=== PATIENT | male | born 1955 | race Caucasian/White ===

== ENCOUNTER → 2016-10-10 | Outpatient (CLI) | payer OTHER ==
[~2016-10-10] MED LIST: ASPEC81 PO; METO25TA3 PO; NTRGSL/4 UT; ROSU40TA PO; WARF5TAB90 PO
[2016-10-10 17:07] LABS: BASO % 0.7 %; BASO ABS # 0.03 K/uL (0-0.2); COMPLETE YES; EOS % 2.7 %; HEMATOCRIT 42.4 % (42-52); LYMPH % 39.5 %; LYMPH ABS # 1.75 K/uL (1.2-3.4); MEAN CELL VOLUME 91.2 fL (80-100); MEAN CORPUSCULAR HEMOGLOBIN 31.2 pg (25-34); MEAN CORPUSCULAR HGB CONC 34.2 g/dl (32-36); MEAN PLATELET VOLUME 11.7 fL (7.4-10.4); MONO % 9.9 %; NEUT % 47.2 %; PLATELET COUNT 260 K/uL (130-400); RED BLOOD COUNT 4.65 M/uL (4.7-6.1); WHITE BLOOD COUNT 4.43 K/uL (4.8-10.8)
[2016-10-10 17:36] LABS: ALT/SGPT 29 U/L (12-78); BLOOD UREA NITROGEN 14 mg/dl (7-18); BUN/CREATININE RATIO 11.5 (10-20); CALCIUM 8.8 mg/dl (8.5-10.1); CARBON DIOXIDE 29 mmol/L (21-32); CHLORIDE 104 mmol/L (98-107); CHOLESTEROL 181 mg/dl (0-200); GLUCOSE 96 mg/dl (70-99); SODIUM 140 mmol/L (136-145)
[2016-10-10 17:40] LABS: ALB/GLOB RATIO 1.1 (0.9-2); ALKALINE PHOSPHATASE 81 U/L (45-117); AST/SGOT 19 U/L (15-37); CHOLESTEROL/HDL RATIO 3.3; HDL CHOLESTEROL 55 mg/dl; LDL CHOLESTEROL CALCULATED 110 mg/dl; TRIGLYCERIDES 80 mg/dl (0-150); VERY LOW DENSITY LIPOPROT CALC 16 mg/dl
== END | disposition home or self-care (01) ==
LOC: C.LABBC 14:21
PROVIDERS: ATTEND Family Medicine
DX: I10 Essential (primary) hypertension (principal); N40.0 Benign prostatic hyperplasia without lower urinary tract symptoms; E78.5 Hyperlipidemia, unspecified; Z11.59 Encounter for screening for other viral diseases; Z13.0 Encounter for screening for diseases of the blood and blood-forming organs and certain disorders involving the immune mechanism

== ENCOUNTER → 2016-12-26 | Outpatient (CLI) | payer OTHER ==
[~2016-12-26] MED LIST changes: +ASPI81TA28 PO; +CLOP1TAB15 PO; +OXYC7.5T65 PO; +SULF800T23 PO; +VALA500T60 PO
[2016-12-26 18:11] LABS: ALT/SGPT 37 U/L (12-78); AST/SGOT 20 U/L (15-37)
== END | disposition home or self-care (01) ==
LOC: C.LAB1850 12:01
PROVIDERS: ATTEND Internal Medicine Cardiovascular Disease
DX: E78.5 Hyperlipidemia, unspecified (principal); I25.10 Atherosclerotic heart disease of native coronary artery without angina pectoris

== ENCOUNTER → 2017-07-29 | Day surgery (SDC) | payer OTHER ==
[2017-07-12 11:31] VITALS: BMI 35.0
--- NOTE | 2017-07-12 12:06 | PAT Medication Instructions ---
Service Date Jul 12, 2017. Current Home Medication List Aspirin (Aspirin Ec), 81 MG PO QAM Clopidogrel (Plavix), 75 MG PO QAM Metoprolol Succinate (Toprol Xl), 25 MG PO QAM Nitroglycerin (Nitrostat), 0.4 MG UT PRN Rosuvastatin Calcium (Crestor), 40 MG PO QAM Medication Instructions For Your Scheduled Surgery -Continue as directed: Nitroglycerin (Nitrostat), 0.4 MG UT PRN - Ask your surgeon for instructions for: Aspirin (Aspirin Ec), 81 MG PO QAM Clopidogrel (Plavix), 75 MG PO QAM Per cardiology can stop Plavix for 5-7 days if necessary but preferred to stay on it, and continue ASA 81mg - Take the following medications the morning of surgery with a sip of water: Rosuvastatin Calcium (Crestor), 40 MG PO QAM Metoprolol Succinate (Toprol Xl), 25 MG PO QAM If you have any questions please call us at [phone] or [phone] or [phone]
[2017-07-12 13:36] LABS: BASO % 0.4 %; BASO ABS # 0.02 K/uL (0-0.2); COMPLETE YES; EOS % 4.7 %; HEMATOCRIT 44.1 % (42-52); LYMPH % 39.2 %; LYMPH ABS # 1.76 K/uL (1.2-3.4); MEAN CELL VOLUME 90.6 fL (80-100); MEAN CORPUSCULAR HEMOGLOBIN 31.2 pg (25-34); MEAN CORPUSCULAR HGB CONC 34.5 g/dl (32-36); MEAN PLATELET VOLUME 11.4 fL (7.4-10.4); NEUT % 41.7 %; PLATELET COUNT 223 K/uL (130-400); RED BLOOD COUNT 4.87 M/uL (4.7-6.1); WHITE BLOOD COUNT 4.49 K/uL (4.8-10.8)
[2017-07-12 13:45] LABS: URINE APPEARANCE CLEAR (CLEAR); URINE BILIRUBIN NEG (NEG); URINE COLOR YELLOW; URINE NITRITE NEG (NEG); URINE PH 6.5 (4.5-7.5); URINE SPECIFIC GRAVITY 1.024 (1.000-1.030); UROBILINOGEN NEG (NEG)
[2017-07-12 13:54] LABS: MANUAL MICROSCOPIC REQUIRED? NO; REVIEW REQ? NO
[2017-07-12 14:28] LABS: BUN/CREATININE RATIO 18.3 (10-20); CREATININE 1.22 mg/dl (0.60-1.40); POTASSIUM 4.2 mmol/L (3.5-5.1)
[~2017-07-29] VITALS: Ht 182.9 cm; Wt 118.8 kg
[~2017-07-29] MED LIST changes: -ASPEC81 PO; +BUPIVACAINE 0.5 % 5 MG/1 ML MPF 30ML VIAL ONE; +CEFAZOLIN 2000MG IV PUSH 10 ML IV SCH; +DEXAMETHASONE SOD INJ 4 MG/ML VIAL ONE; +FENTANYL CITRATE INJ 50 MCG/1 ML 2 ML VIAL ONE; +LACTATED RINGER'S 1000ML 1,000 ML IV SCH; +LIDOCAINE HCL 1% 20 ML VIAL ONE; +LIDOCAINE HCL 2% 2 ML VIAL (20MG/ML) ONE; +MIDAZOLAM HCL 1 MG/ML 2ML VIAL ONE; +ONDANSETRON INJ 2 MG/ML 2 ML VIAL ONE; +OXYCODONE/ACETAMINOPHEN 7.5-325 TAB PO PRN; +PROPOFOL IV EMULSION 10 MG/ML 20 ML VIAL IV ONE; -WARF5TAB90 PO
[2017-07-29 09:18] VITALS: BP 116/76; PULSE 73; TEMP 36.7; O2SAT 98; Ht 182.9 cm; Wt 118.8 kg
--- NOTE | 2017-07-29 10:31 | History & Physical Bridge Note ---
H&P Re-Evaluation Bridge Note: I have examined the patient, reviewed the History & Physical and in the interval since the performance of the History & Physical I have noted the following changes of clinical significance: Biopsy of glans lesion and circumcision. No changes noted
--- NOTE | 2017-07-29 10:42 | [facility] Operative Report ---
Operative Report Operative Date Jul 29, 2017. Pre-Operative Diagnosis Nonhealing penile lesion and severe phimosis with ulceration Post-Operative Diagnosis Same Procedure(s) Performed Circumcision with Glans biopsy Surgeon [employer] Surgeon(s) None Estimated Blood Loss 10cc Findings Non healing lesions of glans with blanched appearance and phimotic ring with ulceration. Fluids See Anes Report Specimens 1. Foreskin 2. Excisional biopsy glans Drains None Anesthesia General Complication(s) None Disposition Recovery Room / PACU Indications Suspicious nonhealing lesion of the glans with severe phimosis. Conversation and risks and benefits discussed. Description of Procedure Patient was consented and brought back to the operating room. Patient was placed under anesthesia in the supine position. Patient was prepped and draped in the regular sterile fashion. A time out was completed. With the time out completed, a penile block was completed at the base of the penis with additional circumferential injection of local anesthetic. A tourniquet was placed at the base of the penis with a Carlyle drain. The penile glans lesion was marked and a scalpel used to excise the lesion and sent for pathological analysis. The wound base was cauterized and all bleeding controlled. 4-0 horizontal interrupted mattress chromic suture was utilized to close the wound and the area cleaned. The tourniquet was then removed and no additional bleeding was noted. Total time was approx 5 mins. The distal and proximal circumcision incisions were marked and a scapel taken circumferentially to incise the skin. A hemostat was used to connect the skin incisions and electrobovie was used to open the skin. Each edge was grasped with a small hemostat and the foreskin was dissected. All important land guardado were monitored. The foreskin was removed and sent for pathologic analysis. At this point, the wound bed was assessed and all bleeding controlled. The 12 and 6 o'clock position edges were reapproximated with a 3-0 chromic horizontal mattress suture. The sutures were tagged and then circumferentially interrupted suture was placed to approximate the edges. No areas of bleeding or concern. The ulcerated phimotic ring was completely excised and no additional suspicious areas remained. The area was cleaned and bandaged. The patient was awoken from anesthesia and transferred to the pacu in stable condition having tolerated the procedure well without any complications. I was present and completed the entire case. The patient will be monitored in the PACU until transferred. I attest to the content of the Intraoperative Record and any orders documented therein. Any exceptions are noted below.
--- NOTE | 2017-07-29 10:52 | Discharge Instructions ---
Discharge Instructions Date of Service Jul 29, 2017. Admission Reason for Admission: Penile Lesion, Ulcer, Phimosis Discharge Discharge Diagnosis / Problem: Penile Lesion, phimosis Discharge Goals Goal(s): Decrease discomfort, Improve function Activity Recommendations Activity Limitations: resume your previous activity Lifting Limitations: no more than 25 pounds Exercise/Sports Limitations: rest today, gradually increase as tolerated May Resume Sexual Activity: after follow-up appointment Shower/Bathe: tomorrow . Instructions / Follow-Up Instructions / Follow-Up Call if any fever, chills, discharge or other issues. Restart medications as ordered/planned by PCP and cardiology. Monitor for bleeding. Call if problems Okay to shower tomorrow AM. No scrubbing or soaking. Okay to wash 2-3 x daily with warm soapy water. No baths or hot tubs. Bandage as needed. Current Hospital Diet Patient's current hospital diet: Reg Discharge Diet Recommended Diet: Regular Diet Procedures Procedures Performed: Circumcision with Glans biopsy Pending Studies Studies pending at discharge: no Medical Emergencies . Who to Call and When: Medical Emergencies: If at any time you feel your situation is an emergency, please call 911 immediately. . Non-Emergent Contact Non-Emergency issues call your: Primary Care Provider, Urologist Call Non-Emergent contact if: you have a fever, temperature is above 101, temperature is above 101.5, your pain is not controlled, your pain is worsening , wound has increased drainage, wound has increased redness, wound has increased pain . . "Provider Documentation" section prepared by Golden Medrano,. . VTE Core Measure Inpt VTE Proph given/why not?: Landon Hernandez, [facility]
--- NOTE | 2017-07-29 12:34 | Anesthesiology Progress Note ---
Anesthesia Post Op Note Date & Time Jul 29, 2017 at 12:33 Vital Signs Pain Intensity: 0 Vital Signs Past 12 Hours Date Time Temp Pulse Resp B/P (MAP) Pulse Ox O2 Delivery O2 Flow Rate FiO2 07/29/17 12:25 67 13 113/67 94 Room Air 07/29/17 12:15 71 18 113/75 94 Oxymask 10 07/29/17 12:06 36.0 71 12 122/83 97 Oxymask 10 07/29/17 09:18 36.7 73 20 116/76 (89) 98 Room Air Notes Mental Status: alert / awake / arousable, participated in evaluation Pt Amnestic to Procedure: Yes Nausea / Vomiting: adequately controlled Pain: adequately controlled Airway Patency, RR, SpO2: stable & adequate BP & HR: stable & adequate Hydration State: stable & adequate Anesthetic Complications: no major complications apparent
[2017-07-29 13:50] VITALS: BP 108/61; PULSE 73; TEMP 36.5; O2SAT 96
== END | disposition home or self-care (01) ==
LOC: C.ACU 08:50
PROVIDERS: ATTEND Urology
DX: N48.29 Other inflammatory disorders of penis (principal); N48.5 Ulcer of penis; N47.1 Phimosis; I65.29 Occlusion and stenosis of unspecified carotid artery; N40.0 Benign prostatic hyperplasia without lower urinary tract symptoms; E78.5 Hyperlipidemia, unspecified; M19.90 Unspecified osteoarthritis, unspecified site; R55 Syncope and collapse; I25.2 Old myocardial infarction; Z79.899 Other long term (current) drug therapy

== ENCOUNTER → 2017-10-02 | Outpatient (CLI) | payer OTHER ==
[~2017-10-02] MED LIST changes: -BUPIVACAINE 0.5 % 5 MG/1 ML MPF 30ML VIAL ONE; -CEFAZOLIN 2000MG IV PUSH 10 ML IV SCH; -CLOP1TAB15 PO; -DEXAMETHASONE SOD INJ 4 MG/ML VIAL ONE; -FENTANYL CITRATE INJ 50 MCG/1 ML 2 ML VIAL ONE; -LACTATED RINGER'S 1000ML 1,000 ML IV SCH; -LIDOCAINE HCL 1% 20 ML VIAL ONE; -LIDOCAINE HCL 2% 2 ML VIAL (20MG/ML) ONE; -MIDAZOLAM HCL 1 MG/ML 2ML VIAL ONE; -ONDANSETRON INJ 2 MG/ML 2 ML VIAL ONE; -OXYCODONE/ACETAMINOPHEN 7.5-325 TAB PO PRN; -PROPOFOL IV EMULSION 10 MG/ML 20 ML VIAL IV ONE; -SULF800T23 PO
[2017-10-02 14:42] LABS: HEMATOCRIT 43.6 % (42-52); HEMOGLOBIN 15.1 g/dL (14.0-18.0); MEAN CELL VOLUME 89.9 fL (80-100); MEAN CORPUSCULAR HEMOGLOBIN 31.1 pg (25-34); MEAN CORPUSCULAR HGB CONC 34.6 g/dl (32-36); MEAN PLATELET VOLUME 11.2 fL (7.4-10.4); PLATELET COUNT 219 K/uL (130-400); RED CELL DISTRIBUTION WIDTH CV 12.6 % (11.5-14.5); RED CELL DISTRIBUTION WIDTH SD 41.3 fL (36.4-46.3); WHITE BLOOD COUNT 4.68 K/uL (4.8-10.8)
[2017-10-02 14:49] LABS: ALT/SGPT 33 U/L (12-78); AST/SGOT 19 U/L (15-37); BLOOD UREA NITROGEN 15 mg/dl (7-18); CALCIUM 8.3 mg/dl (8.5-10.1); CARBON DIOXIDE 26 mmol/L (21-32); CREATININE 1.04 mg/dl (0.60-1.40); GLUCOSE 91 mg/dl (70-99); POTASSIUM 3.6 mmol/L (3.5-5.1); SODIUM 137 mmol/L (136-145)
== END | disposition home or self-care (01) ==
LOC: C.LAB1850 13:28
PROVIDERS: ATTEND Internal Medicine Cardiovascular Disease
DX: I10 Essential (primary) hypertension (principal); E78.5 Hyperlipidemia, unspecified; I25.10 Atherosclerotic heart disease of native coronary artery without angina pectoris

== ENCOUNTER → 2017-11-11 | Outpatient (CLI) | payer OTHER ==
[~2017-11-11] MED LIST changes: -METO25TA3 PO; +METO25TA4 PO
[2017-11-11 12:27] LABS: BLOOD UREA NITROGEN 17 mg/dl (7-18); CALCIUM 8.8 mg/dl (8.5-10.1); CARBON DIOXIDE 27 mmol/L (21-32); CREATININE 1.28 mg/dl (0.60-1.40); GLUCOSE 120 mg/dl (70-99); POTASSIUM 3.7 mmol/L (3.5-5.1); SODIUM 136 mmol/L (136-145)
== END | disposition home or self-care (01) ==
LOC: C.LAB1850 10:52
PROVIDERS: ATTEND Internal Medicine Cardiovascular Disease
DX: I25.5 Ischemic cardiomyopathy (principal)

== ENCOUNTER → 2018-05-02 | Outpatient (CLI) | payer OTHER ==
[~2018-05-02] MED LIST changes: -OXYC7.5T65 PO
[2018-05-02 09:34] LABS: HEMATOCRIT 43.2 % (42-52); HEMOGLOBIN 14.8 g/dL (14.0-18.0); MEAN CORPUSCULAR HEMOGLOBIN 30.8 pg (25-34); MEAN CORPUSCULAR HGB CONC 34.3 g/dl (32-36); MEAN PLATELET VOLUME 12.1 fL (7.4-10.4); PLATELET COUNT 203 K/uL (130-400); RED CELL DISTRIBUTION WIDTH CV 13.2 % (11.5-14.5); RED CELL DISTRIBUTION WIDTH SD 43.7 fL (36.4-46.3); WHITE BLOOD COUNT 4.55 K/uL (4.8-10.8)
[2018-05-02 09:45] LABS: ALT/SGPT 28 U/L (12-78); AST/SGOT 18 U/L (15-37); BLOOD UREA NITROGEN 23 mg/dl (7-18); CALCIUM 8.2 mg/dl (8.5-10.1); CARBON DIOXIDE 24 mmol/L (21-32); CHOLESTEROL 165 mg/dl (0-200); CREATININE 1.05 mg/dl (0.60-1.40); GLUCOSE 107 mg/dl (70-99); LDL CHOLESTEROL CALCULATED 108 mg/dl; POTASSIUM 3.9 mmol/L (3.5-5.1); SODIUM 139 mmol/L (136-145)
== END | disposition home or self-care (01) ==
LOC: C.LAB1850 06:59
PROVIDERS: ATTEND Internal Medicine Cardiovascular Disease
DX: E78.5 Hyperlipidemia, unspecified (principal); I25.10 Atherosclerotic heart disease of native coronary artery without angina pectoris; I77.810 Thoracic aortic ectasia

== ENCOUNTER 2021-03-22 11:27 | Observation (INO) ==
--- NOTE | 2021-03-22 12:29 | Emergency Department Note ---
Impression & Plan SIRS (systemic inflammatory response syndrome), Fever, Back pain, Contusion of back ED Provider Note NAME: MARGARETTE EUGENE AGE: 65 SEX: M : 1955 ARRIVES VIA: Walk-In INFORMANT: Patient ED PROVIDER(S): Jhonny Nieto DO CHIEF COMPLAINT: fall HPI: Patient is a 65-year-old male with past medical history of ischemic cardiomyopathy, dilated aortic root on Eliquis that presents the ER following a fall on Saturday. 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 He is complaining of right upper and lower back pain. Pain is significant worse with movement. He got worse today. He does have some lightheadedness. He admits to feeling hot and cold. Over the past 3 days he has been having bright red blood per rectum. Denies any other chest pain or belly pain. No dysuria, urgency, or frequency. No other exacerbating or remitting factors. Patient does admit to a cough which has been present since this past Saturday when he fell. ROS: See above HPI for pertinent positives & negatives. A total of 10 systems reviewed and were otherwise negative. PAST MEDICAL HISTORY:See Below PAST SURGICAL HISTORY:See Below FAMILY HISTORY:See Below SOCIAL HISTORY:See Below HOME MEDICATIONS:See Below ALLERGIES:See Below VITALS:See Below PHYSICAL EXAMINATION: GENERAL: alert, well appearing, well nourished, no distress, non-toxic HEAD: normal cephalic, atraumatic EYE EXAM: normal conjunctiva, PERRL and EOM's grossly intact OROPHARYNX: no exudate, no erythema, lips, buccal mucosa, and tongue normal and mucous membranes are moist NECK: supple, no nuchal rigidity, no adenopathy, non-tender CHEST: stable to compression anteriorly and posteriorly LUNGS: clear to auscultation. Normal chest wall mechanics HEART: no murmurs, S1 normal and S2 normal ABDOMEN: abdomen soft, non-tender, normo-active bowel sounds, no masses, no rebound or guarding. PELVIS: stable to compression anteriorly and posteriorly BACK: Back is symmetrical on inspection and there is no deformity, midline tenderness in the lower to mid lumbar region with pain over the right lateral lower thoracic region tracking into the paraspinal musculature in the lower back bruising present. UPPER EXTREMITIES: full active and passive range of motion of all joints without tenderness to palpation LOWER EXTREMITIES: full active and passive range of motion of all joints without tenderness to palpation NEURO EXAM: Normal sensorium, cranial nerves II-XII grossly intact, normal speech, no gross weakness of arms, no gross weakness of legs. GCS: 15. MEDICAL DECISION MAKING: Patient is a 65-year-old male who presents ER following mechanical fall this past Saturday. Complaining of back pain. He does have chills as well as arthralgias and myalgias. Upon presentation he was found to be hypotensive with systolic pressures in the 80s. Labs showed no significant leukocytosis or anemia. Hemoglobin was 12.8. INR was unremarkable. BMP with mildly elevated BUN at 20. Creatinine 1.3. LFTs bilirubin was unremarkable. Troponin was negative. EKG did show worsening ST wave changes however he denied any chest pain or shortness of breath. His troponin is negative. UA was clean. Lyme was negative. Ordered anaplasmosis. Patient was given IV fluids x3 L combination with cefepime and doxycycline. Discussed with antitussive for further evaluation. Uncertain of the source of infection at this time. Patient was covered with broad-spectrum antibiotics and admitted for further work-up. Triage Nursing notes reviewed. Limited review of prior medical records performed Vital Signs: reviewed and remarkable for no significant abnormalities Differential diagnosis: Differential diagnoses include major intracranial, cervical, spinal, thoracic, abdominal, pelvic and neurologic injury. Fracture, contusion, sprain, strain, laceration, abrasions included as well. ER treatment provided: See below Diagnostics interpreted by me: ECG: Sinus rhythm rate 82 Normal axis T wave inversion in the inferior leads Septal Q waves as well as anterior Q waves. Mild ST wave changes anterior leads. Q wave and T wave changes are new from previous. Cardiac Monitoring: An order was placed for continuous cardiac monitoring. The monitor shows a rate of 80 with sinus rhythm. Laboratory studies: As stated above and show below. Imaging studies: CT cook scan shows no acute fractures Consultation(s): Discussed the hospitalist for further evaluation Procedures: none Critical Care: I have personally spent 32 minutes of critical care time in the direct management of this patient. This includes bedside care, interpretation of diagnostic studies, and testing, discussion with consultants, patient, and family members, and other required patient management activities. This 32 minutes is in excess of all separately billable procedures. Past Med/Surg History Medical History Arteriosclerosis of carotid artery BPH (benign prostatic hyperplasia) CAD, multiple vessel Dilated aortic root Hyperlipidemia Hypertension Left ventricular apical thrombus Leukopenia Lumbar compression fracture HX-NO SURGERY Myocardial Infarction Obesity (BMI 30.0-34.9) Osteoarthritis Surgical History H/O carotid endarterectomy RIGHT-C H/O knee surgery H/O total hip arthroplasty RIGHT History of cardiac cath History of cardiac cath History of colonoscopy History of coronary artery bypass graft Family History Mother Diabetes Gallbladder disease Hypertension Kidney stones Sister Anxiety Seizure Father Cardiac disorder Gallbladder disease Hypertension Kidney stones Leukemia Social History Smoking Status: Never smoker Second Hand Exposure: Yes (FIANCE SMOKES ON OCC); Hx Alcohol Use: Yes Alcohol type: beer Hx Substance Use: No Preferred Language: Tamaz[place] Communication Ability: Effective Visual Impairment: No Limitations Hearing Ability: Normal Dairy Clerk Required: No Beliefs That Will Affect Care: None marital status: Current Living Situation: Significant Other current occupational status: employed Feels Safe at Home: Yes Childhood Exposure to Second-Hand Smoke: Yes Dental Care, Regularly: No Physical Activity Frequency: Daily Seatbelt Use: never Sunscreen Use: Yes Assistive Devices: Denture - Upper Allergies Allergies Allergy/AdvReac Type Severity Reaction Status Date / Time amoxicillin Allergy Unknown "GETS Verified 03/22/21 13:59 INFECTIONS" Tshrrto-Ngw-Pil Reductase Allergy Unknown AFFECTS Verified 03/22/21 13:59 Inhibitor LIVER Home Meds Home Medications Medication Instructions Recorded Confirmed aspirin 81 mg tablet,delayed 81 mg PO QAM 02/15/19 03/22/21 release nitroglycerin 0.4 mg sublingual 0.4 mg SUBLINGUAL UD PRN 02/15/19 03/22/21 tablet apixaban 5 mg tablet (Eliquis) 5 mg PO QAM 01/01/21 03/22/21 cholecalciferol (vitamin D3) 25 1,000 unit PO QAM 01/01/21 03/22/21 mcg (1,000 unit) capsule rosuvastatin 40 mg tablet 40 mg PO QAM 01/01/21 03/22/21 Previous Rx's Medication Instructions Recorded tamsulosin 0.4 mg capsule 0.4 mg PO DAILY #90 cap 07/04/20 losartan 25 mg tablet 25 mg PO QAM #90 tab 12/02/20 metoprolol succinate 25 mg 25 mg PO QAM #90 tab 01/09/21 tablet,extended release 24 hr cyanocobalamin (vitamin B-12) 1,000 mcg PO QAM #90 tab 02/01/21 1,000 mcg tablet (Vitamin B-12) sildenafil (pulm.hypertension) 20 20 mg PO .COMPLEX PRN #30 tab 02/01/21 mg tablet Results & Data (ED) Vital Signs Vital Signs - 24 hr 03/22/21 11:32 03/22/21 11:54 03/22/21 12:28 Temperature 36.4 C L Temperature Source Temporal Artery Scan Pulse Rate 82 Pulse Rate [Right] 78 84 Pulse Rate from SpO2 Sensor Pulse Rhythm Pulse Rhythm [Right] Regular Pulse Strength [Right] Normal Respiratory Rate 18 18 18 Respiratory Effort / Characteristics Non-Labored Non-Labored Respiratory Depth Normal Normal Respiratory Pattern Blood Pressure Blood Pressure [Left Arm] 115/62 87/47 L Blood Pressure Mean Blood Pressure Mean [Left Arm] 79 60 Blood Pressure Position [Left Arm] Lying Pulse Oximetry 99 98 99 Oxygen Delivery Method Room Air Sepsis Recent Fever Within 48 Hours No Sepsis New/Unexplained Change in Mental Status No Sepsis Action Taken by Nursing No Action Required 03/22/21 12:35 03/22/21 12:40 03/22/21 12:48 Temperature 38.1 C H Temperature Source Oral Pulse Rate 84 Pulse Rate [Right] 80 81 Pulse Rate from SpO2 Sensor Pulse Rhythm Regular Pulse Rhythm [Right] Regular Pulse Strength [Right] Normal Respiratory Rate 18 20 22 Respiratory Effort / Characteristics Non-Labored Spontaneous Respiratory Depth Normal Respiratory Pattern Regular Blood Pressure Blood Pressure [Left Arm] 83/45 L 87/43 L Blood Pressure Mean Blood Pressure Mean [Left Arm] 57 57 Blood Pressure Position [Left Arm] Lying Lying Pulse Oximetry 98 98 97 Oxygen Delivery Method Room Air Room Air Sepsis Recent Fever Within 48 Hours Sepsis New/Unexplained Change in Mental Status Sepsis Action Taken by Nursing 03/22/21 12:52 03/22/21 12:55 03/22/21 13:00 Temperature Temperature Source Pulse Rate 79 Pulse Rate [Right] 88 88 Pulse Rate from SpO2 Sensor 78 Pulse Rhythm Pulse Rhythm [Right] Regular Pulse Strength [Right] Normal Respiratory Rate 18 20 20 Respiratory Effort / Characteristics Non-Labored Spontaneous Respiratory Depth Normal Respiratory Pattern Regular Blood Pressure Blood Pressure [Left Arm] 86/46 L 96/45 L Blood Pressure Mean Blood Pressure Mean [Left Arm] 59 62 Blood Pressure Position [Left Arm] Lying Pulse Oximetry 96 98 98 Oxygen Delivery Method Room Air Sepsis Recent Fever Within 48 Hours Sepsis New/Unexplained Change in Mental Status Sepsis Action Taken by Nursing 03/22/21 13:05 03/22/21 13:43 03/22/21 13:58 Temperature 37.2 C Temperature Source Oral Pulse Rate Pulse Rate [Right] 88 90 Pulse Rate from SpO2 Sensor Pulse Rhythm Pulse Rhythm [Right] Regular Regular Pulse Strength [Right] Normal Normal Respiratory Rate 20 20 Respiratory Effort / Characteristics Non-Labored Spontaneous Non-Labored Spontaneous Respiratory Depth Normal Normal Respiratory Pattern Regular Regular Blood Pressure Blood Pressure [Left Arm] 92/51 L 107/58 L Blood Pressure Mean Blood Pressure Mean [Left Arm] 64 74 Blood Pressure Position [Left Arm] Lying Lying Pulse Oximetry 98 99 Oxygen Delivery Method Room Air Room Air Sepsis Recent Fever Within 48 Hours Sepsis New/Unexplained Change in Mental Status Sepsis Action Taken by Nursing 03/22/21 14:00 03/22/21 14:15 03/22/21 14:31 Temperature Temperature Source Pulse Rate 87 Pulse Rate [Right] 91 H 88 Pulse Rate from SpO2 Sensor Pulse Rhythm Pulse Rhythm [Right] Regular Pulse Strength [Right] Normal Respiratory Rate 18 18 18 Respiratory Effort / Characteristics Respiratory Depth Respiratory Pattern Blood Pressure 117/64 Blood Pressure [Left Arm] 117/59 L 117/59 L Blood Pressure Mean 81 Blood Pressure Mean [Left Arm] 78 78 Blood Pressure Position [Left Arm] Sitting Pulse Oximetry 98 99 99 Oxygen Delivery Method Room Air Room Air Sepsis Recent Fever Within 48 Hours Sepsis New/Unexplained Change in Mental Status Sepsis Action Taken by Nursing 03/22/21 14:58 03/22/21 15:09 03/22/21 16:03 Temperature Temperature Source Pulse Rate Pulse Rate [Right] 93 H 90 82 Pulse Rate from SpO2 Sensor Pulse Rhythm Pulse Rhythm [Right] Regular Pulse Strength [Right] Normal Respiratory Rate 18 18 18 Respiratory Effort / Characteristics Non-Labored Spontaneous Respiratory Depth Normal Respiratory Pattern Regular Blood Pressure Blood Pressure [Left Arm] 105/53 L 88/49 L 100/55 L Blood Pressure Mean Blood Pressure Mean [Left Arm] 70 62 70 Blood Pressure Position [Left Arm] Sitting Lying Pulse Oximetry 98 97 99 Oxygen Delivery Method Room Air Room Air Sepsis Recent Fever Within 48 Hours Sepsis New/Unexplained Change in Mental Status Sepsis Action Taken by Nursing 03/22/21 16:36 Temperature Temperature Source Pulse Rate Pulse Rate [Right] 76 Pulse Rate from SpO2 Sensor Pulse Rhythm Pulse Rhythm [Right] Regular Pulse Strength [Right] Respiratory Rate 18 Respiratory Effort / Characteristics Respiratory Depth Respiratory Pattern Blood Pressure Blood Pressure [Left Arm] 98/55 L Blood Pressure Mean Blood Pressure Mean [Left Arm] 69 Blood Pressure Position [Left Arm] Pulse Oximetry 98 Oxygen Delivery Method Room Air Sepsis Recent Fever Within 48 Hours Sepsis New/Unexplained Change in Mental Status Sepsis Action Taken by Nursing Laboratory Data Result diagrams: 03/22/21 12:39 03/22/21 12:39 Lab Results 03/22/21 03/22/21 03/22/21 Range/Units 12:39 12:39 12:39 WBC 8.29 (4.8-10.8) K/uL RBC 4.11 L (4.7-6.1) M/uL Hgb 12.8 L (14.0-18.0) g/dL POC Hgb (14.0-18.0) g/dl Hct 38.7 L (42-52) % POC Hct (42-52) % MCV 94.2 (80-100) fL MCH 31.1 (25-34) pg MCHC 33.1 (32-36) g/dL RDW Std Deviation 45.9 (36.4-46.3) fL RDW Coeff of Dayanna 13.3 (11.5-14.5) % Plt Count 190 (130-400) K/uL MPV 10.7 H (7.4-10.4) fL Immature Gran % (Auto) 0.1 % Neut % (Auto) 90.7 % Lymph % (Auto) 3.4 % [place] % (Auto) 5.5 % Eos % (Auto) 0.1 % Baso % (Auto) 0.2 % Neut # (Auto) 7.51 H (1.4-6.5) K/uL Lymph # (Auto) 0.28 L (1.2-3.4) K/uL [place] # (Auto) 0.46 (0.11-0.59) K/uL Eos # (Auto) 0.01 (0-0.5) K/uL Baso # (Auto) 0.02 (0-0.2) K/uL Immature Gran # (Auto) 0.01 (0.00-0.02) K/uL PT 10.7 (9.0-12.0) Seconds INR 1.1 (0.9-1.1) POC Sodium (135-144) mmol/L Sodium 139 (136-145) mmol/L POC Potassium (3.3-5.0) mmol/L Potassium 4.0 (3.5-5.1) mmol/L POC Chloride (101-112) mmol/L Chloride 109 H (98-107) mmol/L Carbon Dioxide 28 (21-32) mmol/L POC Total CO2 (24-31) mmol/L Anion Gap 2.0 L (3-11) POC Anion Gap (16-25) mmol/L POC BUN (7-18) mg/dl BUN 20 H (7-18) mg/dl Creatinine 1.34 (0.6-1.4) mg/dl POC Creatinine (0.6-1.3) mg/dl Est Cr Clr Drug Dosing 71.0 ml/min Est GFR ( Amer) 64.9 ml/min Est GFR (Non-Af Amer) 56.0 ml/min BUN/Creatinine Ratio 15.1 (10-20) Glucose 88 (70-99) mg/dl POC Glucose (other) (70-99) mg/dl Lactate (0.4-2.0) mmol/L Calcium 8.5 (8.5-10.1) mg/dl POC Ioniz Calcium Gadiel (1.12-1.32) mmol/l Total Bilirubin 1.0 (0.2-1) mg/dl AST 12 L (15-37) U/L ALT 20 (12-78) U/L Alkaline Phosphatase 57 (45-117) U/L Troponin I < 0.015 (0-0.045) ng/ml Total Protein 6.3 L (6.4-8.2) gm/dl Albumin 3.4 (3.4-5.0) gm/dl Globulin 2.9 (2.5-4.0) gm/dl Albumin/Globulin Ratio 1.2 (0.9-2) Procalcitonin (0-0.5) ng/ml Urine Color Urine Appearance (Clear) Urine pH (4.5-7.5) Ur Specific [place] (1.000-1.030) Urine Protein (Negative) Urine Glucose (UA) (Negative) Urine Ketones (Negative) Urine Blood (Negative) Urine Nitrite (Negative) Urine Bilirubin (Negative) Urine Urobilinogen (Negative) Ur Leukocyte Esterase (Negative) Anaplasma Smear Lyme Disease IgG Ab (Negative) Lyme Disease IgM Ab (Negative) Blood Type Antibody Screen Crossmatch 03/22/21 03/22/21 03/22/21 Range/Units 12:39 12:39 12:39 WBC (4.8-10.8) K/uL RBC (4.7-6.1) M/uL Hgb (14.0-18.0) g/dL POC Hgb (14.0-18.0) g/dl Hct (42-52) % POC Hct (42-52) % MCV (80-100) fL MCH (25-34) pg MCHC (32-36) g/dL RDW Std Deviation (36.4-46.3) fL RDW Coeff of Dayanna (11.5-14.5) % Plt Count (130-400) K/uL MPV (7.4-10.4) fL Immature Gran % (Auto) % Neut % (Auto) % Lymph % (Auto) % [place] % (Auto) % Eos % (Auto) % Baso % (Auto) % Neut # (Auto) (1.4-6.5) K/uL Lymph # (Auto) (1.2-3.4) K/uL [place] # (Auto) (0.11-0.59) K/uL Eos # (Auto) (0-0.5) K/uL Baso # (Auto) (0-0.2) K/uL Immature Gran # (Auto) (0.00-0.02) K/uL PT (9.0-12.0) Seconds INR (0.9-1.1) POC Sodium (135-144) mmol/L Sodium (136-145) mmol/L POC Potassium (3.3-5.0) mmol/L Potassium (3.5-5.1) mmol/L POC Chloride (101-112) mmol/L Chloride (98-107) mmol/L Carbon Dioxide (21-32) mmol/L POC Total CO2 (24-31) mmol/L Anion Gap (3-11) POC Anion Gap (16-25) mmol/L POC BUN (7-18) mg/dl BUN (7-18) mg/dl Creatinine (0.6-1.4) mg/dl POC Creatinine (0.6-1.3) mg/dl Est Cr Clr Drug Dosing ml/min Est GFR ( Amer) ml/min Est GFR (Non-Af Amer) ml/min BUN/Creatinine Ratio (10-20) Glucose (70-99) mg/dl POC Glucose (other) (70-99) mg/dl Lactate (0.4-2.0) mmol/L Calcium (8.5-10.1) mg/dl POC Ioniz Calcium Gadiel (1.12-1.32) mmol/l Total Bilirubin (0.2-1) mg/dl AST (15-37) U/L ALT (12-78) U/L Alkaline Phosphatase (45-117) U/L Troponin I (0-0.045) ng/ml Total Protein (6.4-8.2) gm/dl Albumin (3.4-5.0) gm/dl Globulin (2.5-4.0) gm/dl Albumin/Globulin Ratio (0.9-2) Procalcitonin 0.35 (0-0.5) ng/ml Urine Color Dark Yellow Urine Appearance Clear (Clear) Urine pH 6.5 (4.5-7.5) Ur Specific [place] 1.022 (1.000-1.030) Urine Protein Negative (Negative) Urine Glucose (UA) Negative (Negative) Urine Ketones Negative (Negative) Urine Blood Negative (Negative) Urine Nitrite Negative (Negative) Urine Bilirubin Negative (Negative) Urine Urobilinogen Negative (Negative) Ur Leukocyte Esterase Negative (Negative) Anaplasma Smear Lyme Disease IgG Ab Negative (Negative) Lyme Disease IgM Ab Negative (Negative) Blood Type Antibody Screen Crossmatch 03/22/21 03/22/21 03/22/21 Range/Units 12:46 14:23 14:23 WBC (4.8-10.8) K/uL RBC (4.7-6.1) M/uL Hgb (14.0-18.0) g/dL POC Hgb 12.6 L (14.0-18.0) g/dl Hct (42-52) % POC Hct 37 L (42-52) % MCV (80-100) fL MCH (25-34) pg MCHC (32-36) g/dL RDW Std Deviation (36.4-46.3) fL RDW Coeff of Dayanna (11.5-14.5) % Plt Count (130-400) K/uL MPV (7.4-10.4) fL Immature Gran % (Auto) % Neut % (Auto) % Lymph % (Auto) % [place] % (Auto) % Eos % (Auto) % Baso % (Auto) % Neut # (Auto) (1.4-6.5) K/uL Lymph # (Auto) (1.2-3.4) K/uL [place] # (Auto) (0.11-0.59) K/uL Eos # (Auto) (0-0.5) K/uL Baso # (Auto) (0-0.2) K/uL Immature Gran # (Auto) (0.00-0.02) K/uL PT (9.0-12.0) Seconds INR (0.9-1.1) POC Sodium 139 (135-144) mmol/L Sodium (136-145) mmol/L POC Potassium 3.8 (3.3-5.0) mmol/L Potassium (3.5-5.1) mmol/L POC Chloride 102 (101-112) mmol/L Chloride (98-107) mmol/L Carbon Dioxide (21-32) mmol/L POC Total CO2 23 L (24-31) mmol/L Anion Gap (3-11) POC Anion Gap 19.0 (16-25) mmol/L POC BUN 20 H (7-18) mg/dl BUN (7-18) mg/dl Creatinine (0.6-1.4) mg/dl POC Creatinine 1.4 H (0.6-1.3) mg/dl Est Cr Clr Drug Dosing ml/min Est GFR ( Amer) ml/min Est GFR (Non-Af Amer) ml/min BUN/Creatinine Ratio (10-20) Glucose (70-99) mg/dl POC Glucose (other) 97 (70-99) mg/dl Lactate 1.0 (0.4-2.0) mmol/L Calcium (8.5-10.1) mg/dl POC Ioniz Calcium Gadiel 1.20 (1.12-1.32) mmol/l Total Bilirubin (0.2-1) mg/dl AST (15-37) U/L ALT (12-78) U/L Alkaline Phosphatase (45-117) U/L Troponin I (0-0.045) ng/ml Total Protein (6.4-8.2) gm/dl Albumin (3.4-5.0) gm/dl Globulin (2.5-4.0) gm/dl Albumin/Globulin Ratio (0.9-2) Procalcitonin (0-0.5) ng/ml Urine Color Urine Appearance (Clear) Urine pH (4.5-7.5) Ur Specific [place] (1.000-1.030) Urine Protein (Negative) Urine Glucose (UA) (Negative) Urine Ketones (Negative) Urine Blood (Negative) Urine Nitrite (Negative) Urine Bilirubin (Negative) Urine Urobilinogen (Negative) Ur Leukocyte Esterase (Negative) Anaplasma Smear Lyme Disease IgG Ab (Negative) Lyme Disease IgM Ab (Negative) Blood Type A Positive Antibody Screen NEGATIVE Crossmatch See Detail 03/22/21 Range/Units 15:23 WBC (4.8-10.8) K/uL RBC (4.7-6.1) M/uL Hgb (14.0-18.0) g/dL POC Hgb (14.0-18.0) g/dl Hct (42-52) % POC Hct (42-52) % MCV (80-100) fL MCH (25-34) pg MCHC (32-36) g/dL RDW Std Deviation (36.4-46.3) fL RDW Coeff of Dayanna (11.5-14.5) % Plt Count (130-400) K/uL MPV (7.4-10.4) fL Immature Gran % (Auto) % Neut % (Auto) % Lymph % (Auto) % [place] % (Auto) % Eos % (Auto) % Baso % (Auto) % Neut # (Auto) (1.4-6.5) K/uL Lymph # (Auto) (1.2-3.4) K/uL [place] # (Auto) (0.11-0.59) K/uL Eos # (Auto) (0-0.5) K/uL Baso # (Auto) (0-0.2) K/uL Immature Gran # (Auto) (0.00-0.02) K/uL PT (9.0-12.0) Seconds INR (0.9-1.1) POC Sodium (135-144) mmol/L Sodium (136-145) mmol/L POC Potassium (3.3-5.0) mmol/L Potassium (3.5-5.1) mmol/L POC Chloride (101-112) mmol/L Chloride (98-107) mmol/L Carbon Dioxide (21-32) mmol/L POC Total CO2 (24-31) mmol/L Anion Gap (3-11) POC Anion Gap (16-25) mmol/L POC BUN (7-18) mg/dl BUN (7-18) mg/dl Creatinine (0.6-1.4) mg/dl POC Creatinine (0.6-1.3) mg/dl Est Cr Clr Drug Dosing ml/min Est GFR ( Amer) ml/min Est GFR (Non-Af Amer) ml/min BUN/Creatinine Ratio (10-20) Glucose (70-99) mg/dl POC Glucose (other) (70-99) mg/dl Lactate (0.4-2.0) mmol/L Calcium (8.5-10.1) mg/dl POC Ioniz Calcium Gadiel (1.12-1.32) mmol/l Total Bilirubin (0.2-1) mg/dl AST (15-37) U/L ALT (12-78) U/L Alkaline Phosphatase (45-117) U/L Troponin I (0-0.045) ng/ml Total Protein (6.4-8.2) gm/dl Albumin (3.4-5.0) gm/dl Globulin (2.5-4.0) gm/dl Albumin/Globulin Ratio (0.9-2) Procalcitonin (0-0.5) ng/ml Urine Color Urine Appearance (Clear) Urine pH (4.5-7.5) Ur Specific [place] (1.000-1.030) Urine Protein (Negative) Urine Glucose (UA) (Negative) Urine Ketones (Negative) Urine Blood (Negative) Urine Nitrite (Negative) Urine Bilirubin (Negative) Urine Urobilinogen (Negative) Ur Leukocyte Esterase (Negative) Anaplasma Smear See Comment Lyme Disease IgG Ab (Negative) Lyme Disease IgM Ab (Negative) Blood Type Antibody Screen Crossmatch Administered Medications Lactated Ringer's (Lr) 1,000 mls @ 80 mls/hr IV .[id number] DEBI Stop: 04/21/21 16:44 Last Admin: 03/22/21 18:12 Dose: 80 mls/hr Documented by: [id number] Discontinued Medications Acetaminophen (Acetaminophen 325 Mg Tab) Confirm Administered Dose 650 mg .ROUTE .STK-MED ONE Stop: 03/22/21 18:23 Last Admin: 03/22/21 18:23 Dose: 650 mg Documented by: Cefepime HCl (Cefepime 2,000 Mg/20 Ml Vial) Confirm Administered Dose 2,000 mg .ROUTE .STK-MED ONE Stop: 03/22/21 14:39 Last Admin: 03/22/21 14:44 Dose: 2,000 mg Documented by: [id number] Sodium Chloride (Nss 1000ml) 2,000 mls @ 999 mls/hr IV .Q2H1M ONE Stop: 03/22/21 14:32 Last Infusion: 03/22/21 14:00 Dose: 0 mls/hr Documented by: [id number] Admin: 03/22/21 12:47 Dose: 999 mls/hr Documented by: [id number] Sodium Chloride (Nss 1000ml) 1,000 mls @ 999 mls/hr IV .Q1H1M ONE Stop: 03/22/21 14:15 Last Infusion: 03/22/21 14:58 Dose: 0 mls/hr Documented by: [id number] Admin: 03/22/21 13:48 Dose: 999 mls/hr Documented by: [id number] Cefepime HCl 2,000 mg/ Syringe 20 mls @ 5 mls/min IV NOW STA; Protocol Stop: 03/22/21 13:18 Last Admin: 03/22/21 14:46 Dose: Not Given Documented by: [id number] Doxycycline Hyclate 100 mg/ (Dextrose) 110 mls @ 50 mls/hr IV NOW STA Stop: 03/22/21 17:14 Last Admin: 03/22/21 16:08 Dose: 50 mls/hr Documented by: [id number] Sodium Chloride (Nss 1000ml) 1,000 mls @ 999 mls/hr IV .Q1H1M ONE Stop: 03/22/21 16:19 Last Infusion: 03/22/21 16:36 Dose: 0 mls/hr Documented by: [id number] Admin: 03/22/21 15:31 Dose: 999 mls/hr Documented by: [id number] Ioversol (Optiray 320 100ml) 94 ml IV ONCE ONE Stop: 03/22/21 13:30 Last Admin: 03/22/21 13:29 Dose: 94 ml Documented by: [id number] Imaging Data Radiologist's Impression: Abdomen/Pelvis CT 03/22/21 12:25 CT OF THE ABDOMEN AND PELVIS WITH CONTRAST CLINICAL HISTORY: fall on thinner r back pain COMPARISON STUDY: CT of the abdomen and pelvis February 15, 2019. TECHNIQUE: Following IV administration of 94 mL of Optiray, axial images of the abdomen and pelvis were obtained from the lung bases to the proximal femurs. Images were reviewed in the axial, sagittal, and coronal planes. IV contrast was administered without complication. Automated exposure control was utilized for the study. A dose lowering technique was utilized adhering to the principles of ALARA. FINDINGS: Mild subcutaneous contusion of the right lower back is noted. The chest will be reported separately. Note is made of cardiomegaly. 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 No hemoperitoneum or pneumoperitoneum is present. There is no evidence for traumatic injury to the liver, spleen, adrenal glands, kidneys or pancreas. A right renal cyst is incidentally noted. Cortical calcification within the left kidney is noted. There is also a calcification within the right kidney. There is no hydronephrosis. Caliber and wall thickness of small and large bowel are normal. There is no evidence for a bowel obstruction. Left hip arthroplasty is noted. No acute lumbar spine or pelvic fractures identified. Prostate is mildly enlarged. There are gallstones within the gallbladder. There is no evidence for acute cholecystitis. IMPRESSION: No acute traumatic findings within the abdomen or pelvis. ACT 112: Negative or not required by law. Electronically signed by: Sanjeev Alexandra M.D. 03/22/2021 1:[address] 03/22/21 12:25 CT cervical spine wo con CT DOSE: 3165.79 mGy.cm CLINICAL HISTORY: 65 years-old Male with fall. Acute neck trauma status post fall COMPARISON: Head CT of same day TECHNIQUE: Multiple axial CT images of the cervical spine were obtained without contrast. A dose lowering technique was utilized adhering to the principles of ALARA. FINDINGS: Moderate degeneration at C1-C2. Mild multilevel intervertebral disc space narro wing with mild to moderate anterior endplate osteophytic spurring and moderate to severe multilevel facet arthrosis. Degenerative related bony fusion of the right C4-C5 facets. Partial bony fusion of the right C7-T1 facets. No prevertebral edema. No pneumothorax. Unremarkable soft tissues. IMPRESSION: No acute fracture or subluxation. ACT 112: Negative or not required by law. The above report was generated using voice recognition software. It may contain grammatical, syntax or spelling errors. Electronically signed by: Celestino Lux M.D. 03/22/2021 1:[address] 03/22/21 12:25 CT OF THE CHEST WITH IV CONTRAST CLINICAL HISTORY: Trauma. Right-sided chest pain. Patient on blood thinners. COMPARISON STUDY: No previous studies for comparison. TECHNIQUE: Following the IV administration of 94 mL of Optiray, CT of the thorax was performed from the thoracic inlet to the lung bases. Images are reviewed in the axial, sagittal, and coronal planes. IV contrast was administered without complication. A dose lowering technique was utilized adhe ring to the principles of ALARA. CT DOSE: FINDINGS: Thyroid: Imaged portions of the thyroid gland are normal in appearance. Thoracic aorta: The thoracic aorta is normal in course and caliber, noting standard 3-vessel arch anatomy. No aneurysm or dissection is seen. Pulmonary vasculature: The pulmonary trunk is normal in caliber. There are no central filling defects identified to suggest pulmonary embolus. Note that this examination was not protocoled for the evaluation of pulmonary emboli. HEART: The heart is mildly enlarged. There are extensive coronary calcifications. Lungs and pleural spaces: There are no pleural effusions. There is no pneumothorax. There is mild dependent atelectasis. There is mild respiratory motion artifact. Mediastinum: There is no evidence of pathologic mediastinal adenopathy. There is no evidence of mediastinal hematoma. Alia: There is no evidence of pathologic hilar lymphadenopathy Axilla: There is no evidence of pathologic axillary lymphadenopathy. Upper abdomen: Partially visualized upper abdominal viscera is within normal limits. Skeletal structures: There are postsurgical changes of midline sternotomy. There is subtle age-indeterminate deformities of the right third fourth and fifth ribs anterolaterally. IMPRESSION: 1. Subtle age-indeterminate deformities of the right third through fifth ribs anterolaterally 3. No evidence of pneumothorax 4. No evidence of pulmonary contusion 5. No evidence of mediastinal hematoma ACT 112: Negative or not required by law. Electronically signed by: John Landeros M.D. 03/22/2021 1:50 PM Chest X-Ray 03/22/21 12:25 XR chest 1V portable HISTORY: 65 years-old Male fall chest wall pain acute chest wall pain status post fall COMPARISON: Chest radiograph 02/15/2019 TECHNIQUE: Portable AP view the chest FINDINGS: Cardiac silhouette is enlarged. Prior median sternotomy. There is no pneumothorax, pleural effusion, airspace consolidation or overt pulmonary edema. Degenerative changes of the shoulders and spine. IMPRESSION: Cardiomegaly without acute process. ACT 112: Negative or not required by law. The above report was generated using voice recognition software. It may contain grammatical, syntax or spelling errors. Electronically signed by: Celestino Lux M.D. 03/22/2021 1:[address] 03/22/21 12:25 CT OF THE HEAD WITHOUT CONTRAST CLINICAL HISTORY: fall COMPARISON STUDY: No previous studies for comparison. TECHNIQUE: Helical axial images of the head were obtained without IV contrast. Automated exposure control was utilized for the study. A dose lowering technique was utilized adhering to the principles of ALARA. FINDINGS: No acute intracranial hemorrhage, midline shift or mass effect is present. The ventricular system is unremarkable. The basal cisterns are patent. No extra-axial collections are present. There are no findings to suggest acute dural sinus thrombosis or acute territorial infarct. No significant calvarial abnormalities are present. No calvarial fracture. Right sphenoid sinus is largely opacified. This is likely chronic. IMPRESSION: 1. No acute intracranial findings. 2. No calvarial fracture. 3. Largely opacified right sphenoid sinus. ACT 112: Negative or not required by law. Electronically signed by: Sanjeev Alexandra M.D. 03/22/2021 1:[address] 03/22/21 12:25 CT lumbar spine w con HISTORY: Low back pain. fall TECHNIQUE: Multiaxial CT images of the lumbar spine were performed and reformatted in the sagittal and coronal plane following the intravenous administration of contrast. COMPARISON STUDY: None. FINDINGS: No fractures or subluxation within the lumbar spine. Moderate facet degenerative changes throughout the lumbar spine. There is severe disc space narrowing at L5-S1. Remaining disc spaces are observed. The visualized sacrum is intact. Paravertebral soft tissues are unremarkable. Moderate central canal narrowing at L3-L4. Mild central canal narrowing at L4-L5. IMPRESSION: No fractures within the lumbar spine. ACT 112: Negative or not required by law. Electronically signed by: Seb Borges M.D. 03/22/2021 1:[address] 03/22/21 12:25 CT thoracic spine w con HISTORY: 65 years-old Male fall no acute chest and back pain status post trauma COMPARISON: CT chest, abdomen and pelvis studies of same day TECHNIQUE: Multiple axial CT images of the thoracic spine were obtained without the use of IV contrast. A dose lowering technique was used consistent with the principals of ALARA. FINDINGS: Multilevel anterior endplate bridging osteophytosis with mild to moderate facet arthrosis. Mild multilevel intervertebral disc space narrowing. Mild mid thoracic dextroscoliosis. No acute fracture or subluxation. No acute rib fracture. Unremarkable soft tissues. No paravertebral edema. IMPRESSION: No acute fracture. ACT 112: Negative or not required by law. The above report was generated using voice recognition software. It may contain grammatical, syntax or spelling errors. Electronically signed by: Celestino Lux M.D. 03/22/2021 1:55 PM Discharge Plan Visit Data Chief Complaint: Fall Stated Complaint: BLOOD IN STOOL, PRIOR FALL, LIGHTHEADED, CHILLS ED Provider: Jhonny Nieto Discharge Problem: SIRS (systemic inflammatory response syndrome), Fever, Back pain, Contusion of back Patient Disposition: Admitted As Inpatient Discharge Problem: Fever Qualifiers: Fever type: unspecified Qualified Code(s): R50.9 - Fever, unspecified Back pain Qualifiers: Back pain location: low back pain Chronicity: acute Back pain laterality: unspecified Sciatica presence: unspecified whether sciatica present Qualified Code(s): M54.5 - Low back pain Contusion of back Qualifiers: Encounter type: initial encounter Laterality: unspecified laterality Qualified Code(s): S20.229A - Contusion of unspecified back wall of thorax, initial encounter
[2021-03-22] MEDS ORDERED: SODIUM CHLORIDE 0.9% 1000ML 2,000 ML IV ONE (12:32)
[2021-03-22] MEDS ORDERED: SODIUM CHLORIDE 0.9% 250 ML IV PRN (12:32)
[2021-03-22 12:51] LABS: Basophils # (auto) 0.02 K/uL (0-0.2); Basophils % (auto) 0.2 %; Eosinophils # (auto) 0.01 K/uL (0-0.5); Eosinophils % (auto) 0.1 %; Hematocrit (blood only) 38.7 % (42-52); Hemoglobin 12.8 g/dL (14.0-18.0); Immature Granulocytes # (auto) 0.01 K/uL (0.00-0.02); Immature Granulocytes % (auto) 0.1 %; Lymphocytes # (auto) 0.28 K/uL (1.2-3.4); Lymphocytes % (auto) 3.4 %; Mean Corpuscular Hemoglobin 31.1 pg (25-34); Mean Corpuscular Hgb Conc 33.1 g/dL (32-36); Mean Corpuscular Volume 94.2 fL (80-100); Mean Platelet Volume 10.7 fL (7.4-10.4); Monocytes # (auto) 0.46 K/uL (0.11-0.59); Monocytes % (auto) 5.5 %; Neutrophils # (auto) 7.51 K/uL (1.4-6.5); Neutrophils % (auto) 90.7 %; Platelet Count 190 K/uL (130-400); RDW Coefficient of Variation 13.3 % (11.5-14.5); RDW Standard Deviation 45.9 fL (36.4-46.3); Red Blood Count 4.11 M/uL (4.7-6.1); White Blood Count 8.29 K/uL (4.8-10.8)
[2021-03-22 12:59] LABS: Appearance Urine Clear (Clear); Bilirubin Urine Negative (Negative); Blood Urine Negative (Negative); Color Urine Dark Yellow; Glucose Urine UA Negative (Negative); Ketones Urine Negative (Negative); Leukocyte Esterase Urine Negative (Negative); Nitrite Urine Negative (Negative); Protein Urine Negative (Negative); Specific Gravity Urine 1.022 (1.000-1.030); Urobilinogen Urine Negative (Negative); pH Urine 6.5 (4.5-7.5)
[2021-03-22 13:00] LABS: iSTAT Creatinine 1.4 mg/dl (0.6-1.3); iSTAT Hemoglobin 12.6 g/dl (14.0-18.0); iSTAT Ionized Calcium 1.2 mmol/l (1.12-1.32); iSTAT Potassium 3.8 mmol/L (3.3-5.0)
[2021-03-22 13:02] LABS: INR 1.1 (0.9-1.1); Prothrombin Time 10.7 Seconds (9.0-12.0)
--- NOTE | 2021-03-22 13:08 | XRay Report ---
XR chest 1V portable HISTORY: 65 years-old Male fall chest wall pain acute chest wall pain status post fall COMPARISON: Chest radiograph 02/15/2019 TECHNIQUE: Portable AP view the chest FINDINGS: Cardiac silhouette is enlarged. Prior median sternotomy. There is no pneumothorax, pleural effusion, airspace consolidation or overt pulmonary edema. Degenerative changes of the shoulders and spine. IMPRESSION: Cardiomegaly without acute process. ACT 112: Negative or not required by law. The above report was generated using voice recognition software. It may contain grammatical, syntax o r spelling errors. Electronically signed by: Celestino Lux M.D. 03/22/2021 1:06 PM
[2021-03-22 13:14] LABS: Alanine Aminotransferase 20 U/L (12-78); Albumin Level 3.4 gm/dl (3.4-5.0); Aspartate Aminotransferase 12 U/L (15-37); BUN Creatinine Ratio 15.1 (10-20); Blood Urea Nitrogen 20 mg/dl (7-18); Calcium 8.5 mg/dl (8.5-10.1); Carbon Dioxide 28 mmol/L (21-32); Chloride 109 mmol/L (98-107); Est GFR (African American) 64.9 ml/min; Glucose 88 mg/dl (70-99); Sodium 139 mmol/L (136-145)
[2021-03-22] MEDS ORDERED: CEFEPIME 2,000 MG in SYRINGE 0 ML IV STA (13:15)
[2021-03-22] MEDS ORDERED: SODIUM CHLORIDE 0.9% 1000ML 1,000 ML IV ONE ×2 (13:15→15:19)
[2021-03-22 13:18] LABS: Albumin Globulin Ratio 1.2 (0.9-2); Alkaline Phosphatase 57 U/L (45-117); Globulin 2.9 gm/dl (2.5-4.0); Total Protein 6.3 gm/dl (6.4-8.2); Troponin I < 0.015 ng/ml (0-0.045)
[2021-03-22] MEDS ORDERED: OPTIRAY 320 100ml IV ONE (13:29)
--- NOTE | 2021-03-22 13:30 | CT Scan Report ---
CT cervical spine wo con CT DOSE: 3165.79 mGy.cm CLINICAL HISTORY: 65 years-old Male with fall. Acute neck trauma status post fall COMPARISON: Head CT of same day TECHNIQUE: Multiple axial CT images of the cervical spine were obtained without contrast. A dose low ering technique was utilized adhering to the principles of ALARA. FINDINGS: Moderate degeneration at C1-C2. Mild multilevel intervertebral disc space narrowing with mild to mode rate anterior endplate osteophytic spurring and moderate to severe multilevel facet arthrosis. Degene rative related bony fusion of the right C4-C5 facets. Partial bony fusion of the right C7-T1 facets. No prevertebral edema. No pneumothorax. Unremarkable soft tissues. IMPRESSION: No acute fracture or subluxation. ACT 112: Negative or not required by law. The above report was generated using voice recognition software. It may contain grammatical, syntax o r spelling errors. Electronically signed by: Celestino Lux M.D. 03/22/2021 1:29 PM
--- NOTE | 2021-03-22 13:33 | CT Scan Report ---
CT OF THE HEAD WITHOUT CONTRAST CLINICAL HISTORY: fall COMPARISON STUDY: No previous studies for comparison. TECHNIQUE: Helical axial images of the head were obtained without IV contrast. Automated exposure con trol was utilized for the study. A dose lowering technique was utilized adhering to the principles o f ALARA. FINDINGS: No acute intracranial hemorrhage, midline shift or mass effect is present. The ventricular system is unremarkable. The basal cisterns are patent. No extra-axial collections are present. There are no findings to suggest acute dural sinus thrombosis or acute territorial infarct. No significant calvarial abnormalities are present. No calvarial fracture. Right sphenoid sinus is largely opacified . This is likely chronic. IMPRESSION: 1. No acute intracranial findings. 2. No calvarial fracture. 3. Largely opacified right sphenoid sinus. ACT 112: Negative or not required by law. Electronically signed by: Sanjeev Alexandra M.D. 03/22/2021 1:32 PM
--- NOTE | 2021-03-22 13:51 | CT Scan Report ---
CT OF THE CHEST WITH IV CONTRAST CLINICAL HISTORY: Trauma. Right-sided chest pain. Patient on blood thinners. COMPARISON STUDY: No previous studies for comparison. TECHNIQUE: Following the IV administration of 94 mL of Optiray, CT of the thorax was performed from the thoracic inlet to the lung bases. Images are reviewed in the axial, sagittal, and coronal planes. IV contrast was administered without complication. A dose lowering technique was utilized adhering to the principles of ALARA. CT DOSE: FINDINGS: Thyroid: Imaged portions of the thyroid gland are normal in appearance. Thoracic aorta: The thoracic aorta is normal in course and caliber, noting standard 3-vessel arch nabila milady. No aneurysm or dissection is seen. Pulmonary vasculature: The pulmonary trunk is normal in caliber. There are no central filling defects identified to suggest pulmonary embolus. Note that this examination was not protocoled for the evalu ation of pulmonary emboli. HEART: The heart is mildly enlarged. There are extensive coronary calcifications. Lungs and pleural spaces: There are no pleural effusions. There is no pneumothorax. There is mild dep endent atelectasis. There is mild respiratory motion artifact. Mediastinum: There is no evidence of pathologic mediastinal adenopathy. There is no evidence of media stinal hematoma. Alia: There is no evidence of pathologic hilar lymphadenopathy Axilla: There is no evidence of pathologic axillary lymphadenopathy. Upper abdomen: Partially visualized upper abdominal viscera is within normal limits. Skeletal structures: There are postsurgical changes of midline sternotomy. There is subtle age-indete rminate deformities of the right third fourth and fifth ribs anterolaterally. IMPRESSION: 1. Subtle age-indeterminate deformities of the right third through fifth ribs anterolaterally 3. No evidence of pneumothorax 4. No evidence of pulmonary contusion 5. No evidence of mediastinal hematoma ACT 112: Negative or not required by law. Electronically signed by: John Landeros M.D. 03/22/2021 1:50 PM
--- NOTE | 2021-03-22 13:56 | CT Scan Report ---
CT thoracic spine w con HISTORY: 65 years-old Male fall no acute chest and back pain status post trauma COMPARISON: CT chest, abdomen and pelvis studies of same day TECHNIQUE: Multiple axial CT images of the thoracic spine were obtained without the use of IV contras t. A dose lowering technique was used consistent with the principals of ADILENE. FINDINGS: Multilevel anterior endplate bridging osteophytosis with mild to moderate facet arthrosis. Mild multi level intervertebral disc space narrowing. Mild mid thoracic dextroscoliosis. No acute fracture or retana bluxation. No acute rib fracture. Unremarkable soft tissues. No paravertebral edema. IMPRESSION: No acute fracture. ACT 112: Negative or not required by law. The above report was generated using voice recognition software. It may contain grammatical, syntax o r spelling errors. Electronically signed by: Celestino Lux M.D. 03/22/2021 1:55 PM
--- NOTE | 2021-03-22 13:56 | CT Scan Report ---
CT lumbar spine w con HISTORY: Low back pain. fall TECHNIQUE: Multiaxial CT images of the lumbar spine were performed and reformatted in the sagittal an d coronal plane following the intravenous administration of contrast. COMPARISON STUDY: None. FINDINGS: No fractures or subluxation within the lumbar spine. Moderate facet degenerative changes th roughout the lumbar spine. There is severe disc space narrowing at L5-S1. Remaining disc spaces are o bserved. The visualized sacrum is intact. Paravertebral soft tissues are unremarkable. Moderate centr al canal narrowing at L3-L4. Mild central canal narrowing at L4-L5. IMPRESSION: No fractures within the lumbar spine. ACT 112: Negative or not required by law. Electronically signed by: Seb Borges M.D. 03/22/2021 1:55 PM
--- NOTE | 2021-03-22 13:57 | CT Scan Report ---
CT OF THE ABDOMEN AND PELVIS WITH CONTRAST CLINICAL HISTORY: fall on thinner r back pain COMPARISON STUDY: CT of the abdomen and pelvis February 15, 2019. TECHNIQUE: Following IV administration of 94 mL of Optiray, axial images of the abdomen and pelvis we re obtained from the lung bases to the proximal femurs. Images were reviewed in the axial, sagittal, and coronal planes. IV contrast was administered without complication. Automated exposure control wa s utilized for the study. A dose lowering technique was utilized adhering to the principles of ALARA . FINDINGS: Mild subcutaneous contusion of the right lower back is noted. The chest will be reported se parately. Note is made of cardiomegaly. 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 No hemoperitoneum or pneumoperitoneum is present. There is no evidence for traumatic injury to the live r, spleen, adrenal glands, kidneys or pancreas. A right renal cyst is incidentally noted. Cortical ca lcification within the left kidney is noted. There is also a calcification within the right kidney. T here is no hydronephrosis. Caliber and wall thickness of small and large bowel are normal. There is n o evidence for a bowel obstruction. Left hip arthroplasty is noted. No acute lumbar spine or pelvic f ractures identified. Prostate is mildly enlarged. There are gallstones within the gallbladder. There is no evidence for acute cholecystitis. IMPRESSION: No acute traumatic findings within the abdomen or pelvis. ACT 112: Negative or not required by law. Electronically signed by: Sanjeev Alexandra M.D. 03/22/2021 1:56 PM
[2021-03-22 14:31] LABS: Lyme Ab IgG w/WB Rflx Negative (Negative); Lyme Ab IgM w/WB Rflx Negative (Negative)
[2021-03-22] MEDS ORDERED: CEFEPIME 2,000 MG/20 ML VIAL ONE (14:38)
--- NOTE | 2021-03-22 14:52 | History & Physical Report ---
Date of Service March 22, 2021 Assessment & Plan (1) SIRS (systemic inflammatory response syndrome): Plan: Patient presents with fever and chills, hypotension, tachycardia, but with normal procalcitonin and lactate. No leukocytosis or leukopenia. Chest x-ray and chest CT negative for pneumonia. UA negative for UTI Covid-[address] head does show mostly opacified right sphenoid sinus-could be secondary to acute sinusitis -Could also be a tickborne illness although Lyme is negative and Anaplasma smear is negative Could be acute prostatitis? No signs of unusual joint pains or abdominal pain. Does have cholelithiasis on CT but no abdominal tenderness and normal LFTs. Source of infection unclear at this point. Admit to PCU for telemetry monitoring -Continue maintenance fluids with LR-he already received almost 4 L of bolus normal saline in the ER and blood pressures are improved -Hold all home antihypertensives -Continue broad-spectrum antibiotics to cover for acute sinusitis as well as empiric for bacteremia-continue with cefepime and continue doxycycline in case of tickborne illness -Follow-up in Anaplasma DNA PCR when available although this seems less likely given normal LFTs and normal platelets -Follow blood cultures -Tylenol or ibuprofen as needed for fever -If develops abdominal pain, would work-up further for acute cholecystitis -Consider bio fire viral respiratory panel (2) Fever: Plan: As above (3) Hypotension: Plan: As above No need for vasopressors at this point as respond to crystalloids (4) Arteriosclerosis of carotid artery: Plan: Status post carotid endarterectomy Continue home aspirin and rosuvastatin (5) CAD, multiple vessel: Plan: Status post CABG Continue aspirin, statin Holding home beta-natividad for hypotension No ischemic changes on EKG and no chest pain Troponin here is negative (6) Dilated aortic root: Plan: Continue good blood pressure control as an outpatient (7) Hyperlipidemia: Plan: Continue statin (8) Hypertension: Plan: Holding all home antihypertensives as above for hypotension Restart when blood pressures are improved (9) Ischemic dilated cardiomyopathy: Plan: With and to moderately reduced LV function at 40-45% Holding home metoprolol Is not volume overloaded at this time Holding home losartan Daily weights, strict I's and O's (10) Left ventricular apical thrombus: Plan: With a history of such and remains on apixaban-patient reports he only takes apixaban once daily-counseled that this is meant to be twice daily drug Continue Eliquis Most recent echocardiogram in the fall 2019 shows that LV thrombus have resolved (11) Obesity (BMI 30.0-34.9): Plan: BMI 31.7 Needs weight loss (12) Back pain: Plan: Secondary to contusion from recent fall Tylenol or ibuprofen as needed No large hematoma seen on CT scan (13) BPH (benign prostatic hyperplasia): Plan: Continue home tamsulosin (14) Contusion of back: Plan: As above (15) Rectal bleeding: Plan: Very minimal Okay to continue apixaban Follow CBC (16) DVT prophylaxis: Plan: Eliquis Disposition-admit to PCU History of Present Illness Chief Complaint: Lightheadedness, weakness, chills Primary Care Provider: Mick Maguire DO This patient is a 65-year-old male with history of ischemic cardiomyopathy, dilated aortic root, multivessel CAD status post CABG and PCI, dyslipidemia, HTN, carotid artery stenosis status post left CEA, and LV apical thrombus on Eliquis who presents to the ER with lightheadedness as well as chills and sweats that started the morning of admission. He also had some right-sided back pain after suffering a fall 4 days ago while trying to get onto a skid powder loader. Has had very minimal bright red blood per rectum over the last 3 days on the toilet paper but denies any abdominal pain-of note, he has not taken his Eliquis for 3 days as he did not feel well. No dysuria, urgency, or frequency. Has mild bitemporal headache but no visual changes. Denies facial pain, tooth pain, sinus congestion or rhinorrhea. Denies sore throat. Does have a mild cough. Denies nausea or vomiting, no diarrhea or constipation, no abdominal pain. Denies any chest pain or shortness of breath. He denies any skin rashes or unusual joint pains over his usual arthritis pain. Denies any recent known bites. In the ER, he was found to be hypotensive with systolic blood pressures in the 80s as well as febrile. He had a very mild anemia with hemoglobin of 12.8 down from 14.91-month ago, normal WBC count and platelets. His CMP was unremarkable and his troponin was negative. A urinalysis was completely normal. Covid test was negative as was Lyme titer. Anaplasma smear was negative. A CT of the thoracic spine, lumbar spine, and cervical spine as well as the abdomen/pelvis, chest, and head were all performed. A contusion of the lower back was seen on CT a/p and gallstones but no evidence of acute cholecystitis. Chest neg for PNA. He was also noted on CT head to have a largely opacified sphenoid sinus on the right. He was treated with IV cefepime empirically for sepsis and doxycycline in case of tickborne illness empirically and given a total of 3 L of normal saline for his hypotension. Allergies Allergy/AdvReac Type Severity Reaction Status Date / Time [id number] Reductase Allergy Intermediate AFFECTS Verified 03/22/21 19:16 Inhibitor LIVER amoxicillin Allergy Mild "GETS Verified 03/22/21 19:16 INFECTIONS" Home Medications Medication Instructions Recorded Confirmed Type aspirin 81 mg tablet,delayed 81 mg PO QAM 02/15/19 03/22/21 History release nitroglycerin 0.4 mg sublingual 0.4 mg SUBLINGUAL UD PRN 02/15/19 03/22/21 History tablet tamsulosin 0.4 mg capsule 0.4 mg PO DAILY #90 cap 07/04/20 03/22/21 Rx losartan 25 mg tablet 25 mg PO QAM #90 tab 12/02/20 03/22/21 Rx apixaban 5 mg tablet (Eliquis) 5 mg PO QAM 01/01/21 03/22/21 History cholecalciferol (vitamin D3) 25 1,000 unit PO QAM 01/01/21 03/22/21 History mcg (1,000 unit) capsule rosuvastatin 40 mg tablet 40 mg PO QAM 01/01/21 03/22/21 History metoprolol succinate 25 mg 25 mg PO QAM #90 tab 01/09/21 03/22/21 Rx tablet,extended release 24 hr cyanocobalamin (vitamin B-12) 1,000 mcg PO QAM #90 tab 02/01/21 03/22/21 Rx 1,000 mcg tablet (Vitamin B-12) sildenafil (pulm.hypertension) 20 20 mg PO .COMPLEX PRN #30 tab 02/01/21 03/22/21 Rx mg tablet Past Med/Surg History Medical History (Updated 03/22/21 @ 23:39 by Jen Law MD) Arteriosclerosis of carotid artery BPH (benign prostatic hyperplasia) CAD, multiple vessel Dilated aortic root Hyperlipidemia Hypertension Ischemic dilated cardiomyopathy Left ventricular apical thrombus Leukopenia Lumbar compression fracture HX-NO SURGERY Myocardial Infarction Obesity (BMI 30.0-34.9) Osteoarthritis Surgical History H/O carotid endarterectomy RIGHT-C H/O knee surgery H/O total hip arthroplasty RIGHT History of cardiac cath History of cardiac cath History of colonoscopy History of coronary artery bypass graft Family History Mother Diabetes Gallbladder disease Hypertension Kidney stones Sister Anxiety Seizure Father Cardiac disorder Gallbladder disease Hypertension Kidney stones Leukemia Social History (Updated 03/22/21 @ 23:26 by Jen Law MD) Smoking Status: Never smoker Second Hand Exposure: Yes (FIANCE SMOKES ON OCC); Hx Alcohol Use: Yes Alcohol type: beer Alcohol Intake Frequency: 4 or More x per/Week Alcohol Intake Frequency Comment: 1-2 beers per night Hx Substance Use: No Preferred Language: Kyrgyz Communication Ability: Effective Visual Impairment: No Limitations Hearing Ability: Normal Front Desk Associate Required: No Beliefs That Will Affect Care: None marital status: Current Living Situation: Alone current occupational status: employed Other Information That Helps Us Care for You: No Feels Safe at Home: Yes Safety Concerns: Feels Safe At This Time Childhood Exposure to Second-Hand Smoke: Yes Dental Care, Regularly: No Physical Activity Frequency: Daily Seatbelt Use: never Sunscreen Use: Yes Assistive Devices: Denture - Upper Review of Systems Review of Systems: All systems reviewed & are unremarkable except as noted in HPI & below Physical Exam Constitutional: WD/WN, vitals as above Eyes: PERRL, conjunctivae normal, anicteric sclerae ENMT: external ear and nose normal, oropharynx normal Neck: trachea midline, no thyromegaly Respiratory: normal respiratory effort, lungs clear to auscultation Cardiovascular: RRR, no murmur, no edema Chest (Breasts): Chest: normal inspection of chest Gastrointestinal (Abdomen): normal bowel sounds, soft, nontender, no hepatosplenomegaly Musculoskeletal: Extremities: extremities normal to inspection; no cyanosis and no clubbing Skin: no rashes, warm and dry + ecchymosis (Small hematoma right lower back) Neurologic: moves all extremities and awake; no focal motor deficits Psychiatric: A+Ox3, euthymic affect Lymphatic: no lymphedema Results & Data Results & Data ([facility]) Vital Signs (Past 12 Hours) Vital Signs Temp Pulse Pulse Resp BP Pulse Ox 03/22/21 14:31 88 18 117/59 L 99 03/22/21 13:58 37.2 C 03/22/21 13:43 90 20 107/58 L 99 03/22/21 13:05 88 20 92/51 L 98 03/22/21 13:00 88 20 96/45 L 98 03/22/21 12:55 88 20 86/46 L 98 03/22/21 12:52 79 18 96 03/22/21 12:48 38.1 C H 81 22 87/43 L 97 03/22/21 12:40 80 20 83/45 L 98 03/22/21 12:35 84 18 98 03/22/21 12:28 84 18 87/47 L 99 03/22/21 11:54 78 18 115/62 98 03/22/21 11:32 36.4 C L 82 18 99 Laboratory Results 03/22/21 03/22/21 03/22/21 Range/Units Unknown Unknown 15:23 WBC (4.8-10.8) K/uL RBC (4.7-6.1) M/uL Hgb (14.0-18.0) g/dL POC Hgb (14.0-18.0) g/dl Hct (42-52) % POC Hct (42-52) % MCV (80-100) fL MCH (25-34) pg MCHC (32-36) g/dL RDW Std Deviation (36.4-46.3) fL RDW Coeff of Dayanna (11.5-14.5) % Plt Count (130-400) K/uL MPV (7.4-10.4) fL Immature Gran % (Auto) % Neut % (Auto) % Lymph % (Auto) % [place] % (Auto) % Eos % (Auto) % Baso % (Auto) % Neut # (Auto) (1.4-6.5) K/uL Lymph # (Auto) (1.2-3.4) K/uL [place] # (Auto) (0.11-0.59) K/uL Eos # (Auto) (0-0.5) K/uL Baso # (Auto) (0-0.2) K/uL Immature Gran # (Auto) (0.00-0.02) K/uL PT (9.0-12.0) Seconds INR (0.9-1.1) POC Sodium (135-144) mmol/L Sodium (136-145) mmol/L POC Potassium (3.3-5.0) mmol/L Potassium (3.5-5.1) mmol/L POC Chloride (101-112) mmol/L Chloride (98-107) mmol/L Carbon Dioxide (21-32) mmol/L POC Total CO2 (24-31) mmol/L Anion Gap (3-11) POC Anion Gap (16-25) mmol/L POC BUN (7-18) mg/dl BUN (7-18) mg/dl Creatinine (0.6-1.4) mg/dl POC Creatinine (0.6-1.3) mg/dl Est Cr Clr Drug Dosing ml/min Est GFR ( Amer) ml/min Est GFR (Non-Af Amer) ml/min BUN/Creatinine Ratio (10-20) Glucose (70-99) mg/dl POC Glucose (other) (70-99) mg/dl Lactate (0.4-2.0) mmol/L Calcium (8.5-10.1) mg/dl POC Ioniz Calcium Gadiel (1.12-1.32) mmol/l Total Bilirubin (0.2-1) mg/dl AST (15-37) U/L ALT (12-78) U/L Alkaline Phosphatase (45-117) U/L Troponin I (0-0.045) ng/ml Total Protein (6.4-8.2) gm/dl Albumin (3.4-5.0) gm/dl Globulin (2.5-4.0) gm/dl Albumin/Globulin Ratio (0.9-2) Urine Color Urine Appearance (Clear) Urine pH (4.5-7.5) Ur Specific Spade (1.000-1.030) Urine Protein (Negative) Urine Glucose (UA) (Negative) Urine Ketones (Negative) Urine Blood (Negative) Urine Nitrite (Negative) Urine Bilirubin (Negative) Urine Urobilinogen (Negative) Ur Leukocyte Esterase (Negative) Anaplasma Smear A. phagocytophilum DNA Pending Lyme Disease IgG Ab (Negative) Lyme Disease IgM Ab (Negative) COVID-19 Eval Order Covid19 at [facility] SARS-CoV-2 (PCR) NEGATIVE (Negative) Blood Type Antibody Screen Crossmatch 03/22/21 03/22/21 03/22/21 Range/Units 15:23 14:23 14:23 WBC (4.8-10.8) K/uL RBC (4.7-6.1) M/uL Hgb (14.0-18.0) g/dL POC Hgb (14.0-18.0) g/dl Hct (42-52) % POC Hct (42-52) % MCV (80-100) fL MCH (25-34) pg MCHC (32-36) g/dL RDW Std Deviation (36.4-46.3) fL RDW Coeff of Dayanna (11.5-14.5) % Plt Count (130-400) K/uL MPV (7.4-10.4) fL Immature Gran % (Auto) % Neut % (Auto) % Lymph % (Auto) % [place] % (Auto) % Eos % (Auto) % Baso % (Auto) % Neut # (Auto) (1.4-6.5) K/uL Lymph # (Auto) (1.2-3.4) K/uL [place] # (Auto) (0.11-0.59) K/uL Eos # (Auto) (0-0.5) K/uL Baso # (Auto) (0-0.2) K/uL Immature Gran # (Auto) (0.00-0.02) K/uL PT (9.0-12.0) Seconds INR (0.9-1.1) POC Sodium (135-144) mmol/L Sodium (136-145) mmol/L POC Potassium (3.3-5.0) mmol/L Potassium (3.5-5.1) mmol/L POC Chloride (101-112) mmol/L Chloride (98-107) mmol/L Carbon Dioxide (21-32) mmol/L POC Total CO2 (24-31) mmol/L Anion Gap (3-11) POC Anion Gap (16-25) mmol/L POC BUN (7-18) mg/dl BUN (7-18) mg/dl Creatinine (0.6-1.4) mg/dl POC Creatinine (0.6-1.3) mg/dl Est Cr Clr Drug Dosing ml/min Est GFR ( Amer) ml/min Est GFR (Non-Af Amer) ml/min BUN/Creatinine Ratio (10-20) Glucose (70-99) mg/dl POC Glucose (other) (70-99) mg/dl Lactate 1.0 (0.4-2.0) mmol/L Calcium (8.5-10.1) mg/dl POC Ioniz Calcium Gadiel (1.12-1.32) mmol/l Total Bilirubin (0.2-1) mg/dl AST (15-37) U/L ALT (12-78) U/L Alkaline Phosphatase (45-117) U/L Troponin I (0-0.045) ng/ml Total Protein (6.4-8.2) gm/dl Albumin (3.4-5.0) gm/dl Globulin (2.5-4.0) gm/dl Albumin/Globulin Ratio (0.9-2) Urine Color Urine Appearance (Clear) Urine pH (4.5-7.5) Ur Specific Spade (1.000-1.030) Urine Protein (Negative) Urine Glucose (UA) (Negative) Urine Ketones (Negative) Urine Blood (Negative) Urine Nitrite (Negative) Urine Bilirubin (Negative) Urine Urobilinogen (Negative) Ur Leukocyte Esterase (Negative) Anaplasma Smear Pending A. phagocytophilum DNA Lyme Disease IgG Ab (Negative) Lyme Disease IgM Ab (Negative) COVID-19 Eval Order SARS-CoV-2 (PCR) (Negative) Blood Type A Positive Antibody Screen NEGATIVE Crossmatch See Detail 03/22/21 03/22/21 03/22/21 Range/Units 12:46 12:39 12:39 WBC (4.8-10.8) K/uL RBC (4.7-6.1) M/uL Hgb (14.0-18.0) g/dL POC Hgb 12.6 L (14.0-18.0) g/dl Hct (42-52) % POC Hct 37 L (42-52) % MCV (80-100) fL MCH (25-34) pg MCHC (32-36) g/dL RDW Std Deviation (36.4-46.3) fL RDW Coeff of Dayanna (11.5-14.5) % Plt Count (130-400) K/uL MPV (7.4-10.4) fL Immature Gran % (Auto) % Neut % (Auto) % Lymph % (Auto) % [place] % (Auto) % Eos % (Auto) % Baso % (Auto) % Neut # (Auto) (1.4-6.5) K/uL Lymph # (Auto) (1.2-3.4) K/uL [place] # (Auto) (0.11-0.59) K/uL Eos # (Auto) (0-0.5) K/uL Baso # (Auto) (0-0.2) K/uL Immature Gran # (Auto) (0.00-0.02) K/uL PT (9.0-12.0) Seconds INR (0.9-1.1) POC Sodium 139 (135-144) mmol/L Sodium (136-145) mmol/L POC Potassium 3.8 (3.3-5.0) mmol/L Potassium (3.5-5.1) mmol/L POC Chloride 102 (101-112) mmol/L Chloride (98-107) mmol/L Carbon Dioxide (21-32) mmol/L POC Total CO2 23 L (24-31) mmol/L Anion Gap (3-11) POC Anion Gap 19.0 (16-25) mmol/L POC BUN 20 H (7-18) mg/dl BUN (7-18) mg/dl Creatinine (0.6-1.4) mg/dl POC Creatinine 1.4 H (0.6-1.3) mg/dl Est Cr Clr Drug Dosing ml/min Est GFR ( Amer) ml/min Est GFR (Non-Af Amer) ml/min BUN/Creatinine Ratio (10-20) Glucose (70-99) mg/dl POC Glucose (other) 97 (70-99) mg/dl Lactate (0.4-2.0) mmol/L Calcium (8.5-10.1) mg/dl POC Ioniz Calcium Gadiel 1.20 (1.12-1.32) mmol/l Total Bilirubin (0.2-1) mg/dl AST (15-37) U/L ALT (12-78) U/L Alkaline Phosphatase (45-117) U/L Troponin I (0-0.045) ng/ml Total Protein (6.4-8.2) gm/dl Albumin (3.4-5.0) gm/dl Globulin (2.5-4.0) gm/dl Albumin/Globulin Ratio (0.9-2) Urine Color Dark Yellow Urine Appearance Clear (Clear) Urine pH 6.5 (4.5-7.5) Ur Specific Spade 1.022 (1.000-1.030) Urine Protein Negative (Negative) Urine Glucose (UA) Negative (Negative) Urine Ketones Negative (Negative) Urine Blood Negative (Negative) Urine Nitrite Negative (Negative) Urine Bilirubin Negative (Negative) Urine Urobilinogen Negative (Negative) Ur Leukocyte Esterase Negative (Negative) Anaplasma Smear A. phagocytophilum DNA Lyme Disease IgG Ab Negative (Negative) Lyme Disease IgM Ab Negative (Negative) COVID-19 Eval Order SARS-CoV-2 (PCR) (Negative) Blood Type Antibody Screen Crossmatch 03/22/21 03/22/21 03/22/21 Range/Units 12:39 12:39 12:39 WBC 8.29 (4.8-10.8) K/uL RBC 4.11 L (4.7-6.1) M/uL Hgb 12.8 L (14.0-18.0) g/dL POC Hgb (14.0-18.0) g/dl Hct 38.7 L (42-52) % POC Hct (42-52) % MCV 94.2 (80-100) fL MCH 31.1 (25-34) pg MCHC 33.1 (32-36) g/dL RDW Std Deviation 45.9 (36.4-46.3) fL RDW Coeff of Dayanna 13.3 (11.5-14.5) % Plt Count 190 (130-400) K/uL MPV 10.7 H (7.4-10.4) fL Immature Gran % (Auto) 0.1 % Neut % (Auto) 90.7 % Lymph % (Auto) 3.4 % [place] % (Auto) 5.5 % Eos % (Auto) 0.1 % Baso % (Auto) 0.2 % Neut # (Auto) 7.51 H (1.4-6.5) K/uL Lymph # (Auto) 0.28 L (1.2-3.4) K/uL [place] # (Auto) 0.46 (0.11-0.59) K/uL Eos # (Auto) 0.01 (0-0.5) K/uL Baso # (Auto) 0.02 (0-0.2) K/uL Immature Gran # (Auto) 0.01 (0.00-0.02) K/uL PT 10.7 (9.0-12.0) Seconds INR 1.1 (0.9-1.1) POC Sodium (135-144) mmol/L Sodium 139 (136-145) mmol/L POC Potassium (3.3-5.0) mmol/L Potassium 4.0 (3.5-5.1) mmol/L POC Chloride (101-112) mmol/L Chloride 109 H (98-107) mmol/L Carbon Dioxide 28 (21-32) mmol/L POC Total CO2 (24-31) mmol/L Anion Gap 2.0 L (3-11) POC Anion Gap (16-25) mmol/L POC BUN (7-18) mg/dl BUN 20 H (7-18) mg/dl Creatinine 1.34 (0.6-1.4) mg/dl POC Creatinine (0.6-1.3) mg/dl Est Cr Clr Drug Dosing 71.0 ml/min Est GFR ( Amer) 64.9 ml/min Est GFR (Non-Af Amer) 56.0 ml/min BUN/Creatinine Ratio 15.1 (10-20) Glucose 88 (70-99) mg/dl POC Glucose (other) (70-99) mg/dl Lactate (0.4-2.0) mmol/L Calcium 8.5 (8.5-10.1) mg/dl POC Ioniz Calcium Gadiel (1.12-1.32) mmol/l Total Bilirubin 1.0 (0.2-1) mg/dl AST 12 L (15-37) U/L ALT 20 (12-78) U/L Alkaline Phosphatase 57 (45-117) U/L Troponin I < 0.015 (0-0.045) ng/ml Total Protein 6.3 L (6.4-8.2) gm/dl Albumin 3.4 (3.4-5.0) gm/dl Globulin 2.9 (2.5-4.0) gm/dl Albumin/Globulin Ratio 1.2 (0.9-2) Urine Color Urine Appearance (Clear) Urine pH (4.5-7.5) Ur Specific Spade (1.000-1.030) Urine Protein (Negative) Urine Glucose (UA) (Negative) Urine Ketones (Negative) Urine Blood (Negative) Urine Nitrite (Negative) Urine Bilirubin (Negative) Urine Urobilinogen (Negative) Ur Leukocyte Esterase (Negative) Anaplasma Smear A. phagocytophilum DNA Lyme Disease IgG Ab (Negative) Lyme Disease IgM Ab (Negative) COVID-19 Eval Order SARS-CoV-2 (PCR) (Negative) Blood Type Antibody Screen Crossmatch Diagnostic Findings Abdomen/Pelvis CT 03/22/21 12:25 CT OF THE ABDOMEN AND PELVIS WITH CONTRAST CLINICAL HISTORY: fall on thinner r back pain COMPARISON STUDY: CT of the abdomen and pelvis February 15, 2019. TECHNIQUE: Following IV administration of 94 mL of Optiray, axial images of the abdomen and pelvis were obtained from the lung bases to the proximal femurs. Images were reviewed in the axial, sagittal, and coronal planes. IV contrast was administered without complication. Automated exposure control was utilized for the study. A dose lowering technique was utilized adhering to the principles of ALARA. FINDINGS: Mild subcutaneous contusion of the right lower back is noted. The chest will be reported separately. Note is made of cardiomegaly. 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 No hemoperitoneum or pneumoperitoneum is present. There is no evidence for traumatic injury to the liver, spleen, adrenal glands, kidneys or pancreas. A right renal cyst is incidentally noted. Cortical calcification within the left kidney is noted. There is also a calcification within the right kidney. There is no hydronephrosis. Caliber and wall thickness of small and large bowel are normal. There is no evidence for a bowel obstruction. Left hip arthroplasty is noted. No acute lumbar spine or pelvic fractures identified. Prostate is mildly enlarged. There are gallstones within the gallbladder. There is no evidence for acute cholecystitis. IMPRESSION: No acute traumatic findings within the abdomen or pelvis. ACT 112: Negative or not required by law. Electronically signed by: Sanjeev Alexandra M.D. 03/22/2021 1:[address] 03/22/21 12:25 CT cervical spine wo con CT DOSE: 3165.79 mGy.cm CLINICAL HISTORY: 65 years-old Male with fall. Acute neck trauma status post fall COMPARISON: Head CT of same day TECHNIQUE: Multiple axial CT images of the cervical spine were obtained without contrast. A dose lowering technique was utilized adhering to the principles of ALARA. FINDINGS: Moderate degeneration at C1-C2. Mild multilevel intervertebral disc space narrowing with mild to moderate anterior endplate osteophytic spurring and moderate to severe multilevel facet arthrosis. Degenerative related bony fusion of the right C4-C5 facets. Partial bony fusion of the right C7-T1 facets. No prevertebral edema. No pneumothorax. Unremarkable soft tissues. IMPRESSION: No acute fracture or subluxation. ACT 112: Negative or not required by law. The above report was generated using voice recognition software. It may contain grammatical, syntax or spelling errors. Electronically signed by: Celestino Lux M.D. 03/22/2021 1:[address] 03/22/21 12:25 CT OF THE CHEST WITH IV CONTRAST CLINICAL HISTORY: Trauma. Right-sided chest pain. Patient on blood thinners. COMPARISON STUDY: No previous studies for comparison. TECHNIQUE: Following the IV administration of 94 mL of Optiray, CT of the thorax was performed from the thoracic inlet to the lung bases. Images are reviewed in the axial, sagittal, and coronal planes. IV contrast was administered without complication. A dose lowering technique was utilized adhering to the principles of ALARA. CT DOSE: FINDINGS: Thyroid: Imaged portions of the thyroid gland are normal in appearance. Thoracic aorta: The thoracic aorta is normal in course and caliber, noting standard 3-vessel arch anatomy. No aneurysm or dissection is seen. Pulmonary vasculature: The pulmonary trunk is normal in caliber. There are no central filling defects identified to suggest pulmonary embolus. Note that this examination was not protocoled for the evaluation of pulmonary emboli. HEART: The heart is mildly enlarged. There are extensive coronary calcifications. Lungs and pleural spaces: There are no pleural effusions. There is no pneumothorax. There is mild dependent atelectasis. There is mild respiratory motion artifact. Mediastinum: There is no evidence of pathologic mediastinal adenopathy. There is no evidence of mediastinal hematoma. Alia: There is no evidence of pathologic hilar lymphadenopathy Axilla: There is no evidence of pathologic axillary lymphadenopathy. Upper abdomen: Partially visualized upper abdominal viscera is within normal limits. Skeletal structures: There are postsurgical changes of midline sternotomy. There is subtle age-indeterminate deformities of the right third fourth and fifth ribs anterolaterally. IMPRESSION: 1. Subtle age-indeterminate deformities of the right third through fifth ribs anterolaterally 3. No evidence of pneumothorax 4. No evidence of pulmonary contusion 5. No evidence of mediastinal hematoma ACT 112: Negative or not required by law. Electronically signed by: John Landeros M.D. 03/22/2021 1:50 PM Chest X-Ray 03/22/21 12:25 XR chest 1V portable HISTORY: 65 years-old Male fall chest wall pain acute chest wall pain status post fall COMPARISON: Chest radiograph 02/15/2019 TECHNIQUE: Portable AP view the chest FINDINGS: Cardiac silhouette is enlarged. Prior median sternotomy. There is no pneumothorax, pleural effusion, airspace consolidation or overt pulmonary edema. Degenerative changes of the shoulders and spine. IMPRESSION: Cardiomegaly without acute process. ACT 112: Negative or not required by law. The above report was generated using voice recognition software. It may contain grammatical, syntax or spelling errors. Electronically signed by: Celestino Lux M.D. 03/22/2021 1:[address] 03/22/21 12:25 CT OF THE HEAD WITHOUT CONTRAST CLINICAL HISTORY: fall COMPARISON STUDY: No previous studies for comparison. TECHNIQUE: Helical axial images of the head were obtained without IV contrast. Automated exposure control was utilized for the study. A dose lowering technique was utilized adhering to the principles of ALARA. FINDINGS: No acute intracranial hemorrhage, midline shift or mass effect is present. The ventricular system is unremarkable. The basal cisterns are patent. No extra-axial collections are present. There are no findings to suggest acute dural sinus thrombosis or acute territorial infarct. No significant calvarial abnormalities are present. No calvarial fracture. Right sphenoid sinus is largely opacified. This is likely chronic. IMPRESSION: 1. No acute intracranial findings. 2. No calvarial fracture. 3. Largely opacified right sphenoid sinus. ACT 112: Negative or not required by law. Electronically signed by: Sanjeev Alexandra M.D. 03/22/2021 1:[address] 03/22/21 12:25 CT lumbar spine w con HISTORY: Low back pain. fall TECHNIQUE: Multiaxial CT images of the lumbar spine were performed and reformatted in the sagittal and coronal plane following the intravenous administration of contrast. COMPARISON STUDY: None. FINDINGS: No fractures or subluxation within the lumbar spine. Moderate facet degenerative changes throughout the lumbar spine. There is severe disc space narrowing at L5-S1. Remaining disc spaces are observed. The visualized sacrum is intact. Paravertebral soft tissues are unremarkable. Moderate central canal narrowing at L3-L4. Mild central canal narrowing at L4-L5. IMPRESSION: No fractures within the lumbar spine. ACT 112: Negative or not required by law. Electronically signed by: Seb Borges M.D. 03/22/2021 1:[address] 03/22/21 12:25 CT thoracic spine w con HISTORY: 65 years-old Male fall no acute chest and back pain status post trauma COMPARISON: CT chest, abdomen and pelvis studies of same day TECHNIQUE: Multiple axial CT images of the thoracic spine were obtained without the use of IV contrast. A dose lowering technique was used consistent with the principals of ALARA. FINDINGS: Multilevel anterior endplate bridging osteophytosis with mild to moderate facet arthrosis. Mild multilevel intervertebral disc space narrowing. Mild mid thoracic dextroscoliosis. No acute fracture or subluxation. No acute rib fracture. Unremarkable soft tissues. No paravertebral edema. IMPRESSION: No acute fracture. ACT 112: Negative or not required by law. The above report was generated using voice recognition software. It may contain grammatical, syntax or spelling errors. Electronically signed by: Celestino Lux M.D. 03/22/2021 1:55 PM ECG Additional Comments: ECG NSR, rate 82, inferior infarct,anterior infarct, not changed Code Status & VTE Plan Code Status Full code, but does not want prolonged life support VTE Prophylaxis Plan VTE Prophylaxis will be ordered: Yes PG Care Time/CCT Total # of Minutes Spent Total Time Spent with Patient: Total time spent is greater than 50% in coordination of care (as documented) at patient's floor/unit and/or counseling patient: Coding Level of Care Code 13936 Initial Inpt Care Lvl 3 Diagnoses BPH (benign prostatic hyperplasia) N40.0 Arteriosclerosis of carotid artery I65.29 CAD, multiple vessel I25.10 Dilated aortic root I77.810 Hyperlipidemia E78.5 Hypertension I10 Ischemic dilated cardiomyopathy I25.5; I42.0 Left ventricular apical thrombus I51.3 Obesity (BMI 30.0-34.9) E66.9 Fever R50.9 Back pain M54.9 Hypotension I95.9 DVT prophylaxis Z29.9 SIRS (systemic inflammatory response syndrome) R65.10 Contusion of back S20.229A Encounter type: initial encounter Laterality: unspecified laterality Rectal bleeding K62.5 (1) Contusion of back Encounter type: initial encounter Laterality: unspecified laterality Qualified Code(s): S20.229A - Contusion of unspecified back wall of thorax, initial encounter
[2021-03-22] MEDS ORDERED: DOXYCYCLINE HYCLATE 100 MG in DEXTROSE 5% 100 ML IV STA (15:03)
--- NOTE | 2021-03-22 17:17 | Electrocardiogram Report ---
Test Reason : Blood Pressure : / mmHG Vent. Rate : 082 BPM Atrial Rate : 082 BPM P-R Int : 194 ms QRS Dur : 094 ms QT Int : 360 ms P-R-T Axes : 041 001 -54 degrees QTc Int : 420 ms Normal sinus rhythm Inferior infarct (cited on or before 06-FEB-2011) Anterior infarct (cited on or before 21-MAY-2012) Abnormal ECG Confirmed by Qamar Almaraz ([id number]) on 03/22/2021 5:17:30 PM Referred By: REFERRED SELF Confirmed By:Aj Almaraz
[2021-03-22] MEDS: LACTATED RINGER'S 1,000 ML IV SCH (18:12)
[2021-03-22] MEDS ORDERED: ACETAMINOPHEN 325 MG TAB ONE (18:22)
[2021-03-22] MEDS ORDERED: ONDANSETRON INJ 2 MG/ML 2 ML VIAL IV PRN (19:10)
[2021-03-22] MEDS ORDERED: ACETAMINOPHEN 325 MG TAB PO PRN (19:10)
[2021-03-22] MEDS ORDERED: IBUPROFEN 600 MG TAB PO ONE (21:02)
[2021-03-22] MEDS: APIXABAN 5 MG TABLET PO SCH (21:38)
[2021-03-22] MEDS: CEFEPIME 2,000 MG in SYRINGE 0 ML IV SCH (22:00)
[2021-03-23] MEDS ORDERED: DOXYCYCLINE HYCLATE 100 MG in DEXTROSE 5% 100 ML IV SCH (04:00)
[2021-03-23] MEDS: LACTATED RINGER'S 1,000 ML IV SCH (05:50)
[2021-03-23] MEDS: CEFEPIME 2,000 MG in SYRINGE 0 ML IV SCH ×3 (05:51→21:15)
[2021-03-23 06:16] LABS: Basophils # (auto) 0.02 K/uL (0-0.2); Basophils % (auto) 0.4 %; Eosinophils # (auto) 0.01 K/uL (0-0.5); Eosinophils % (auto) 0.2 %; Hematocrit (blood only) 35.4 % (42-52); Hemoglobin 11.8 g/dL (14.0-18.0); Lymphocytes # (auto) 0.61 K/uL (1.2-3.4); Lymphocytes % (auto) 12.8 %; Mean Corpuscular Hemoglobin 31.1 pg (25-34); Mean Corpuscular Hgb Conc 33.3 g/dL (32-36); Mean Corpuscular Volume 93.2 fL (80-100); Mean Platelet Volume 10.6 fL (7.4-10.4); Monocytes # (auto) 0.35 K/uL (0.11-0.59); Monocytes % (auto) 7.3 %; Neutrophils # (auto) 3.79 K/uL (1.4-6.5); Neutrophils % (auto) 79.3 %; Platelet Count 155 K/uL (130-400); RDW Coefficient of Variation 13.6 % (11.5-14.5); RDW Standard Deviation 46.2 fL (36.4-46.3); White Blood Count 4.78 K/uL (4.8-10.8)
[2021-03-23 06:45] LABS: Albumin Level 2.6 gm/dl (3.4-5.0); BUN Creatinine Ratio 16.5 (10-20); Calcium 7.8 mg/dl (8.5-10.1); Creatinine Clr Calc Pharmacy 94.7 ml/min; Est GFR (African American) 91.3 ml/min; Est GFR (Non-African American) 78.8 ml/min; Magnesium 2.1 mg/dl (1.8-2.4); Potassium 4.1 mmol/L (3.5-5.1)
[2021-03-23 06:48] LABS: Bilirubin,Total 0.6 mg/dl (0.2-1); Globulin 2.7 gm/dl (2.5-4.0); Phosphorus 2.3 mg/dl (2.5-4.9); Total Protein 5.3 gm/dl (6.4-8.2)
[2021-03-23] MEDS ORDERED: POTASSIUM PHOS 3 MMOL/1 ML INFUSION IV STA (07:37)
[2021-03-23] MEDS ORDERED: POTASSIUM PHOSPHATE 9 MMOL in SODIUM CHLORIDE 0.9% 250 ML IV ONE (07:45)
[2021-03-23] MEDS: ROSUVASTATIN CALCIUM 20 MG TAB PO SCH (09:52)
[2021-03-23] MEDS: CHOLECALCIFEROL 1,000 UNITS 25 MCG TAB PO SCH (09:52)
[2021-03-23] MEDS: ASPIRIN 81 MG ECTAB PO SCH (09:53)
[2021-03-23] MEDS: TAMSULOSIN HCL 0.4 MG CAP PO SCH (09:53)
[2021-03-23] MEDS: CYANOCOBALAMIN 500 MCG TABLET (VITAMIN B-12) PO SCH (09:53)
[2021-03-23] MEDS: APIXABAN 5 MG TABLET PO SCH ×2 (09:53→21:15)
[2021-03-23 09:56] LABS: Echinocytes 1+
--- NOTE | 2021-03-23 14:02 | Hospitalist Progress Note ---
Date of Service March 23, 2021 Assessment & Plan (1) SIRS (systemic inflammatory response syndrome): Plan: Patient presents with fever and chills, hypotension, tachycardia, but with normal procalcitonin and lactate. No leukocytosis or leukopenia initially, but today with mild leukopenia Continued with high fever last night 03/22 Chest x-ray and chest CT negative for pneumonia. UA negative for UTI Covid-19 test is negative Do not suspect influenza in March and with high fevers, seems more likely to be bacterial or tick borne CT head does show mostly opacified right sphenoid sinus-could be secondary to acute sinusitis -Could also be a tickborne illness although Lyme is negative and Anaplasma smear is negative Could be acute prostatitis? UA could still be normal in setting of prostatitis No signs of unusual joint pains or abdominal pain. Does have cholelithiasis on CT but no abdominal tenderness and normal LFTs. Source of infection unclear at this point. 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 (2) Fever: Plan: As above (3) Hypotension: Plan: As above, now resolved with IVFs (4) Arteriosclerosis of carotid artery: Plan: Status post carotid endarterectomy Continue home aspirin and rosuvastatin (5) CAD, multiple vessel: Plan: Status post CABG Continue aspirin, statin Holding home beta-natividad for hypotension No ischemic changes on EKG and no chest pain Troponin here is negative (6) Dilated aortic root: Plan: Continue good blood pressure control as an outpatient (7) Hyperlipidemia: Plan: Continue statin (8) Hypertension: Plan: Holding all home antihypertensives as above for hypotension Restart when blood pressures are improved (9) Ischemic dilated cardiomyopathy: Plan: With and to moderately reduced LV function at 40-45% Holding home metoprolol Is not volume overloaded at this time Holding home losartan Daily weights, strict I's and O's (10) Left ventricular apical thrombus: Plan: With a history of such and remains on apixaban-patient reports he only takes apixaban once daily-counseled that this is meant to be twice daily drug Continue Eliquis Most recent echocardiogram in the fall 2019 shows that LV thrombus have resolved (11) Obesity (BMI 30.0-34.9): Plan: BMI 31.7 Needs weight loss (12) Back pain: Plan: Secondary to contusion from recent fall Tylenol or ibuprofen as needed No large hematoma seen on CT scan (13) BPH (benign prostatic hyperplasia): Plan: Continue home tamsulosin (14) Contusion of back: Plan: As above (15) Rectal bleeding: Plan: Very minimal Okay to continue apixaban Follow CBC (16) Hypophosphatemia: Plan: give 9 mmol K-Phos follow level in AM (17) DVT prophylaxis: Plan: Eliquis Disposition-continued stay on PCU, but if BCxs remain negative and still doing well tomorrow, can discharge Admission and Anticipated Discharge Date Admission Date: March 22, 2021 Anticipated date of discharge: 03/24/21 Subjective Feeling much better today. No further lightheadedness. Ambulated around the halls without lightheadedness, feels stronger. Denies headache, visual changes, sore throat, sinus congestion, rhinorrhea, CP, SOB. Only has a very slight cough. Had a high fever last night to 103.5. Is eating and drinking, no diarrhea, n o urinary symptoms. Tele with NSR, rates 90s Review of Systems Review of Systems: All systems reviewed & are unremarkable except as noted in HPI & below Physical Exam Constitutional: WD/WN, vitals as above Eyes: + anicteric sclerae ENMT: external ear and nose normal, oropharynx normal Neck: trachea midline, no thyromegaly Respiratory: normal respiratory effort, lungs clear to auscultation Cardiovascular: RRR, no murmur, no edema Chest (Breasts): Chest: normal inspection of chest Gastrointestinal (Abdomen): normal bowel sounds, soft, nontender, no hepatosplenomegaly Musculoskeletal: Extremities: extremities normal to inspection; no cyanosis and no clubbing Skin: no rashes, warm and dry Neurologic: moves all extremities and awake; no focal motor deficits Psychiatric: A+Ox3, euthymic affect Lymphatic: no lymphedema Results & Data Results & Data ([facility]) Vital Signs (Past 12 Hours) Vital Signs Temp Pulse Pulse Resp BP BP Pulse Ox 03/23/21 12:06 36.5 C 55 L 20 111/70 98 03/23/21 07:54 36.7 C 66 19 95/56 L 97 03/23/21 02:42 36.7 C 65 20 92/60 L 96 03/23/21 02:23 70 18 104/51 L 96 Laboratory Results 03/23/21 03/23/21 03/22/21 Range/Units 05:59 05:59 Unknown WBC 4.78 L (4.8-10.8) K/uL RBC 3.80 L (4.7-6.1) M/uL Hgb 11.8 L (14.0-18.0) g/dL Hct 35.4 L (42-52) % MCV 93.2 (80-100) fL MCH 31.1 (25-34) pg MCHC 33.3 (32-36) g/dL RDW Std Deviation 46.2 (36.4-46.3) fL RDW Coeff of Dayanna 13.6 (11.5-14.5) % Plt Count 155 (130-400) K/uL MPV 10.6 H (7.4-10.4) fL Immature Gran % (Auto) 0.0 % Neut % (Auto) 79.3 % Lymph % (Auto) 12.8 % [place] % (Auto) 7.3 % Eos % (Auto) 0.2 % Baso % (Auto) 0.4 % Neut # (Auto) 3.79 (1.4-6.5) K/uL Lymph # (Auto) 0.61 L (1.2-3.4) K/uL [place] # (Auto) 0.35 (0.11-0.59) K/uL Eos # (Auto) 0.01 (0-0.5) K/uL Baso # (Auto) 0.02 (0-0.2) K/uL Immature Gran # (Auto) 0.00 (0.00-0.02) K/uL Echinocytes 1+ Sodium 140 (136-145) mmol/L Potassium 4.1 (3.5-5.1) mmol/L Chloride 113 H (98-107) mmol/L Carbon Dioxide 27 (21-32) mmol/L Anion Gap 0 L (3-11) BUN 17 (7-18) mg/dl Creatinine 1.01 (0.6-1.4) mg/dl Est Cr Clr Drug Dosing 94.7 ml/min Est GFR ( Amer) 91.3 ml/min Est GFR (Non-Af Amer) 78.8 ml/min BUN/Creatinine Ratio 16.5 (10-20) Glucose 104 H (70-99) mg/dl Lactate (0.4-2.0) mmol/L Calcium 7.8 L (8.5-10.1) mg/dl Phosphorus 2.3 L (2.5-4.9) mg/dl Magnesium 2.1 (1.8-2.4) mg/dl Total Bilirubin 0.6 (0.2-1) mg/dl AST 21 (15-37) U/L ALT 30 (12-78) U/L Alkaline Phosphatase 50 (45-117) U/L Total Protein 5.3 L (6.4-8.2) gm/dl Albumin 2.6 L (3.4-5.0) gm/dl Globulin 2.7 (2.5-4.0) gm/dl Albumin/Globulin Ratio 1.0 (0.9-2) Procalcitonin (0-0.5) ng/ml Anaplasma Smear See Comment A. phagocytophilum DNA Lyme Disease IgG Ab (Negative) Lyme Disease IgM Ab (Negative) COVID-19 Eval Order SARS-CoV-2 (PCR) NEGATIVE (Negative) Blood Type Antibody Screen Crossmatch 03/22/21 03/22/21 03/22/21 Range/Units Unknown 15:23 15:23 WBC (4.8-10.8) K/uL RBC (4.7-6.1) M/uL Hgb (14.0-18.0) g/dL Hct (42-52) % MCV (80-100) fL MCH (25-34) pg MCHC (32-36) g/dL RDW Std Deviation (36.4-46.3) fL RDW Coeff of Dayanna (11.5-14.5) % Plt Count (130-400) K/uL MPV (7.4-10.4) fL Immature Gran % (Auto) % Neut % (Auto) % Lymph % (Auto) % [place] % (Auto) % Eos % (Auto) % Baso % (Auto) % Neut # (Auto) (1.4-6.5) K/uL Lymph # (Auto) (1.2-3.4) K/uL [place] # (Auto) (0.11-0.59) K/uL Eos # (Auto) (0-0.5) K/uL Baso # (Auto) (0-0.2) K/uL Immature Gran # (Auto) (0.00-0.02) K/uL Echinocytes Sodium (136-145) mmol/L Potassium (3.5-5.1) mmol/L Chloride (98-107) mmol/L Carbon Dioxide (21-32) mmol/L Anion Gap (3-11) BUN (7-18) mg/dl Creatinine (0.6-1.4) mg/dl Est Cr Clr Drug Dosing ml/min Est GFR ( Amer) ml/min Est GFR (Non-Af Amer) ml/min BUN/Creatinine Ratio (10-20) Glucose (70-99) mg/dl Lactate (0.4-2.0) mmol/L Calcium (8.5-10.1) mg/dl Phosphorus (2.5-4.9) mg/dl Magnesium (1.8-2.4) mg/dl Total Bilirubin (0.2-1) mg/dl AST (15-37) U/L ALT (12-78) U/L Alkaline Phosphatase (45-117) U/L Total Protein (6.4-8.2) gm/dl Albumin (3.4-5.0) gm/dl Globulin (2.5-4.0) gm/dl Albumin/Globulin Ratio (0.9-2) Procalcitonin (0-0.5) ng/ml Anaplasma Smear See Comment A. phagocytophilum DNA Pending Lyme Disease IgG Ab (Negative) Lyme Disease IgM Ab (Negative) COVID-19 Eval Order Covid19 at [facility] SARS-CoV-2 (PCR) (Negative) Blood Type Antibody Screen Crossmatch 03/22/21 03/22/21 03/22/21 Range/Units 14:23 14:23 12:39 WBC (4.8-10.8) K/uL RBC (4.7-6.1) M/uL Hgb (14.0-18.0) g/dL Hct (42-52) % MCV (80-100) fL MCH (25-34) pg MCHC (32-36) g/dL RDW Std Deviation (36.4-46.3) fL RDW Coeff of Dayanna (11.5-14.5) % Plt Count (130-400) K/uL MPV (7.4-10.4) fL Immature Gran % (Auto) % Neut % (Auto) % Lymph % (Auto) % [place] % (Auto) % Eos % (Auto) % Baso % (Auto) % Neut # (Auto) (1.4-6.5) K/uL Lymph # (Auto) (1.2-3.4) K/uL [place] # (Auto) (0.11-0.59) K/uL Eos # (Auto) (0-0.5) K/uL Baso # (Auto) (0-0.2) K/uL Immature Gran # (Auto) (0.00-0.02) K/uL Echinocytes Sodium (136-145) mmol/L Potassium (3.5-5.1) mmol/L Chloride (98-107) mmol/L Carbon Dioxide (21-32) mmol/L Anion Gap (3-11) BUN (7-18) mg/dl Creatinine (0.6-1.4) mg/dl Est Cr Clr Drug Dosing ml/min Est GFR ( Amer) ml/min Est GFR (Non-Af Amer) ml/min BUN/Creatinine Ratio (10-20) Glucose (70-99) mg/dl Lactate 1.0 (0.4-2.0) mmol/L Calcium (8.5-10.1) mg/dl Phosphorus (2.5-4.9) mg/dl Magnesium (1.8-2.4) mg/dl Total Bilirubin (0.2-1) mg/dl AST (15-37) U/L ALT (12-78) U/L Alkaline Phosphatase (45-117) U/L Total Protein (6.4-8.2) gm/dl Albumin (3.4-5.0) gm/dl Globulin (2.5-4.0) gm/dl Albumin/Globulin Ratio (0.9-2) Procalcitonin 0.35 (0-0.5) ng/ml Anaplasma Smear A. phagocytophilum DNA Lyme Disease IgG Ab (Negative) Lyme Disease IgM Ab (Negative) COVID-19 Eval Order SARS-CoV-2 (PCR) (Negative) Blood Type A Positive Antibody Screen NEGATIVE Crossmatch See Detail 03/22/21 Range/Units 12:39 WBC (4.8-10.8) K/uL RBC (4.7-6.1) M/uL Hgb (14.0-18.0) g/dL Hct (42-52) % MCV (80-100) fL MCH (25-34) pg MCHC (32-36) g/dL RDW Std Deviation (36.4-46.3) fL RDW Coeff of Dayanna (11.5-14.5) % Plt Count (130-400) K/uL MPV (7.4-10.4) fL Immature Gran % (Auto) % Neut % (Auto) % Lymph % (Auto) % [place] % (Auto) % Eos % (Auto) % Baso % (Auto) % Neut # (Auto) (1.4-6.5) K/uL Lymph # (Auto) (1.2-3.4) K/uL [place] # (Auto) (0.11-0.59) K/uL Eos # (Auto) (0-0.5) K/uL Baso # (Auto) (0-0.2) K/uL Immature Gran # (Auto) (0.00-0.02) K/uL Echinocytes Sodium (136-145) mmol/L Potassium (3.5-5.1) mmol/L Chloride (98-107) mmol/L Carbon Dioxide (21-32) mmol/L Anion Gap (3-11) BUN (7-18) mg/dl Creatinine (0.6-1.4) mg/dl Est Cr Clr Drug Dosing ml/min Est GFR ( Amer) ml/min Est GFR (Non-Af Amer) ml/min BUN/Creatinine Ratio (10-20) Glucose (70-99) mg/dl Lactate (0.4-2.0) mmol/L Calcium (8.5-10.1) mg/dl Phosphorus (2.5-4.9) mg/dl Magnesium (1.8-2.4) mg/dl Total Bilirubin (0.2-1) mg/dl AST (15-37) U/L ALT (12-78) U/L Alkaline Phosphatase (45-117) U/L Total Protein (6.4-8.2) gm/dl Albumin (3.4-5.0) gm/dl Globulin (2.5-4.0) gm/dl Albumin/Globulin Ratio (0.9-2) Procalcitonin (0-0.5) ng/ml Anaplasma Smear A. phagocytophilum DNA Lyme Disease IgG Ab Negative (Negative) Lyme Disease IgM Ab Negative (Negative) COVID-19 Eval Order SARS-CoV-2 (PCR) (Negative) Blood Type Antibody Screen Crossmatch PG Care Time/CCT Total # of Minutes Spent Total Time Spent with Patient: Total time spent is greater than 50% in coordination of care (as documented) at patient's floor/unit and/or counseling patient: Coding Level of Care Code 04288 Subseq Hosp Care Lvl 3 Diagnoses SIRS (systemic inflammatory response syndrome) R65.10 Fever R50.9 Hypotension I95.9 Arteriosclerosis of carotid artery I65.29 CAD, multiple vessel I25.10 Dilated aortic root I77.810 Hyperlipidemia E78.5 Hypertension I10 Ischemic dilated cardiomyopathy I25.5; I42.0 Left ventricular apical thrombus I51.3 Obesity (BMI 30.0-34.9) E66.9 Back pain M54.9 BPH (benign prostatic hyperplasia) N40.0 Contusion of back S20.229A Encounter type: initial encounter Laterality: unspecified laterality Rectal bleeding K62.5 DVT prophylaxis Z29.9 Hypophosphatemia E83.39 (1) Contusion of back Encounter type: initial encounter Laterality: unspecified laterality Qualified Code(s): S20.229A - Contusion of unspecified back wall of thorax, initial encounter
[2021-03-23] MEDS: DOXYCYCLINE HYCLATE 100 MG CAP PO SCH (21:14)
[2021-03-24] MEDS: CEFEPIME 2,000 MG in SYRINGE 0 ML IV SCH (05:46)
[2021-03-24] MEDS: APIXABAN 5 MG TABLET PO SCH (07:33)
[2021-03-24] MEDS: CYANOCOBALAMIN 500 MCG TABLET (VITAMIN B-12) PO SCH (07:34)
[2021-03-24] MEDS: ASPIRIN 81 MG ECTAB PO SCH (07:35)
[2021-03-24] MEDS: ROSUVASTATIN CALCIUM 20 MG TAB PO SCH (07:35)
[2021-03-24] MEDS: CHOLECALCIFEROL 1,000 UNITS 25 MCG TAB PO SCH (07:36)
[2021-03-24] MEDS: TAMSULOSIN HCL 0.4 MG CAP PO SCH (07:36)
[2021-03-24] MEDS: DOXYCYCLINE HYCLATE 100 MG CAP PO SCH (07:37)
[2021-03-24 07:41] LABS: Basophils # (auto) 0.03 K/uL (0-0.2); Basophils % (auto) 0.8 %; Eosinophils # (auto) 0.09 K/uL (0-0.5); Eosinophils % (auto) 2.3 %; Hematocrit (blood only) 40.6 % (42-52); Hemoglobin 13.3 g/dL (14.0-18.0); Immature Granulocytes # (auto) 0.01 K/uL (0.00-0.02); Immature Granulocytes % (auto) 0.3 %; Lymphocytes # (auto) 1.01 K/uL (1.2-3.4); Lymphocytes % (auto) 25.5 %; Mean Corpuscular Hemoglobin 30.6 pg (25-34); Mean Corpuscular Hgb Conc 32.8 g/dL (32-36); Mean Corpuscular Volume 93.5 fL (80-100); Mean Platelet Volume 11.9 fL (7.4-10.4); Monocytes # (auto) 0.71 K/uL (0.11-0.59); Monocytes % (auto) 17.9 %; Neutrophils # (auto) 2.11 K/uL (1.4-6.5); Neutrophils % (auto) 53.2 %; Platelet Count 191 K/uL (130-400); RDW Coefficient of Variation 13.2 % (11.5-14.5); RDW Standard Deviation 46.1 fL (36.4-46.3); Red Blood Count 4.34 M/uL (4.7-6.1); White Blood Count 3.96 K/uL (4.8-10.8)
[2021-03-24 08:31] LABS: Est GFR (African American) 109.1 ml/min; Est GFR (Non-African American) 94.1 ml/min; Potassium 3.7 mmol/L (3.5-5.1)
[2021-03-24 08:32] LABS: BUN Creatinine Ratio 14.2 (10-20); Calcium 8.2 mg/dl (8.5-10.1); Creatinine Clr Calc Pharmacy 115.3 ml/min; Magnesium 1.9 mg/dl (1.8-2.4)
[2021-03-24 08:33] LABS: Albumin Globulin Ratio 0.9 (0.9-2); Bilirubin,Total 0.4 mg/dl (0.2-1); Globulin 3.4 gm/dl (2.5-4.0); Total Protein 6.4 gm/dl (6.4-8.2)
[2021-03-24] MEDS ORDERED: POTASSIUM PHOS 3 MMOL/1 ML INFUSION IV STA (10:38)
[2021-03-24] MEDS ORDERED: POTASSIUM PHOSPHATE 9 MMOL in SODIUM CHLORIDE 0.9% 250 ML IV ONE (11:00)
--- NOTE | 2021-03-24 13:15 | Discharge Summary ---
Date of Service March 24, 2021 Admission HPI Per Admitting Provider This patient is a 65-year-old male with history of ischemic cardiomyopathy, dilated aortic root, multivessel CAD status post CABG and PCI, dyslipidemia, HTN, carotid artery stenosis status post left CEA, and LV apical thrombus on Eliquis who presents to the ER with lightheadedness as well as chills and sweats that started the morning of admission. 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 Has had very minimal bright red blood per rectum over the last 3 days on the toilet paper but denies any abdominal pain-of note, he has not taken his Eliquis for 3 days as he did not feel well. No dysuria, urgency, or frequency. Has mild bitemporal headache but no visual changes. Denies facial pain, tooth pain, sinus congestion or rhinorrhea. Denies sore throat. Does have a mild cough. Denies nausea or vomiting, no diarrhea or constipation, no abdominal pain. Denies any chest pain or shortness of breath. He denies any skin rashes or unusual joint pains over his usual arthritis pain. Denies any recent known bites. In the ER, he was found to be hypotensive with systolic blood pressures in the 80s as well as febrile. He had a very mild anemia with hemoglobin of 12.8 down from 14.91-month ago, normal WBC count and platelets. His CMP was unremarkable and his troponin was negative. A urinalysis was completely normal. Covid test was negative as was Lyme titer. Anaplasma smear was negative. A CT of the thoracic spine, lumbar spine, and cervical spine as well as the abdomen/pelvis, chest, and head were all performed. A contusion of the lower back was seen on CT a/p and gallstones but no evidence of acute cholecystitis. Chest neg for PNA. He was also noted on CT head to have a largely opacified sphenoid sinus on the right. He was treated with IV cefepime empirically for sepsis and doxycycline in case of tickborne illness empirically and given a total of 3 L of normal saline for his hypotension. Principal Diagnosis Acute sinusitis, fever, hypotension, Possible tick borne illness Discharge Exam Constitutional WD/WN, vitals as above Eyes PERRL, conjunctivae normal, anicteric sclerae + anicteric sclerae ENMT external ear and nose normal, oropharynx normal Neck trachea midline, no thyromegaly Respiratory normal respiratory effort, lungs clear to auscultation Cardiovascular RRR, no murmur, no edema Chest (Breasts) Chest: normal inspection of chest Gastrointestinal (Abdomen) normal bowel sounds, soft, nontender, no hepatosplenomegaly Musculoskeletal Extremities: extremities normal to inspection; no cyanosis and no clubbing Skin no rashes, warm and dry + ecchymosis (Small hematoma right lower back) Neurologic moves all extremities and awake; no focal motor deficits Psychiatric A+Ox3, euthymic affect Lymphatic no lymphedema Discharge Data Allergies Allergy/AdvReac Type Severity Reaction Status Date / Time Yigkrlz-Bxr-Aab Reductase Allergy Intermediate AFFECTS Verified 03/22/21 19:16 Inhibitor LIVER amoxicillin Allergy Mild "GETS Verified 03/22/21 19:16 INFECTIONS" Consultations 03/22/21 14:27 ED Decision to Admit Stat 03/22/21 15:19 ED Decision to Admit Stat Ordered Studies 03/22/21 12:25 CT abd pelvis IV con only Stat CT cervical spine wo con Stat CT chest diagnostic w con Stat CT head/brain wo con Stat CT lumbar spine w con Stat CT thoracic spine w con Stat Hospital Course (1) SIRS (systemic inflammatory response syndrome): Patient presents with fever and chills, hypotension, tachycardia, but with normal procalcitonin and lactate. No leukocytosis or leukopenia initially, but today with mild leukopenia Continued with high fever on night 7/14, but none since then Chest x-ray and chest CT negative for pneumonia. UA negative for UTI Covid-19 test is negative Do not suspect influenza in March and with high fevers, seems more likely to be bacterial or tick borne CT head does show mostly opacified right sphenoid sinus-could be secondary to acute sinusitis -Could also be a tickborne illness although Lyme is negative and Anaplasma smear is negative, Anaplasma PCR pending Could be acute prostatitis? UA could still be normal in setting of prostatitis No signs of unusual joint pains or abdominal pain. Does have cholelithiasis on CT but no abdominal tenderness and normal LFTs. Source of infection unclear at this point. BCxs NGTD at 48 hours Hypotension has now resolved received IVFs for volume resuscitation initially -ok to restart home antihypertensives on discharge at half the dose x 3 days, watch BPs at home -send raghu fabienne po antibiotics to cover for acute sinusitis with cefdinir as well as empiric doxycycline in case of tickborne illness -Follow-up in Anaplasma DNA PCR when available although this seems less likely given normal LFTs and normal platelets -Follow blood cultures-NGTD at time of dc -Tylenol or ibuprofen as needed for fever -If develops abdominal pain, would work-up further for acute cholecystitis -dc to home (2) Fever: As above (3) Hypotension: As above, now resolved with IVFs (4) Arteriosclerosis of carotid artery: Status post carotid endarterectomy Continue home aspirin and rosuvastatin (5) CAD, multiple vessel: Status post CABG Continue aspirin, statin Holding home beta-natividad 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 as above No ischemic changes on EKG and no chest pain Troponin here is negative (6) Dilated aortic root: Continue good blood pressure control as an outpatient (7) Hyperlipidemia: Continue statin (8) Hypertension: Holding all home antihypertensives as above for hypotension Restart when blood pressures are improved as above (9) Ischemic dilated cardiomyopathy: With and to moderately reduced LV function at 40-45% Holding home metoprolol Is not volume overloaded at this time restart home losartan (10) Left ventricular apical thrombus: With a history of such and remains on apixaban-patient reports he only takes apixaban once daily-counseled that this is meant to be twice daily drug Continue Eliquis 5mg bid on discharge Most recent echocardiogram in the fall 2019 shows that LV thrombus have resolved (11) Obesity (BMI 30.0-34.9): BMI 31.7 Needs weight loss (12) Back pain: Secondary to contusion from recent fall Tylenol or ibuprofen as needed No large hematoma seen on CT scan (13) BPH (benign prostatic hyperplasia): Continue home tamsulosin (14) Contusion of back: As above (15) Rectal bleeding: Very minimal prior to admission and now resolved Okay to continue apixaban Follow CBC (16) Hypophosphatemia: give 9 mmol K-Phos still mildly low on day of dc-replaced (17) DVT prophylaxis: Eliquis Disposition-dc to home, doing very well Total Time Total Time Spent Total Time Spent (In Minutes): 35 min Discharge Plan Discharge Items Patient Disposition: Home - Self-Care Reason For Visit: FEVER, HYPOTENSION Discharge Diagnosis: Fever, Acute sinusitis, Hypotension, Possible tick-borne infection Condition on Discharge: Good Activity: As commented below Lifting: Gradually increase as tolerated Bathing: No limitations Exercise/Sports: Gradually increase as tolerated Driving/Machine Use: No limitations Weightbearing: Full weightbearing Non-emergency contact: Primary Care Provider Call non-emergency contact if: you have any medication questions, your symptoms worsen, you have a fever and your temperature is above 101 Follow-up/Referrals: Mick Maguire, [Primary Care Provider] - Diet: Heart Healthy Addtl Attending Provider Instructions: Please continue taking the doxycycline for 8 more days in case of Anaplasmosis or Lyme disease. Please take the Cefdinir for the sinus infection for 8 more days. Follow up with your PCP within 1-2 weeks. If you have return of fevers/chills, low blood pressures, or any other acute concerns, please return to the hospital. Please take 1/2 tablet of each of your blood pressure medications (losartan, metoprolol) for the next 3 days and keep a record of your blood pressures twice a day. If your blood pressure goes over 130/85, then go ahead and increase your medications back to their usual doses (a full tablet). Pending Studies at Discharge: Yes Studies:: Anaplasma DNA PCR, Blood cultures Stand-Alone Forms: My [facility] Medications and DC Order Prescriptions: New doxycycline hyclate 100 mg Capsule 100 mg PO BID Qty: 16 RF: 0 cefdinir 300 mg capsule 300 mg PO BID Qty: 16 RF: 0 Continued tamsulosin 0.4 mg capsule 0.4 mg PO DAILY Qty: 90 RF: 3 losartan 25 mg tablet 25 mg PO QAM Qty: 90 RF: 3 metoprolol succinate 25 mg tablet extended release 24 hr 25 mg PO QAM Qty: 90 RF: 3 sildenafil (pulm.hypertension) 20 mg tablet 20 mg PO .COMPLEX PRN (Reason: sexual activity) Qty: 30 RF: 5 cyanocobalamin (vitamin B-12) [Vitamin B-12] 1,000 mcg tablet 1,000 mcg PO QAM Qty: 90 RF: 3 aspirin 81 mg Tablet,Delayed Release (Dr/Ec) 81 mg PO QAM RF: 0 nitroglycerin 0.4 mg tablet, sublingual 0.4 mg sublingual UD PRN (Reason: Chest Pain) RF: 0 cholecalciferol (vitamin D3) 25 mcg (1,000 unit) capsule 1,000 unit PO QAM RF: 0 rosuvastatin 40 mg tablet 40 mg PO QAM RF: 0 Changed Eliquis 5 mg tablet 5 mg PO BID Qty: 0 RF: 0 Discharge Orders: Discharge Order (Routine); Ordered 03/24/21 Ordered By: Jen Law Admission Data Admit Date/Time: 03/22/21 16:42 Attending Provider: Jen Law Admit Provider: Jen Law Primary Care Provider: Mick Maguire Other Providers: Chucky Beltran ; Jen Law Coding Level of Care Code D/C DAY MANAGEMENT >30 MINS Diagnoses SIRS (systemic inflammatory response syndrome) R65.10 Fever R50.9 Hypotension I95.9 Arteriosclerosis of carotid artery I65.29 CAD, multiple vessel I25.10 Dilated aortic root I77.810 Hyperlipidemia E78.5 Hypertension I10 Ischemic dilated cardiomyopathy I25.5; I42.0 Left ventricular apical thrombus I51.3 Obesity (BMI 30.0-34.9) E66.9 Back pain M54.9 BPH (benign prostatic hyperplasia) N40.0 Contusion of back S20.229A Encounter type: initial encounter Laterality: unspecified laterality Rectal bleeding K62.5 Hypophosphatemia E83.39 DVT prophylaxis Z29.9
== END 2021-03-24 14:14 | disposition home or self-care (01) ==
LOC: ED 11:27 → EDINP 16:42 → INTOOBSV 16:42 → 2S 03-23 02:23

== ENCOUNTER 2021-12-03 07:27 | Inpatient (IN) ==
[2021-12-03] MEDS ORDERED: ASPIRIN CHEW 324 MG PO STA (07:57)
[2021-12-03] MEDS ORDERED: NITROGLYCERIN SL 0.4 MG/TAB TAB SL PRN ×3 (07:57→13:59)
[2021-12-03 08:09] LABS: Basophils # (auto) 0.03 K/uL (0-0.2); Basophils % (auto) 0.4 %; Eosinophils # (auto) 0.18 K/uL (0-0.5); Eosinophils % (auto) 2.4 %; Hematocrit (blood only) 35.9 % (42-52); Hemoglobin 12.1 g/dL (14.0-18.0); Immature Granulocytes # (auto) 0.02 K/uL (0.00-0.02); Immature Granulocytes % (auto) 0.3 %; Lymphocytes # (auto) 1.95 K/uL (1.2-3.4); Lymphocytes % (auto) 26.3 %; Mean Corpuscular Hgb Conc 33.7 g/dL (32-36); Mean Corpuscular Volume 92.1 fL (80-100); Mean Platelet Volume 10.4 fL (7.4-10.4); Monocytes # (auto) 0.79 K/uL (0.11-0.59); Monocytes % (auto) 10.6 %; Neutrophils # (auto) 4.45 K/uL (1.4-6.5); Platelet Count 386 K/uL (130-400); RDW Coefficient of Variation 13.4 % (11.5-14.5); RDW Standard Deviation 44.7 fL (36.4-46.3); White Blood Count 7.42 K/uL (4.8-10.8)
--- NOTE | 2021-12-03 08:11 | Emergency Department Note ---
Impression & Plan ACS (acute coronary syndrome), CAD, multiple vessel, History of arthroplasty of right hip, Septic hip ED Provider Note CHIEF COMPLAINT: Chest pain HISTORY OF PRESENT ILLNESS: This 66-year-old male patient presents to the emergency department with complaints of an episode of substernal chest discomfort and sweating that began about an hour ago while sitting in his chair. He states he was awake and not active at the time. He does have an extensive history of CAD status post CABG and stent placement. Patient had a hip arthroplasty done in September of this year with subsequent infection. He is currently 1 week post washout and is on IV vancomycin at home via PICC line. He states his hip is feeling much improved but he has not seen the wound as it was recently dressed by orthopedic surgery. He is followed by [facility], Dr. Mcclelland and Dr. Silva. Patient denies any recent fevers, irritation or pain in the hip. He believes he is improving from that standpoint. This morning he took 1 baby aspirin and 1 nitroglycerin tablet and approximately 15 minutes later the pain have resolved. He denies any discomfort in the chest, shortness of breath or nausea at this time. REVIEW OF SYSTEMS: A review of systems was performed with positives and pertinent negatives listed in the history of present illness. 10 systems were reviewed and are otherwise negative. ALLERGIES: see below MEDICATIONS: see below PMH: see below SOCIAL HISTORY: see below DDx: Cardiac ischemia, aortic dissection, pulmonary embolism, pneumothorax, pneumonia, pericarditis, myocarditis, esophageal rupture, GERD, cholecystitis, pancreatitis, musculoskeletal, as well as other pathologies. PHYSICAL EXAM: Vital signs reviewed. General: Well-appearing 66 yo male, in no significant distress. HEENT: No scleral icterus, PERRLA, neck supple. Atraumatic. Cardiovascular: Regular rate and rhythm, no extra sounds. Pulmonary: Clear to auscultation bilaterally, normal work of breathing. Abdomen: Soft, nontender, nondistended, positive bowel sounds. Musculoskeletal: Atraumatic, no peripheral edema. Neurologic: Patient awake alert and oriented x 3, speech is clear Skin: Warm, dry, post operative incision to R hip posteriorly with dressing in place. Wound in well approximated with only minimal anterior erythema, no drainage. no tenderness. EMERGENCY DEPARTMENT COURSE/MDM: This patient was evaluated and appeared to be in no distress. IV access was obtained and laboratory work was drawn. Patient was placed on the hospital monitor and noted to be in a normal sinus rhythm. Patient's EKG reveals no significant changes acutely. There are plenty of chronic changes noted. Patient has a longstanding history of coronary artery disease status post CABG and stenting. Given his complicated course of infection hip arthroplasty and secondary infection/washout and IV antibiotics, pt will be evaluated by the hospitalist service for further management. Case was discussed with cardiology, Dr. Bolaños who agrees. I was notified by the charge nurse that the patient's troponin #2 had bumped to 14. Heparin drip was ordered. MONITORING: An order for cardiac monitoring was placed and the patient is noted to be in a NSR at 69 beats per minute. RADIOLOGY: see below EKG: EKG #1 at 7:36 AM reveals normal sinus rhythm with low voltage QRS at 68 bpm. Previous anterior septal infarct (Q waves) repolarization abnormality laterally/T wave inversion. No significant ST abnormality. QTC is 432. No PVC, no PAC. Baseline artifact impedes interpretation. EKG #2 at 7:38 AM reveals a normal sinus rhythm at 70 bpm with low voltage QRS. Previous anterior septal infarct again noted with T wave inversion in the lateral leads. QTC is 425. No PVC, no PAC. No significant ST abnormality appreciated. When compared to previous dated June 11, 2021, PVCs are no longer evident. No significant change otherwise. DISPOSITION: home I have personally spent 35 minutes of critical care time in the direct management of this patient. This was a life/limb threatening event. This 35 minutes is in excess of all separately billable procedures. Past Med/Surg History Medical History Arteriosclerosis of carotid artery BPH (benign prostatic hyperplasia) CAD, multiple vessel Dilated aortic root Hyperlipidemia Hypertension Ischemic dilated cardiomyopathy Left ventricular apical thrombus Leukopenia Lumbar compression fracture HX-NO SURGERY Myocardial Infarction Obesity (BMI 30.0-34.9) Osteoarthritis Surgical History H/O carotid endarte[place] [place] surgery H/O total hip arthroplasty History of cardiac cath History of cardiac cath History of colonoscopy History of coronary artery bypass graft Family History Mother Diabetes Gallbladder disease Hypertension Kidney stones Sister Anxiety Seizure Father Cardiac disorder Gallbladder disease Hypertension Kidney stones Leukemia Social History Smoking Status: Never smoker Second Hand Exposure: No; Do You Dip or Chew Tobacco: No; Tobacco Cessation Education Requested by Patient: No Hx Alcohol Use: Yes Alcohol type: beer Alcohol Intake Frequency: 4 or More x pe r/Week Alcohol Intake Frequency Comment: 1-2 beers per night Hx Substance Use: No Preferred Language: Vietnamese Communication Ability: Effective Visual Impairment: No Limitations Hearing Ability: Normal 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 Beliefs That Will Affect Care: None marital status: Current Living Situation: Alone current occupational status: employed Other Information That Helps Us Care for You: No Feels Safe at Home: Yes Safety Concerns: Feels Safe At This Time Childhood Exposure to Second-Hand Smoke: Yes caffeine: Yes Dental Care, Regularly: No Physical Activity Frequency: Daily Seatbelt Use: never Sunscreen Use: Yes Assistive Devices: Glasses Allergies Allergies Allergy/AdvReac Type Severity Reaction Status Date / Time Medyopb-XTF-ZvB Reductase Allergy Intermediate AFFECTS Verified 12/03/21 08:36 Inhibitor LIVER [Lcugham-Flh-Vtq Reductase Inhibitor] amoxicillin Allergy Mild "GETS Verified 12/03/21 08:36 INFECTIONS" Home Meds Home Medications Medication Instructions Recorded Confirmed cholecalciferol (vitamin D3) 25 1,000 unit PO QAM 01/01/21 12/03/21 mcg (1,000 unit) capsule rosuvastatin 40 mg tablet 40 mg PO QAM 01/01/21 12/03/21 multivitamin 1 tab PO QAM 06/11/21 12/03/21 cefadroxil 500 mg capsule 500 mg PO BID 12/03/21 12/03/21 ezetimibe 10 mg tablet (Zetia) 10 mg PO QAM 12/03/21 12/03/21 Previous Rx's Medication Instructions Recorded cyanocobalamin (vitamin B-12) 1,000 mcg PO QAM #90 tab 02/01/21 1,000 mcg tablet (Vitamin B-12) nitroglycerin 0.4 mg sublingual 0.4 mg SUBLINGUAL UD PRN #25 tab 06/19/21 tablet metoprolol succinate 50 mg 50 mg PO QAM #90 tab 08/18/21 tablet,extended release 24 hr aspirin 81 mg tablet,delayed 81 mg PO BID #0 tab 12/01/21 release Results & Data (ED) Vital Signs Vital Signs - 24 hr 12/03/21 07:29 12/03/21 07:36 12/03/21 08:00 Temperature 36.7 C Temperature Source Oral Pulse Rate 71 68 68 Pulse Rate from SpO2 Sensor Respiratory Rate 18 16 14 Blood Pressure 106/67 117/75 99/61 L Blood Pressure Mean 80 89 73 Pulse Oximetry 99 96 98 Oxygen Delivery Method Room Air Sepsis Recent Fever Within 48 Hours No Sepsis New/Unexplained Change in Mental Status No Sepsis Action Taken by Nursing No Action Required 12/03/21 08:30 12/03/21 09:00 12/03/21 10:00 Temperature Temperature Source Pulse Rate 67 63 70 Pulse Rate from SpO2 Sensor 69 Respiratory Rate 14 20 24 Blood Pressure 114/68 115/59 L 108/69 Blood Pressure Mean 83 77 82 Pulse Oximetry 99 98 97 Oxygen Delivery Method Sepsis Recent Fever Within 48 Hours Sepsis New/Unexplained Change in Mental Status Sepsis Action Taken by Nursing 12/03/21 10:30 12/03/21 11:00 Temperature Temperature Source Pulse Rate 71 69 Pulse Rate from SpO2 Sensor Respiratory Rate 19 16 Blood Pressure 104/67 125/72 Blood Pressure Mean 79 89 Pulse Oximetry 96 98 Oxygen Delivery Method Sepsis Recent Fever Within 48 Hours Sepsis New/Unexplained Change in Mental Status Sepsis Action Taken by [facility] Medications Current Medication List: was personally reviewed by me Laboratory Data Attestation: I reviewed the patient's lab results. Result diagrams: 12/03/21 07:42 12/03/21 07:42 Lab Results 12/03/21 12/03/21 12/03/21 Range/Units 07:42 07:42 08:11 WBC 7.42 (4.8-10.8) K/uL RBC 3.90 L (4.7-6.1) M/uL Hgb 12.1 L (14.0-18.0) g/dL Hct 35.9 L (42-52) % MCV 92.1 (80-100) fL MCH 31.0 (25-34) pg MCHC 33.7 (32-36) g/dL RDW Std Deviation 44.7 (36.4-46.3) fL RDW Coeff of Dayanna 13.4 (11.5-14.5) % Plt Count 386 (130-400) K/uL MPV 10.4 (7.4-10.4) fL Immature Gran % (Auto) 0.3 % Neut % (Auto) 60.0 % Lymph % (Auto) 26.3 % [place] % (Auto) 10.6 % Eos % (Auto) 2.4 % Baso % (Auto) 0.4 % Neut # (Auto) 4.45 (1.4-6.5) K/uL Lymph # (Auto) 1.95 (1.2-3.4) K/uL [place] # (Auto) 0.79 H (0.11-0.59) K/uL Eos # (Auto) 0.18 (0-0.5) K/uL Baso # (Auto) 0.03 (0-0.2) K/uL Immature Gran # (Auto) 0.02 (0.00-0.02) K/uL Sodium 136 (136-145) mmol/L Potassium 3.7 (3.5-5.1) mmol/L Chloride 104 (98-107) mmol/L Carbon Dioxide 25 (21-32) mmol/L Anion Gap 7 (3-11) BUN 16 (6-23) mg/dl Creatinine 0.79 (0.6-1.4) mg/dl Est Cr Clr Drug Dosing 119.7 ml/min Est GFR ( Amer) 110.0 ml/min Est GFR (Non-Af Amer) 94.9 ml/min BUN/Creatinine Ratio 20.3 H (10-20) Glucose 138 H (70-99(Fasting)) mg/dl Calcium 9.0 (8.5-10.1) mg/dl Total Bilirubin 0.5 (0.2-1.0) mg/dl AST 42 H (13-39) U/L ALT 87 H (7-52) U/L Alkaline Phosphatase 75 (34-104) U/L Troponin I 0.04 (0-0.04) ng/ml Total Protein 6.6 (6.0-8.3) gm/dl Albumin 3.5 (3.4-5.0) gm/dl Globulin 3.1 (2.5-4.0) gm/dl Albumin/Globulin Ratio 1.1 (0.9-2) Lipase 27 (11-82) U/L SARS-CoV-2, RNA, NAAT NEGATIVE (NEGATIVE) Administered Medications Heparin Sodium/Dextrose (Heparin Sodium/Dextrose) 25,000 units in 500 mls @ 20 mls/hr IV .Q24H DEBI; Protocol Stop: 01/02/22 13:29 Last Admin: 12/03/21 14:34 Dose: 1,000 units/hr, 20 mls/hr Documented by: [id number] Cosigned by: [id number] Discontinued Medications Aspirin (Aspirin Chew 324 Mg) 243 mg PO NOW STA Stop: 12/03/21 07:58 Last Admin: 12/03/21 08:03 Dose: 243 mg Documented by: [id number] Cefdinir (Cefdinir 300 Mg Cap) 300 mg PO ONE ONE Stop: 12/03/21 12:16 Last Admin: 12/03/21 12:49 Dose: 300 mg Documented by: [id number] Ezetimibe (Ezetimibe 10 Mg Tablet) 10 mg PO NOW STA Stop: 12/03/21 11:59 Last Admin: 12/03/21 12:49 Dose: 10 mg Documented by: [id number] Vancomycin HCl 2,000 mg/ (Sodium Chloride) 540 mls @ 200 mls/hr IV NOW ONE Stop: 12/03/21 14:56 Last Admin: 12/03/21 12:25 Dose: 200 mls/hr Documented by: [id number] Metoprolol Succinate (Metoprolol Succ 50mg Ext Rel Tab) 50 mg PO NOW STA Stop: 12/03/21 11:59 Last Admin: 12/03/21 12:49 Dose: 50 mg Documented by: [id number] Rosuvastatin Calcium (Rosuvastatin Calcium 20 Mg Tab) 40 mg PO NOW STA Stop: 12/03/21 11:59 Last Admin: 12/03/21 12:49 Dose: 40 mg Documented by: [id number] Imaging Data Radiologist's Impression: Chest X-Ray 12/03/21 07:58 XR chest 1V portable CLINICAL HISTORY: Atypical chest pain TECHNIQUE: Single frontal radiograph of the chest was obtained. Comparison: Comparison is made to chest one view 06/11/2021 FINDINGS: Median sternotomy wires are unchanged. There is a right PICC with the tip in the lower SVC. The cardiomediastinal silhouette is normal. The lungs are clear. No evidence of pleural effusion or pneumothorax. IMPRESSION: No acute chest disease. ACT 112: Negative or not required by law. Electronically signed by: Gonzales Peng M.D. 12/03/2021 8:31 AM Blood Pressure Blood Pressure Findings: Normal blood pressure Blood Pressure Disposition: did not require urgent referral Discharge Plan Visit Data Chief Complaint: Chest Pain Stated Complaint: CHEST PAIN ED Provider: Sophia Beaulieu Discharge Problem: ACS (acute coronary syndrome), CAD, multiple vessel, History of arthroplasty of right hip, Septic hip Patient Disposition: Admitted As Inpatient Discharge Instructions Interventions: ED Discharge Assessment Last Done: 12/03/21 13:30
[2021-12-03 08:30] LABS: Troponin I 0.04 ng/ml (0-0.04)
[2021-12-03 08:32] LABS: Albumin Globulin Ratio 1.1 (0.9-2); Albumin Level 3.5 gm/dl (3.4-5.0); BUN Creatinine Ratio 20.3 (10-20); Bilirubin,Total 0.5 mg/dl (0.2-1.0); Creatinine Clr Calc Pharmacy 119.7 ml/min; Est GFR (Non-African American) 94.9 ml/min; Globulin 3.1 gm/dl (2.5-4.0); Potassium 3.7 mmol/L (3.5-5.1); Total Protein 6.6 gm/dl (6.0-8.3)
--- NOTE | 2021-12-03 08:33 | XRay Report ---
XR chest 1V portable CLINICAL HISTORY: Atypical chest pain TECHNIQUE: Single frontal radiograph of the chest was obtained. Comparison: Comparison is made to chest one view 06/11/2021 FINDINGS: Median sternotomy wires are unchanged. There is a right PICC with the tip in the lower SVC. The cardi omediastinal silhouette is normal. The lungs are clear. No evidence of pleural effusion or pneumothor ax. IMPRESSION: No acute chest disease. ACT 112: Negative or not required by law. Electronically signed by: Gonzales Peng M.D. 12/03/2021 8:31 AM
--- NOTE | 2021-12-03 10:55 | Electrocardiogram Report ---
Test Reason : Blood Pressure : / mmHG Vent. Rate : 070 BPM Atrial Rate : 070 BPM P-R Int : 160 ms QRS Dur : 098 ms QT Int : 394 ms P-R-T Axes : 001 -04 -60 degrees QTc Int : 425 ms Normal sinus rhythm Low voltage QRS Cannot rule out Anteroseptal infarct (cited on or before 21-MAY-2012) Abnormal ECG When compared with ECG of 28-NOV-2021 16:58, Premature ventricular complexes are no longer Present Confirmed by Zander Bolaños ([id number]) on 12/03/2021 10:55:38 AM Referred By: ED Confirmed By:Zander Bolaños
--- NOTE | 2021-12-03 11:17 | History & Physical Report ---
Date of Service December 03, 2021 Assessment & Plan (1) Chest pain: Plan: 66 yo M with extensive cardiac hx including CAD s/p Stent, CABG, HTN, HLD, ischemic dilated cardiomyopathy (EF 40%) recently discharged from hospital stay for infection of prosthetic right hip joint, admitted for chest pain workup. High risk chest pain with elevated troponin - received 81 mg ASA at home and another 325 in ER - initial troponin 0.04 -> 14, trend Q6H - EKG initially with mild ST segment changes but largely unchanged from prior. Daily EKG and EKG with chest pain - Heparin low dose WITHOUT bolus - nitro for chest pain - cardiology consult, follows with Dr. Marin Extensive CAD/CABG hx - continue home metoprolol, zetia, rosuvastatin Prosthetic R Hip infection - continue cefadroxil 500 mg PO BID - continue vancomycin DVT ppx: heparin drip FEN/GI: cardiac heart healthy diet Bowel regimen: NA Code Status: FUll COde Dispo: Med/Tele (2) CAD, multiple vessel: (3) Ischemic dilated cardiomyopathy: (4) Hyperlipidemia: (5) Infection of prosthetic total hip joint: (6) Hypertension: (7) Peripheral artery disease: History of Present Illness Primary Care Provider: Mick Maguire, DO 66 yo M with CAD, hx CABG with occlusion s/p stent placement, ischemic dilated cardiomyopathy, HLD, HTN, PAD, obesity, recently admitted for infection of pros thetic hip joint, in ER today for episode of chest pain. Describes episode at 5:30 this morning where he was sitting in a chair after walking from the bathroom and felt tightness in his chest that was associated with some sweating as well. Denies any SOB or radiation of pain at the time. He says the episode went away on its own in 10-15 minutes. He was able to take a baby aspirin and nitro tab by the time the pain had already started to fade. He denies any other episodes of chest pain while sitting or while exerting himself. ER Course: ASA 325, CXR, EKG, initial labwork prior to calling hospitalist for admission. He denies any fevers, chills, night sweats, trouble breathing, calf pain. He has been able to take all of his medications at home. Allergies Allergy/AdvReac Type Severity Reaction Status Date / Time Bohpbmy-ALO-CnC Reductase Allergy Intermediate AFFECTS Verified 12/03/21 08:36 Inhibitor LIVER [Tlzinic-Ckl-Smk Reductase Inhibitor] amoxicillin Allergy Mild "GETS Verified 12/03/21 08:36 INFECTIONS" Home Medications Medication Instructions Recorded Confirmed Type cholecalciferol (vitamin D3) 25 1,000 unit PO QAM 01/01/21 12/03/21 History mcg (1,000 unit) capsule rosuvastatin 40 mg tablet 40 mg PO QAM 01/01/21 12/03/21 History cyanocobalamin (vitamin B-12) 1,000 mcg PO QAM #90 tab 02/01/21 12/03/21 Rx 1,000 mcg tablet (Vitamin B-12) multivitamin 1 tab PO QAM 06/11/21 12/03/21 History nitroglycerin 0.4 mg sublingual 0.4 mg SUBLINGUAL UD PRN #25 tab 06/19/21 12/03/21 Rx tablet metoprolol succinate 50 mg 50 mg PO QAM #90 tab 08/18/21 12/03/21 Rx tablet,extended release 24 hr aspirin 81 mg tablet,delayed 81 mg PO BID #0 tab 12/01/21 12/03/21 Rx release cefadroxil 500 mg capsule 500 mg PO BID 12/03/21 12/03/21 History ezetimibe 10 mg tablet (Zetia) 10 mg PO QAM 12/03/21 12/03/21 History Past Med/Surg History Medical History Arteriosclerosis of carotid artery BPH (benign prostatic hyperplasia) CAD, multiple vessel Dilated aortic root Hyperlipidemia Hypertension Ischemic dilated cardiomyopathy Left ventricular apical thrombus Leukopenia Lumbar compression fracture HX-NO SURGERY Myocardial Infarction Obesity (BMI 30.0-34.9) Osteoarthritis Surgical History H/O carotid endarterectomy RIGHT-C H/O knee surgery H/O total hip arthroplasty History of cardiac cath History of cardiac cath History of colonoscopy History of coronary artery bypass graft Family History Mother Diabetes Gallbladder disease Hypertension Kidney stones Sister Anxiety Seizure Father Cardiac disorder Gallbladder disease Hypertension Kidney stones Leukemia Social History (Reviewed 11/26/21 @ 20:28 by KELLI Sam Smoking Status: Never smoker Second Hand Exposure: No; Do You Dip or Chew Tobacco: No; Tobacco Cessation Education Requested by Patient: No Hx Alcohol Use: Yes Alcohol type: beer Alcohol Intake Frequency: 4 or More x per/Week Alcohol Intake Frequency Comment: 1-2 beers per night Hx Substance Use: No Preferred Language: Mauritanian Communication Ability: Effective Visual Impairment: No Limitations Hearing Ability: Normal [employer] Required: No Beliefs That Will Affect Care: None marital status: Current Living Situation: Alone current occupational status: employed Other Information That Helps Us Care for You: No Feels Safe at Home: Yes Safety Concerns: Feels Safe At This Time Childhood Exposure to Second-Hand Smoke: Yes caffeine: Yes Dental Care, Regularly: No Physical Activity Frequency: Daily Seatbelt Use: never Sunscreen Use: Yes Assistive Devices: Glasses Review of Systems Review of Systems: All systems reviewed & are unremarkable except as noted in Subjective Physical Exam Physical Exam: Constitutional: obese, in no apparent distress, sitting comfortably in bed. Eyes: EOMI, pupils equal and reactive bilaterally, no scleral icterus Cardiac: RRR, no murmurs, gallops or rubs. Normal S1, S2 Pulm: CTA BL, no wheezes, rhonchi, crackles or rubs, moving air well throughout both lungs Abd: soft, nontender, nondistended, normal bowel sounds, no rebound or guarding Extremities: 2+ peripheral pulses, no edema, no calf pain Neuro: no focal deficits, moving all 4 limbs, A&Ox3 Results & Data Results & Data ([facility]) Vital Signs (Past 12 Hours) Vital Signs Temp Pulse Resp BP Pulse Ox 12/03/21 10:30 71 19 104/67 96 12/03/21 10:00 70 24 108/69 97 12/03/21 09:00 63 20 115/59 L 98 12/03/21 08:30 67 14 114/68 99 12/03/21 08:00 68 14 99/61 L 98 12/03/21 07:36 68 16 117/75 96 12/03/21 07:29 36.7 C 71 18 106/67 99 Laboratory Results Laboratory Results WBC 7.42 K/uL (4.8-10.8) 12/03/21 07:42 RBC 3.90 M/uL (4.7-6.1) L 12/03/21 07:42 Hgb 12.1 g/dL (14.0-18.0) L 12/03/21 07:42 Hct 35.9 % (42-52) L 12/03/21 07:42 MCV 92.1 fL (80-100) 12/03/21 07:42 MCH 31.0 pg (25-34) 12/03/21 07:42 MCHC 33.7 g/dL (32-36) 12/03/21 07:42 RDW Std Deviation 44.7 fL (36.4-46.3) 12/03/21 07:42 RDW Coeff of Dayanna 13.4 % (11.5-14.5) 12/03/21 07:42 Plt Count 386 K/uL (130-400) 12/03/21 07:42 MPV 10.4 fL (7.4-10.4) 12/03/21 07:42 Immature Gran % (Auto) 0.3 % 12/03/21 07:42 Neut % (Auto) 60.0 % 12/03/21 07:42 Lymph % (Auto) 26.3 % 12/03/21 07:42 Falls % (Auto) 10.6 % 12/03/21 07:42 Eos % (Auto) 2.4 % 12/03/21 07:42 Baso % (Auto) 0.4 % 12/03/21 07:42 Neut # (Auto) 4.45 K/uL (1.4-6.5) 12/03/21 07:42 Lymph # (Auto) 1.95 K/uL (1.2-3.4) 12/03/21 07:42 Falls # (Auto) 0.79 K/uL (0.11-0.59) H 12/03/21 07:42 Eos # (Auto) 0.18 K/uL (0-0.5) 12/03/21 07:42 Baso # (Auto) 0.03 K/uL (0-0.2) 12/03/21 07:42 Immature Gran # (Auto) 0.02 K/uL (0.00-0.02) 12/03/21 07:42 Sodium 136 mmol/L (136-145) 12/03/21 07:42 Potassium 3.7 mmol/L (3.5-5.1) 12/03/21 07:42 Chloride 104 mmol/L (98-107) 12/03/21 07:42 Carbon Dioxide 25 mmol/L (21-32) 12/03/21 07:42 Anion Gap 7 (3-11) 12/03/21 07:42 BUN 16 mg/dl (6-23) 12/03/21 07:42 Creatinine 0.79 mg/dl (0.6-1.4) 12/03/21 07:42 Est Cr Clr Drug Dosing 119.7 ml/min 12/03/21 07:42 Est GFR ( Amer) 110.0 ml/min 12/03/21 07:42 Est GFR (Non-Af Amer) 94.9 ml/min 12/03/21 07:42 BUN/Creatinine Ratio 20.3 (10-20) H 12/03/21 07:42 Glucose 138 mg/dl (70-99(Fasting)) H 12/03/21 07:42 Calcium 9.0 mg/dl (8.5-10.1) 12/03/21 07:42 Total Bilirubin 0.5 mg/dl (0.2-1.0) 12/03/21 07:42 AST 42 U/L (13-39) H 12/03/21 07:42 ALT 87 U/L (7-52) H 12/03/21 07:42 Alkaline Phosphatase 75 U/L (34-104) 12/03/21 07:42 Troponin I 14.58 ng/ml (0-0.04) H* 12/03/21 12:22 Total Protein 6.6 gm/dl (6.0-8.3) 12/03/21 07:42 Albumin 3.5 gm/dl (3.4-5.0) 12/03/21 07:42 Globulin 3.1 gm/dl (2.5-4.0) 12/03/21 07:42 Albumin/Globulin Ratio 1.1 (0.9-2) 12/03/21 07:42 Lipase 27 U/L (11-82) 12/03/21 07:42 Vitamin B12 644 pg/ml (180-914) 12/03/21 12:22 SARS-CoV-2, RNA, NAAT NEGATIVE (NEGATIVE) 12/03/21 08:11 Impressions Chest X-Ray 12/03/21 07:58 XR chest 1V portable CLINICAL HISTORY: Atypical chest pain TECHNIQUE: Single frontal radiograph of the chest was obtained. Comparison: Comparison is made to chest one view 06/11/2021 FINDINGS: Median sternotomy wires are unchanged. There is a right PICC with the tip in the lower SVC. The cardiomediastinal silhouette is normal. The lungs are clear. No evidence of pleural effusion or pneumothorax. IMPRESSION: No acute chest disease. ACT 112: Negative or not required by law. Electronically signed by: Gonzales Peng M.D. 12/03/2021 8:31 AM Supervising Physician Co-Signing Physician Notes I also saw the patient confirmed will portion of the history and physical examination. Agree with impression and plan as noted in the resident documentation. 66-year-old male who was discharged in the hospital earlier this week on home vancomycin for a right prostatic total hip joint infection (status post right hip arthroplasty on 10/09/2021). Patient explains that earlier this morning had a 10 to 15-minute episode of chest tightness with associated diaphoresis, but no shortness of breath. The patient took an aspirin and called 911. The patient s ubsequently took a nitroglycerin; prior to taking nitroglycerin, the patient states that the chest pain had nearly completely resolved; subsequent to the nitroglycerin, it resolved completely. The patient's daughter arrived at his house and since the ambulance had not yet arrived, she elected to drive him to the hospital herself. He had no recurrence of the chest pain after the initial episode. His initial troponin was normal at 0.4; his EKG was unchanged when compared to previous from 11/28/2021. We were consulted for evaluation for admission. The patient initially wanted to return home but with the help of his daughter's encouragement, consented to admission. His second troponin showed a marked elevation of 14.58. Heparin drip was started, no bolus. Case was discussed with cardiology. Patient has a history of multivessel coronary disease status post CABG and PCI (LMCA into proximal LAD; mid LAD). His bypass grafts are noted to have occluded. Has residual distal LAD stenosis and an occluded RCA filled via collaterals. Exam 125/72, 70, 16, 36.6, 90% room air Alert and oriented. No distress appreciated. He talks in full and complete sentences without stopping. HEENT unremarkable. Mucous membranes appear moist Neck is supple. Trachea is midline. There is no JVD appreciated. Heart regular rate and rhythm. Soft systolic murmur heard best over the right sternal border. Heart sounds are somewhat distant Lungs clear with nonlabored respirations Abdomen soft and nontender Extremities without edema. There is no calf tenderness upon palpation. Data Hemoglobin 12.1, WBC 7.42. Sodium 136, potassium 3.7, BUN 16, creatinine 0.79. AST 42, ALT 87. Troponin I 0.04, 14.58. COVID-19 screen negative Chest x-ray done in the emergency department shows sternotomy wires, right PICC with the tip in the lower SVC. No evidence of consolidation, pneumothorax, or effusion Echocardiogram dated 11/14/2021 shows EF of 40%. Severe hypokinesis to akinesis of the inferior wall and apex. Otherwise, global hypokinesis. Sclerotic aortic valve without stenosis. Assessment and Plan NSTEMI Heparin infusion without bolus Consult cardiology EKG with recurrent chest pain and in a.m. Trend troponin Continue home dose beta-natividad, ezetimibe and rosuvastatin Ischemic cardiomyopathy with reduced left ventricular function He appears euvolemic on exam today Not clear if he had been on an PIOTR or ARB previously, but previous notes indicate that they have not been started due to episodes of hypotension in the past. In fact, he had been off his beta-natividad for short period of time due to episodic hypotension. He is tolerating his current beta-natividad dose at present. Prosthetic right hip infection Continuing vancomycin Mildly elevated LFTs Very mild, uncertain etiology Trend Resident Activity Tracking Resident Involvement: Resident Care Provided Care Provided: Adult Hospital Medicine
[2021-12-03] MEDS ORDERED: ROSUVASTATIN CALCIUM 20 MG TAB PO STA (11:58)
[2021-12-03] MEDS ORDERED: EZETIMIBE 10 MG TABLET PO STA (11:58)
[2021-12-03] MEDS ORDERED: METOPROLOL SUCC 50MG EXT REL TAB PO STA (11:58)
[2021-12-03] MEDS ORDERED: VANCOMYCIN HCL 2,000 MG in SODIUM CHLORIDE 0.9% 500 ML IV ONE (12:15)
[2021-12-03] MEDS ORDERED: CEFDINIR 300 MG CAP PO ONE (12:15)
[2021-12-03] MEDS ORDERED: Heparin IV Adult Wt-Based Low-Dose WITH Bolus Protocol STA (13:23)
[2021-12-03] MEDS ORDERED: Heparin IV Adult Wt-Based Low-Dose *NO* Bolus Protocol IV SCH (13:29)
[2021-12-03] MEDS ORDERED: HEPARIN SOD (PORCINE) 1000 UNIT/ML IV ONE ×2 (13:38→20:58)
[2021-12-03] MEDS ORDERED: HEPARIN SODIUM/DEXTROSE 25,000 UNITS/500 ML BAG IV SCH (13:45)
[2021-12-03] MEDS ORDERED: ONDANSETRON INJ 2 MG/ML 2 ML VIAL IV PRN (13:59)
[2021-12-03] MEDS ORDERED: VANCOMYCIN CONSULT ACTIVE PRN (14:19)
[2021-12-03 14:27] LABS: INR 1.1 (0.9-1.1); Partial Thromboplastin Ratio 0.9; Partial Thromboplastin Time 23.6 Seconds (21.0-31.0); Prothrombin Time 11.6 Seconds (9.0-12.0)
[2021-12-03] MEDS: HEPARIN SODIUM/DEXTROSE 25,000 UNITS/500 ML BAG IV SCH (14:34)
--- NOTE | 2021-12-03 15:49 | Pharmacy Report ---
Pharmacy Vanc AUC Short Note - Date of Service December 03, 2021 - Assessment & Plan Assessment 66 year old M receiving IV vancomycin for treatment of right hip infection s/p hip arthroplasty Day # 8 of antimicrobial therapy. * Presents to ED with complaint of episode of substernal chest discomfort and sweating that began while seated. Has extensive HX of CAD, s/p CABG and stent placement. * Had hip arthroplasty in 09/2021 with subsequent infection. On IV Vancomycin at home via PICC line. Patient states hip is feeling much improved. * Will continue with previous inpatient regimen. Unable to determine outpatient dose. Will obtain trough level in am. Plan Vancomycin * AUC/GERI is the preferred PK/PD target for vancomycin * AUC guided dosing is effective and associated with decreased risk of nephrotoxicity compared to traditional trough targets * Trough level of 12.8 mcg/mL is predicted to achieve target AUC/GERI of 400-600 mg/L.hr and may be associated with a 8 % risk of nephrotoxicity * Dose of 2000 mg IV every 12 hours * Trough or random level ordered for: 12/04/21 Pharmacy will continue to follow and will adjust dose/frequency as necessary. Thank you.
[2021-12-03] MEDS: ACETAMINOPHEN 325 MG TAB PO PRN (20:06)
[2021-12-03 20:42] LABS: Partial Thromboplastin Time 27.6 Seconds (21.0-31.0)
[2021-12-03] MEDS ORDERED: NON-FORMULARY MEDICATION (Cefadroxil 500 mg capsule) PO SCH (21:00)
[2021-12-03] MEDS: ASPIRIN 81 MG ECTAB PO SCH (21:02)
[2021-12-04] MEDS: VANCOMYCIN HCL 2,000 MG in SODIUM CHLORIDE 0.9% 500 ML IV SCH ×2 (00:22→19:35)
[2021-12-04 01:33] LABS: Partial Thromboplastin Time 54.1 Seconds (21.0-31.0)
[2021-12-04 04:19] LABS: Partial Thromboplastin Ratio 1.6; Partial Thromboplastin Time 42.8 Seconds (21.0-31.0)
[2021-12-04] MEDS: ACETAMINOPHEN 325 MG TAB PO PRN (06:17)
[2021-12-04 06:25] LABS: Basophils # (auto) 0.03 K/uL (0-0.2); Basophils % (auto) 0.5 %; Eosinophils # (auto) 0.23 K/uL (0-0.5); Eosinophils % (auto) 4.1 %; Hematocrit (blood only) 32.8 % (42-52); Hemoglobin 10.9 g/dL (14.0-18.0); Immature Granulocytes # (auto) 0.02 K/uL (0.00-0.02); Immature Granulocytes % (auto) 0.4 %; Lymphocytes # (auto) 1.37 K/uL (1.2-3.4); Lymphocytes % (auto) 24.7 %; Mean Corpuscular Hemoglobin 30.6 pg (25-34); Mean Corpuscular Hgb Conc 33.2 g/dL (32-36); Mean Corpuscular Volume 92.1 fL (80-100); Monocytes # (auto) 0.59 K/uL (0.11-0.59); Monocytes % (auto) 10.6 %; Neutrophils # (auto) 3.31 K/uL (1.4-6.5); Neutrophils % (auto) 59.7 %; Platelet Count 329 K/uL (130-400); RDW Coefficient of Variation 13.2 % (11.5-14.5); RDW Standard Deviation 44.7 fL (36.4-46.3); Red Blood Count 3.56 M/uL (4.7-6.1); White Blood Count 5.55 K/uL (4.8-10.8)
--- NOTE | 2021-12-04 06:39 | Hospitalist Progress Note ---
Date of Service December 04, 2021 Assessment & Plan (1) Chest pain: Plan: 66 yo M with extensive cardiac hx including CAD s/p Stent, CABG, HTN, HLD, ischemic dilated cardiomyopathy (EF 40%) recently discharged from hospital stay for infection of prosthetic right hip joint, admitted for chest pain workup. High risk chest pain with elevated troponin - received 81 mg ASA at home and another 325 in ER - initial troponin 0.04 -> 14, trend Q6H - EKG initially with mild ST segment changes but largely unchanged from prior. Daily EKG and EKG with chest pain - Heparin low dose WITHOUT bolus - nitro for chest pain - cardiology consult, follows with Dr. Marin Extensive CAD/CABG hx - continue home metoprolol, zetia, rosuvastatin Prosthetic R Hip infection - continue cefadroxil 500 mg PO BID - continue vancomycin DVT ppx: heparin drip FEN/GI: cardiac heart healthy diet Bowel regimen: NA Code Status: FUll COde Dispo: Med/Tele (2) CAD, multiple vessel: (3) Ischemic dilated cardiomyopathy: (4) Hyperlipidemia: (5) Infection of prosthetic total hip joint: (6) Hypertension: (7) Peripheral artery disease: Admission and Anticipated Discharge Date Admission Date: December 03, 2021 Results & Data Results & Data ([facility]) Vital Signs (Past 12 Hours) Vital Signs Temp Pulse Pulse Resp BP Pulse Ox 12/04/21 03:39 36.6 C 68 18 104/68 95 12/03/21 22:37 36.9 C 66 18 104/62 95 12/03/21 22:18 61 12/03/21 19:15 37.2 C 76 18 121/69 96
[2021-12-04 07:05] LABS: BUN Creatinine Ratio 18.2 (10-20); Calcium 8.3 mg/dl (8.5-10.1); Creatinine Clr Calc Pharmacy 122.8 ml/min; Est GFR (African American) 111.2 ml/min; Est GFR (Non-African American) 95.9 ml/min; Potassium 3.8 mmol/L (3.5-5.1)
[2021-12-04 07:28] LABS: Troponin I 6.39 ng/ml (0-0.04)
[2021-12-04] MEDS: METOPROLOL SUCC 50MG EXT REL TAB PO SCH (08:54)
[2021-12-04] MEDS: ASPIRIN 81 MG ECTAB PO SCH ×2 (08:54→21:18)
[2021-12-04] MEDS: CYANOCOBALAMIN (B-12) 500 MCG TABLET PO SCH (08:55)
[2021-12-04] MEDS: EZETIMIBE 10 MG TABLET PO SCH (08:55)
[2021-12-04] MEDS: CHOLECALCIFEROL 1,000 UNITS 25 MCG TAB PO SCH (08:55)
[2021-12-04] MEDS: MULTIVITAMIN TAB PO SCH (08:55)
[2021-12-04] MEDS ORDERED: ROSUVASTATIN CALCIUM 20 MG TAB PO SCH (09:00)
--- NOTE | 2021-12-04 09:32 | Medical Student Progress Note ---
Date of Service December 04, 2021 Assessment & Plan (1) Chest pain: Plan: 66 yo M with extensive cardiac hx including CAD s/p Stent, CABG, HTN, HLD, ischemic dilated cardiomyopathy (EF 40%) recently discharged from hospital stay for infection of prosthetic right hip joint, admitted for chest pain workup. NSTEMI - received 81 mg ASA at home and another 325 in ER; continue ASA 81 mg BID - initial troponin 0.04 -> 14 -> 6.4 - EKG initially with mild ST segment changes but largely unchanged from prior. PRN EKG with chest pain - Heparin low dose WITHOUT bolus - nitro for chest pain - cardiology consult, follows with Dr. Marin - Catheterization on 12-04-2021: 2 LAD stents placed and 1 left circumflex Extensive CAD/CABG hx - continue home metoprolol, zetia, rosuvastatin Prosthetic R Hip infection - ASA 81 mg BID as stated above for ppx - continue vancomycin DVT ppx: heparin drip FEN/GI: NPO Bowel regimen: NA Code Status: FUll COde Dispo: Med/Tele Admission and Anticipated Discharge Date Admission Date: December 03, 2021 Supervising Attestation I personally examined the patient and verified all will points of history and exam, discussed case, and agree with decision making with A [place] MS2 feeling fine post cath. d/w cardiology input greatly appreciated vitals noted nad heent nc at mmm breathing unlabored no accessory muscles good effort skin no rashes no pallor or icterus NSTEMI/severe CAD - stented, med management. septic hip - conitnue IV abx. Subjective Pt feels okay with no acute events overnight. Review of Systems Constitutional: no fever and no sweats Cardiovascular: no chest pain, no chest pain at rest and no chest pain with activity Physical Exam Constitutional: WD/WN, vitals as above Respiratory: normal respiratory effort, lungs clear to auscultation Cardiovascular: RRR, no murmur, no edema Skin: no rashes, warm and dry Results & Data ([facility]) Vital Signs (Past 12 Hours) Vital Signs Temp Pulse Pulse Pulse Resp BP Pulse Ox 12/04/21 07:37 36.8 C 73 12 130/70 98 12/04/21 07:18 69 12/04/21 03:39 36.6 C 68 18 104/68 95 12/03/21 22:37 36.9 C 66 18 104/62 95 12/03/21 22:18 61
[2021-12-04] MEDS ORDERED: HEPARIN (PORCINE) 1000 UNIT/ML 10 ML (CATH LAB USE ONLY) ONE ×2 (11:30→14:54)
[2021-12-04] MEDS ORDERED: niCARdipine HCL INJ 2.5 MG/ML 10 ML AMP ONE (11:30)
[2021-12-04] MEDS ORDERED: VANCOMYCIN TROUGH ONE (11:30)
[2021-12-04] MEDS ORDERED: MIDAZOLAM HCL 1 MG/ML 2ML VIAL ONE ×4 (11:30→15:44)
[2021-12-04] MEDS ORDERED: NITROGLYCERIN/D5W 100MCG/ML 20ML SYR ONE (11:31)
[2021-12-04] MEDS ORDERED: fentaNYL citrate 100 MCG/2 ML VIAL ONE ×4 (11:31→15:44)
--- NOTE | 2021-12-04 11:46 | XCELERA ---
[id number]
--- NOTE | 2021-12-04 12:28 | Electrocardiogram Report ---
Test Reason : Blood Pressure : / mmHG Vent. Rate : 067 BPM Atrial Rate : 067 BPM P-R Int : 162 ms QRS Dur : 096 ms QT Int : 400 ms P-R-T Axes : 021 017 244 degrees QTc Int : 422 ms Normal sinus rhythm Septal infarct (cited on or before 21-MAY-2012) T wave abnormality, consider inferior ischemia Abnormal ECG When compared with ECG of 03-DEC-2021 07:38, Questionable change in initial forces of Anterior leads Nonspecific T wave abnormality, worse in Lateral leads Confirmed by Zander Bolaños ([id number]) on 12/04/2021 12:27:48 PM Referred By: REFERRED SELF Confirmed By:Zander Bolaños
[2021-12-04] MEDS ORDERED: HEPARIN 25000 UNIT/500 ML D5W IV ONE (12:58)
--- NOTE | 2021-12-04 13:13 | Pre Anesthesia Assessment ---
Date of Service December 04, 2021 Pre Sedation Assessment Vital Signs Temp Pulse Pulse Pulse Resp BP Pulse Ox 12/04/21 11:25 64 20 124/69 98 12/04/21 07:37 98.2 F 73 12 130/70 98 12/04/21 07:18 69 12/04/21 03:39 97.9 F 68 18 104/68 95 12/03/21 22:37 98.4 F 66 18 104/62 95 12/03/21 22:18 61 12/03/21 19:15 99.0 F 76 18 121/69 96 12/03/21 14:20 76 12/03/21 14:03 70 12/03/21 13:51 97.9 F 66 16 125/72 99 Cardiovascular RRR, no murmur, no edema Respiratory normal respiratory effort, lungs clear to auscultation Pre-Sedation Airway Assessment Smoking Status: Never smoker Hx Sleep Apnea: No Hx Difficult Intubation: No Short, Thick Neck: Yes Thyromental Distance: > or= 3.5 Finger Breadths Oral Cavity: + WNL Mallampati Class: III ASA: ASA4 NPO Status Date of Last Intake of Fluids: 12/04/21 Time of Last Intake of Fluids: 07:30 Date of Last Intake of Solid Food: 12/04/21 Time of Last Intake of Solid Foods: 07:30 Procedure Planning Contraindications for Sedation: none Current Medications Reviewed: Yes Notes The planned sedation has been discussed with the patient. Informed Consent was obtained. I have identified the patient, determined the appropriateness of sedation and have assessed the patient immediately prior to the procedure. All medicine(s) and interventions are by my order.
[2021-12-04] MEDS ORDERED: LIDOCAINE 1% LOCAL 20 ML VIAL ONE ×2 (13:26→16:04)
--- NOTE | 2021-12-04 14:50 | Cardiology Consultation ---
Date of Consultation December 04, 2021 Assessment & Plan (1) Non-ST elevation (NSTEMI) myocardial infarction: (2) CAD, multiple vessel: (3) S/P coronary artery stent placement: (4) History of coronary artery bypass graft: (5) Dilated aortic root: (6) Hypertension: (7) Hyperlipidemia: ASSESSMENT/PLAN: 1. NSTEMI: Discussed the diagnosis with patient this morning. No further angina. Recommend cardiac catheterization. Risks and benefits were discussed with him in detail. He was made aware that CT surgery is not available at this facility. He was agreeable to proceed with coronary angiography and PCI, if deemed appropriate. Continue aspirin 81 mg daily. Continue heparin drip. Continue high-intensity statin therapy and beta-natividad. Consider low-dose PIOTR- inhibitor. Cardiac rehab. 2. CAD s/p CABG and PCI (LM into prox LAD; mid LAD): Bypass grafts have occluded. Had residual distal LAD stenosis and wire was not able to be advanced according to records. Occluded RCA filled via collaterals. No further angina. Continue medical therapy as outlined. 3. Ischemic cardiomyopathy: Appears euvolemic. Continue metoprolol succinate. Recommend initiation of low-dose lisinopril during this hospital stay if no contraindication. Had been on ARB therapy in the past but it was discontinued during hospital admission in the past year with febrile infection and hypotension. Medical therapy has not been aggressively titrated due to intermittent hypotension in the past. Has not qualified for ICD for primary prevention. 4. Hypertension: Blood pressure well controlled. Recommendations as above. 5. Dyslipidemia: Continue high-intensity statin therapy. Zetia was added on 08/18/2021 visit. If LDL not at goal, less than 70, would then consider PCSK9 inhibitor in place of Zetia. 6. Dilated aortic root: Asymptomatic. Followed over time. Avoid heavy lifting for which the Valsalva maneuver is required. Annual surveillance. Blood pressure control. 7. LV apical thrombus: Has history of apical thrombus and was treated with anticoagulation therapy which has since been discontinued. 8. Disposition: Cardiac catheterization planned for today. His daughter, Balbir, was updated via telephone as per his request. I will be away from the hospital tomorrow. Please call on-call Cardiology with questions or concerns. Patient care communicated with Dr. Elizabeth of the primary hospitalist service. Highly complex medical issues. Thank you for allowing me to participate in the care of your patient. Please call for any other questions or concerns. Sincerely, Nimesh Marin M.D. History of Present Illness Reason for Consultation: Unstable Angina Requesting Physician: Dr. Serrano Attending Physician: Jhonny Elizabeth DO History of Present Illness Mr. Rojas is a 66-year-old gentleman with a history significant for multivessel CAD status post CABG and PCI, dyslipidemia, hypertension, ischemic cardiomyopathy, LV apical thrombus, carotid artery stenosis status post left carotid endarterectomy. In approximately 2004, he underwent mid LAD PCI. Then in 2010, shortly after RCA [place], he underwent coronary angiography and subsequent CABG x2. In 2013, he had angina and underwent myocardial perfusion study, which was abnormal. This led to cardiac catheterization demonstrating occluded bypass grafts and severe LMCA/ostial LAD CAD, as well as documented occluded RCA. According to records, CT surgery consultation was sought but eventually, PCI was performed, after he was deemed a poor redo surgical candidate. He has had the following studies/procedures: 1. LAD PCI 2004 at [facility] [place]. 2. CABG x2 02/20/2011 at [facility] [place]: Off pump bypass grafting. Free MCFARLANE to LAD. SVG to OM. The MCFARLANE was used as a free graft due to slow mammary flow. Postoperatively LV EF was noted to be 40-44% with a moderate-sized apical wall motion abnormality (dyskinesis). 3. Cardiac catheterization 01/29/2014 at [facility] [place]: LM CA 60%. Ostial LAD 90%. Distal LAD small in size with 80% distal LAD stenosis. Dominant RCA. Proximal RCA 100%. Right to right and [id number] collaterals. Circumflex without significant CAD. MCFARLANE to LAD 100%. SVG to OM1 100% (not visualized on aortography and no competitive flow in normal circumflex system). 4. PCI of LM CA/ostial LAD at [facility] [place] 03/09/2014: Drug-eluting stent 3 x 22 mm resolute integrity placed in distal LM CA into LAD and post dilated with 3.5 mm balloon in the LAD segment. Left main segment post dilated with a 4 mm balloon. IVS was performed and then a 5 mm balloon was inflated in the proximal stent. A soft wire was attempted to crossed severe distal LAD stenosis, without success. 5. Echo 07/11/2015: Limited study. EF 40%. Mildly reduced LV systolic function. Akinetic apex. No apical thrombus. Akinetic inferior wall. Mid to distal lateral and inferolateral sullivan severely hypokinetic. Hypokinesis of the anteroseptal wall. Type 1 diastolic dysfunction. Dilated RV with moderately reduced systolic function. Aortic root 4.9 cm. Calcified aortic. 6. Echo 12/11/2016: Mildly dilated LV with moderately reduced systolic function. EF 35-40%. Akinesis of the distal septum, anterior, lateral, and inferior wall segments, including the apex. Otherwise, global hypokinesis. Type 1 diastolic dysfunction. Mildly dilated RV with mildly reduced systolic function. No significant valvular abnormalities. Aortic root 4.7 cm. 7. Echo 04/18/2018: Mildly to moderately dilated LV with moderately reduced systolic function. EF 35-40%. Akinesis of the distal inferoseptal, distal anterior, distal anterolateral, and distal inferior wall segments, including the apex. Otherwise, global hypokinesis. No LVH. Type 1 diastolic dysfunction. Mildly dilated RV. Mild MR. Aortic root 4.7 cm. 8. Echo 06/05/2019: Mildly dilated LV with moderately reduced systolic function. EF 35-40%. Aneurysmal apex. Otherwise, global hypokinesis with sparing of the base to mid anterior and base to mid anterolateral wall segments. Mild LVH. Pedunculated apical thrombus, approximately 2 x 1.5 cm. Mildly dilated RV with mildly reduced systolic function. Mild left atrial dilation. Aortic root 4.7 cm. Sclerotic aortic valve. 9. Echo 07/15/2020: Mildly dilated LV with mildly to moderately reduced systolic function. EF 40-45%. Akinesis inferior wall. Aneurysmal apex. Mild LVH. No apical thrombus. Mildly dilated RV with normal systolic function. Mild left atrial dilation. Sclerotic aortic valve. Aortic root 4.7 cm. 10. Echo 11/14/2021 [place] pg: Mildly dilated LV. Moderately reduced systolic function. EF 40%. Severe hypokinesis to akinesis of the inferior wall and apex. Otherwise, global hypokinesis. Mildly dilated RV with normal systolic function. Mild left atrial dilation. Sclerotic aortic valve. RVSP 22. Aortic root 4.7 cm. Patient was seen this morning at 8:30 a.m.. He was admitted on 12/03/2021 for chest discomfort concerning for unstable angina. After walking from the back to room at home, he developed chest pressure across his chest. There was no radiation of the pain and no associated shortness of breath. There was associated diaphoresis. He does not recall having this pain before. He believes the entire episode lasted a few minutes. He called for an ambulance but after waiting several minutes, his daughter arrived and took him to the hospital. He has been chest pain-free throughout the hospital stay. His initial troponin was 0.04 but then increased and peaked at 16.37 before trending downward. His initial ECG on 12/03/2021 at 7:30 a.m. demonstrated sinus rhythm at 70 beats per minute with probable old anterior infarct and possible inferior infarct. He recently was discharged from [facility] on 12/01/2021 after being admitted on 11/26/2021 for right prosthetic hip joint infection. He underwent right hip wound irrigation and debridement and right hip head and liner exchange on 11/29/2021 and was discharged home with a PICC line for prolonged antibiotic therapy. At the time of our visit this morning at approximately 8:30 a.m., he was chest pain-free and denies any shortness of breath. He felt back to his baseline. Review of systems:As above. Review of systems otherwise negative/unremarkable. Family history:No known premature CAD. Father had myocardial infarction in his 60s. Social history:Denies tobacco or drug abuse. Drinks up to 1-2 beers per day. He is and then she has since . He lives with his fiancee in [place]. Four children. 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 He was alone in his hospital room. Allergies Allergy/AdvReac Type Severity Reaction Status Date / Time Ogwdoaf-BCP-IzV Reductase Allergy Intermediate AFFECTS Verified 12/03/21 08:36 Inhibitor LIVER [Zstasis-Pzm-Gjl Reductase Inhibitor] amoxicillin Allergy Mild "GETS Verified 12/03/21 08:36 INFECTIONS" Home Medications Medication Instructions Recorded Confirmed Type cholecalciferol (vitamin D3) 25 1,000 unit PO QAM 01/01/21 12/03/21 History mcg (1,000 unit) capsule rosuvastatin 40 mg tablet 40 mg PO QAM 01/01/21 12/03/21 History cyanocobalamin (vitamin B-12) 1,000 mcg PO QAM #90 tab 02/01/21 12/03/21 Rx 1,000 mcg tablet (Vitamin B-12) multivitamin 1 tab PO QAM 06/11/21 12/03/21 History nitroglycerin 0.4 mg sublingual 0.4 mg SUBLINGUAL UD PRN #25 tab 06/19/21 12/03/21 Rx tablet metoprolol succinate 50 mg 50 mg PO QAM #90 tab 08/18/21 12/03/21 Rx tablet,extended release 24 hr aspirin 81 mg tablet,delayed 81 mg PO BID #0 tab 12/01/21 12/03/21 Rx release cefadroxil 500 mg capsule 500 mg PO BID 12/03/21 12/03/21 History ezetimibe 10 mg tablet (Zetia) 10 mg PO QAM 12/03/21 12/03/21 History Patient History Medical History Arteriosclerosis of carotid artery BPH (benign prostatic hyperplasia) CAD, multiple vessel Dilated aortic root Hyperlipidemia Hypertension Ischemic dilated cardiomyopathy Left ventricular apical thrombus Leukopenia Lumbar compression fracture HX-NO SURGERY Myocardial Infarction Obesity (BMI 30.0-34.9) Osteoarthritis Surgical History (Updated 12/04/21 @ 14:42 by Ibrahima Marin MD) H/O carotid endarterectomy RIGHT-C H/O knee surgery H/O total hip arthroplasty History of cardiac cath History of cardiac cath History of colonoscopy History of coronary artery bypass graft S/P coronary artery stent placement Family History Mother Diabetes Gallbladder disease Hypertension Kidney stones Sister Anxiety Seizure Father Cardiac disorder Gallbladder disease Hypertension Kidney stones Leukemia Social History Smoking Status: Never smoker Second Hand Exposure: No; Do You Dip or Chew Tobacco: No; Tobacco Cessation Education Requested by Patient: No Hx Alcohol Use: Yes Alcohol type: beer Alcohol Intake Frequency: 4 or More x per/Week Alcohol Intake Frequency Comment: 1-2 beers per night Hx Substance Use: No Preferred Language: Nicaraguan Communication Ability: Effective Visual Impairment: No Limitations Hearing Ability: Normal Manager Call Center Required: No Beliefs That Will Affect Care: None marital status: Current Living Situation: Alone current occupational status: employed Other Information That Helps Us Care for You: No Feels Safe at Home: Yes Safety Concerns: Feels Safe At This Time Childhood Exposure to Second-Hand Smoke: Yes caffeine: Yes Dental Care, Regularly: No Physical Activity Frequency: Daily Seatbelt Use: never Sunscreen Use: Yes Assistive Devices: None Physical Exam Physical Exam: Gen.: No acute distress. Alert and oriented. HEENT: Anicteric sclera. Neck: No JVD. No bruit. Normal carotid upstrokes bilaterally. Cardiac: PMI was nonpalpable. No ventricular heave. Regular, without ectopy. Distant heart sounds. No audible murmurs, rubs, or gallops. Pulmonary: Clear to auscultation bilaterally without wheezes, rales, or rhonchi. Abdomen: Soft, nontender, nondistended, with normoactive bowel sounds. No bruits noted. Extremities: 2+ radial pulses bilaterally. Trace bilateral lower extremity edema. No cyanosis. Psychiatric: Affect appears appropriate. Results & Data ([facility]) Vital Signs (Past 12 Hours) Vital Signs Temp Pulse Pulse Pulse Resp BP Pulse Ox 12/04/21 11:25 64 20 124/69 98 12/04/21 07:37 36.8 C 73 12 130/70 98 12/04/21 07:18 69 12/04/21 03:39 36.6 C 68 18 104/68 95 Laboratory Results Laboratory Results - last 24 hr 12/03/21 12/03/21 12/04/21 17:56 20:24 00:44 WBC RBC Hgb Hct MCV MCH MCHC RDW Std Deviation RDW Coeff of Dayanna Plt Count MPV Immature Gran % (Auto) Neut % (Auto) Lymph % (Auto) Cannon % (Auto) Eos % (Auto) Baso % (Auto) Neut # (Auto) Lymph # (Auto) Cannon # (Auto) Eos # (Auto) Baso # (Auto) Immature Gran # (Auto) APTT 27.6 PTT Ratio 1.0 Activ Coag Time Kaolin Sodium Potassium Chloride Carbon Dioxide Anion Gap BUN Creatinine Est Cr Clr Drug Dosing Est GFR ( Amer) Est GFR (Non-Af Amer) BUN/Creatinine Ratio Glucose Calcium Troponin I 16.37 H* 9.77 H* 12/04/21 12/04/21 12/04/21 00:44 03:50 06:08 WBC RBC Hgb Hct MCV MCH MCHC RDW Std Deviation RDW Coeff of Dayanna Plt Count MPV Immature Gran % (Auto) Neut % (Auto) Lymph % (Auto) Cannon % (Auto) Eos % (Auto) Baso % (Auto) Neut # (Auto) Lymph # (Auto) Cannon # (Auto) Eos # (Auto) Baso # (Auto) Immature Gran # (Auto) APTT 54.1 H* 42.8 H PTT Ratio 2.0 1.6 Activ Coag Time Kaolin Sodium 138 Potassium 3.8 Chloride 106 Carbon Dioxide 27 Anion Gap 5 BUN 14 Creatinine 0.77 Est Cr Clr Drug Dosing 122.8 Est GFR ( Amer) 111.2 Est GFR (Non-Af Amer) 95.9 BUN/Creatinine Ratio 18.2 Glucose 107 H Calcium 8.3 L Troponin I 6.39 H* 12/04/21 12/04/21 12/04/21 06:08 14:51 15:08 WBC 5.55 RBC 3.56 L Hgb 10.9 L Hct 32.8 L MCV 92.1 MCH 30.6 MCHC 33.2 RDW Std Deviation 44.7 RDW Coeff of Dayanna 13.2 Plt Count 329 MPV 10.0 Immature Gran % (Auto) 0.4 Neut % (Auto) 59.7 Lymph % (Auto) 24.7 Cannon % (Auto) 10.6 Eos % (Auto) 4.1 Baso % (Auto) 0.5 Neut # (Auto) 3.31 Lymph # (Auto) 1.37 Cannon # (Auto) 0.59 Eos # (Auto) 0.23 Baso # (Auto) 0.03 Immature Gran # (Auto) 0.02 APTT PTT Ratio Activ Coag Time Kaolin 196 H 220 H Sodium Potassium Chloride Carbon Dioxide Anion Gap BUN Creatinine Est Cr Clr Drug Dosing Est GFR ( Amer) Est GFR (Non-Af Amer) BUN/Creatinine Ratio Glucose Calcium Troponin I 12/04/21 16:14 WBC RBC Hgb Hct MCV MCH MCHC RDW Std Deviation RDW Coeff of Dayanna Plt Count MPV Immature Gran % (Auto) Neut % (Auto) Lymph % (Auto) Cannon % (Auto) Eos % (Auto) Baso % (Auto) Neut # (Auto) Lymph # (Auto) Cannon # (Auto) Eos # (Auto) Baso # (Auto) Immature Gran # (Auto) APTT PTT Ratio Activ Coag Time Kaolin 273 H Sodium Potassium Chloride Carbon Dioxide Anion Gap BUN Creatinine Est Cr Clr Drug Dosing Est GFR ( Amer) Est GFR (Non-Af Amer) BUN/Creatinine Ratio Glucose Calcium Troponin I Diagnostic Findings Telemetry personally reviewed: Sinus rhythm. No arrhythmia. ECG personally reviewed as noted above in HPI. Medications Administered Current Inpatient Medications Acetaminophen (Acetaminophen 325 Mg Tab) 650 mg PO Q4H PRN PRN Reason: Pain or Fever Stop: 01/02/22 13:58 Last Admin: 12/04/21 06:17 Dose: 650 mg Documented by: Acetaminophen/Codeine Phosphate (Acetaminophen W/Codeine #3 1 Tab) 1 tab PO Q4H PRN PRN Reason: Pain Stop: 01/03/22 17:07 Aspirin (Aspirin 81 Mg Ectab) 81 mg PO BID [facility] Stop: 01/02/22 20:59 Last Admin: 12/04/21 08:54 Dose: 81 mg Documented by: Cyanocobalamin (Cyanocobalamin (B-12) 500 Mcg Tablet) [facility] Stop: 01/03/22 08:59 Last Admin: 12/04/21 08:55 Dose: 1,000 mcg Documented by: Ezetimibe (Ezetimibe 10 Mg Tablet) 10 mg PO QAM [facility] Stop: 01/03/22 08:59 Last Admin: 12/04/21 08:55 Dose: 10 mg Documented by: Heparin Sodium (Beef Lung) (Heparin 10 Unit/Ml 5 Ml Flush) 5 ml FLUSH PRN PRN PRN Reason: Flush Stop: 01/02/22 14:38 Heparin Sodium/Dextrose (Heparin Sodium/Dextrose) 25,000 units in 500 mls @ 27 mls/hr IV .[id number] [facility]; Protocol Stop: 01/02/22 13:29 Last Admin: 12/04/21 17:08 Dose: Not Given Documented by: Vancomycin HCl 2,000 mg/ (Sodium Chloride) 540 mls @ 200 mls/hr IV Q12H [facility] Stop: 01/15/22 00:00 Last Infusion: 12/04/21 03:15 Dose: Infused Documented by: Sodium Chloride (Nss 1000ml) 1,000 mls @ 100 mls/hr IV .Q10H [facility] Stop: 12/05/21 00:29 Eptifibatide (Integrilin) 75 mg in 100 mls @ 17.2 mls/hr IV .Q5H49M [facility]; Protocol Stop: 12/04/21 23:00 Last Admin: 12/04/21 17:19 Dose: 2 mcg/kg/min, 17.2 mls/hr Documented by: Metoprolol Succinate (Metoprolol Succ 50mg Ext Rel Tab) 50 mg PO [facility] Stop: 01/03/22 08:59 Last Admin: 12/04/21 08:54 Dose: 50 mg Documented by: Miscellaneous Information (Vancomycin Consult Active) 1 ea N/A UD PRN PRN Reason: Consult Stop: 01/02/22 14:18 Multivitamins (Multivitamin Tab) 1 tab PO [facility] Stop: 01/03/22 08:59 Last Admin: 12/04/21 08:55 Dose: 1 tab Documented by: Nitroglycerin (Nitroglycerin Sl 0.4 Mg/Tab Tab) 0.4 mg SL Q5M PRN PRN Reason: Chest Pain Stop: 01/02/22 13:58 Ondansetron HCl (Ondansetron Inj 2 Mg/Ml 2 Ml Vial) 4 mg IV Q6H PRN PRN Reason: Nausea Stop: 01/02/22 13:58 Rosuvastatin Calcium (Rosuvastatin Calcium 10 Mg Tab) 40 mg PO [facility] Stop: 01/04/22 08:59 Ticagrelor (Ticagrelor 90 Mg Tab) 90 mg PO BID [facility] Stop: 01/04/22 08:59 Vitamin D (Cholecalciferol 1,000 Units 25 Mcg Tab) 1,000 units PO [facility] Stop: 01/03/22 08:59 Last Admin: 12/04/21 08:55 Dose: 1,000 units Documented by: PG Care Time/CCT Total # of Minutes Spent Total Time Spent with Patient: Total time spent is greater than 50% in coordination of care (as documented) at patient's floor/unit and/or counseling patient: Coding Level of Care Code 86691 Inpt Consult Level 5 Diagnoses Non-ST elevation (NSTEMI) myocardial infarction I21.4 CAD, multiple vessel I25.10 S/P coronary artery stent placement Z95.5 History of coronary artery bypass graft Z95.1 Dilated aortic root I77.810 Hypertension I10 Hyperlipidemia E78.5
[2021-12-04] MEDS ORDERED: EPTIFIBATIDE 2 MG/ML 10 ML VIAL (CATH LAB USE ONLY) IV ONE (15:39)
[2021-12-04] MEDS ORDERED: DOPamine 400MG / 250ML D5W (Cath Lab Use ONLY) ONE (15:47)
--- NOTE | 2021-12-04 16:52 | Post Anesthesia Assessment ---
Date of Service December 04, 2021 Post Sedation Assessment Vital Signs Temp Pulse Pulse Pulse Resp BP Pulse Ox 12/04/21 11:25 64 20 124/69 98 12/04/21 07:37 98.2 F 73 12 130/70 98 12/04/21 07:18 69 12/04/21 03:39 97.9 F 68 18 104/68 95 12/03/21 22:37 98.4 F 66 18 104/62 95 12/03/21 22:18 61 12/03/21 19:15 99.0 F 76 18 121/69 96 Recovery Score Activity: Moves 4 extremities Respiration: Deep Breath/Cough Circulation: +/-20% PreAnes Value Consciousness: Fully Awake Oxygen Saturation: O2 needed for >90% Discharge Sedation Level of Care: Fast Track Phase II Post Sedation Plan On clinical assessment, the patient appears to have tolerated the sedation without complications. Patient is recovering as anticipated. Patient will continue to be monitored by nursing and may be discharged when sedation discharge criteria are met per below protocol. Upon Completions of procedure up to 15 minutes continue every 5 minute vital signs and the P.A.R. score; then discharge to a Phase I or Fast Track to Phase II per the following guidelines: * Discharge Patient to appropriate Phase II area if PAR is 8 or greater or return to pre- procedure baseline. The post - procedure orders will be as directed. * If PAR score is less than 8 or not return to pre-procedure baseline then patient will follow Phase I monitoring till PAR is reached for Phase II. The Phase I may be done in procedure room or may call to secure a Phase I area. * If naloxone or flumazenil are used for reversal, hold in Phase I for continued monitoring from when last reversal dose was given for a minimum of 60 minutes or longer pending the nurse and/or physician discretion of patient condition before discharge to Phase II. Please call the Sedation Physician to re-evaluate and complete post-note for discharge to Phase II area. Do NOT discharge from procedure sedation or Phase 1 until post- sedation evaluation note is complete by procedure /sedation MD Sedation Discharge Instructions to be given to the patient at discharge to home.
[2021-12-04] MEDS ORDERED: EPTIFIBATIDE BOLUS/DRIP IV STA (16:56)
[2021-12-04] MEDS ORDERED: SODIUM CHLORIDE 0.9% 1000ML 1,000 ML IV SCH (17:00)
[2021-12-04] MEDS ORDERED: ACETAMINOPHEN W/CODEINE #3 1 TAB PO PRN (17:08)
[2021-12-04] MEDS: HEPARIN SODIUM/DEXTROSE 25,000 UNITS/500 ML BAG IV SCH (17:08)
--- NOTE | 2021-12-04 17:08 | Critical Care Consultation ---
Date of Consultation December 04, 2021 Assessment & Plan (1) Non-ST elevation (NSTEMI) myocardial infarction: (2) Ischemic dilated cardiomyopathy: Impression: 66-year-old male with extensive coronary history presenting with acute coronary syndrome/non-ST elevation myocardial infarction. He was taken to the [facility] and had multiple stents placed. Please refer to cardiology notes. He is being monitored in the ICU post procedure. Recommendations: 1. Acute coronary syndrome: Management per cardiology. He is currently pain- free. We will continue to monitor at this point time. He initially required dopamine but this has been turned off. 2. Hypertension: Continue statin beta-natividad. Will defer additional antiplatelet and anticoagulation to cardiology. 3. Mild anemia: Asymptomatic currently. We will continue to follow. No indication for transfusion currently. 4. History of septic hip. Patient's had definitive therapy. He is on vancomycin now. Continue under the direction of ID and orthopedics. Pharmacy to assist in dosing. We will try and improve mobility is much as possible once the patient is cleared from his groin access. Management of the patient's other medical issues is deferred to the admitting hospitalist service. Feel free to contact us if we can be of additional assistance. I anticipate that if the patient does well he can likely transfer out of the ICU within the next 12 to 18 hours. History of Present Illness Attending Physician: Jhonny Elizabeth DO History of Present Illness Asked by hospitalist to assist in evaluation management as patient post cardiac cath. History is obtained from discussion with the patient as well as review the electronic medical record. Patient is a 66-year-old male with an extensive history of coronary disease. He was admitted to the facility 12/03/2021 with complaints of chest tightness. He was found to have non-ST elevation myocardial infarction and was recommended to undergo cardiac catheterization today. He was taken to the [facility] and multiple stents were placed. He initially required dopamine. This has been weaned off. He is transferred to the ICU. He is pain-free. His only complaint currently is some pain at the Angio-Seal device in his groin. 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 He denies any chest pain or palpitations. Allergies Allergy/AdvReac Type Severity Reaction Status Date / Time Bvltqot-YHV-BdT Reductase Allergy Intermediate AFFECTS Verified 12/03/21 08:36 Inhibitor LIVER [Hbvifhw-Ldz-Enp Reductase Inhibitor] amoxicillin Allergy Mild "GETS Verified 12/03/21 08:36 INFECTIONS" Home Medications Medication Instructions Recorded Confirmed Type cholecalciferol (vitamin D3) 25 1,000 unit PO QAM 01/01/21 12/03/21 History mcg (1,000 unit) capsule rosuvastatin 40 mg tablet 40 mg PO QAM 01/01/21 12/03/21 History cyanocobalamin (vitamin B-12) 1,000 mcg PO QAM #90 tab 02/01/21 12/03/21 Rx 1,000 mcg tablet (Vitamin B-12) multivitamin 1 tab PO QAM 06/11/21 12/03/21 History nitroglycerin 0.4 mg sublingual 0.4 mg SUBLINGUAL UD PRN #25 tab 06/19/21 12/03/21 Rx tablet metoprolol succinate 50 mg 50 mg PO QAM #90 tab 08/18/21 12/03/21 Rx tablet,extended release 24 hr aspirin 81 mg tablet,delayed 81 mg PO BID #0 tab 12/01/21 12/03/21 Rx release cefadroxil 500 mg capsule 500 mg PO BID 12/03/21 12/03/21 History ezetimibe 10 mg tablet (Zetia) 10 mg PO QAM 12/03/21 12/03/21 History Patient History Medical History Arteriosclerosis of carotid artery BPH (benign prostatic hyperplasia) CAD, multiple vessel Dilated aortic root Hyperlipidemia Hypertension Ischemic dilated cardiomyopathy Left ventricular apical thrombus Leukopenia Lumbar compression fracture HX-NO SURGERY Myocardial Infarction Obesity (BMI 30.0-34.9) Osteoarthritis Surgical History (Updated 12/04/21 @ 14:42 by Ibrahima Marin MD) H/O carotid endarterectomy RIGHT[facility] H/O knee surgery H/O total hip arthroplasty History of cardiac cath History of cardiac cath History of colonoscopy History of coronary artery bypass graft S/P coronary artery stent placement Family History Mother Diabetes Gallbladder disease Hypertension Kidney stones Sister Anxiety Seizure Father Cardiac disorder Gallbladder disease Hypertension Kidney stones Leukemia Social History Smoking Status: Never smoker Second Hand Exposure: No; Do You Dip or Chew Tobacco: No; Tobacco Cessation Education Requested by Patient: No Hx Alcohol Use: Yes Alcohol type: beer Alcohol Intake Frequency: 4 or More x per/Week Alcohol Intake Frequency Comment: 1-2 beers per night Hx Substance Use: No Preferred Language: Kiswahili Communication Ability: Effective Visual Impairment: No Limitations Hearing Ability: Normal Assembler Filters Required: No Beliefs That Will Affect Care: None marital status: Current Living Situation: Alone current occupational status: employed Other Information That Helps Us Care for You: No Feels Safe at Home: Yes Safety Concerns: Feels Safe At This Time Childhood Exposure to Second-Hand Smoke: Yes caffeine: Yes Dental Care, Regularly: No Physical Activity Frequency: Daily Seatbelt Use: never Sunscreen Use: Yes Assistive Devices: None Review of Systems Review of Systems: All systems reviewed & are unremarkable except as noted in Subjective Physical Exam Constitutional: WD/WN, vitals as above Neck: trachea midline, no thyromegaly Respiratory: normal respiratory effort, lungs clear to auscultation Cardiovascular: RRR, no murmur, no edema Gastrointestinal (Abdomen): normal bowel sounds, soft, nontender, no hepatosplenomegaly Musculoskeletal: Extremities: extremities normal to inspection Skin: no rashes, warm and dry Neurologic: Nonfocal exam Lymphatic: no cervical lymphadenopathy Results & Data Results & Data ([facility]) Vital Signs (Past 12 Hours) Vital Signs Temp Pulse Pulse Resp BP Pulse Ox 12/04/21 11:25 64 20 124/69 98 12/04/21 07:37 36.8 C 73 12 130/70 98 12/04/21 07:18 69 Critical Care Results & Data Vital Signs (Past 12 Hours) Vital Signs Temp Pulse Pulse Resp BP Pulse Ox 12/04/21 11:25 64 20 124/69 98 12/04/21 07:37 36.8 C 73 12 130/70 98 12/04/21 07:18 69 Lab & Micro Results (Past 24 Hours) RBC 3.56 M/uL (4.7-6.1) L 12/04/21 WBC 5.55 K/uL (4.8-10.8) 12/04/21 Hgb 10.9 g/dL (14.0-18.0) L 12/04/21 Hct 32.8 % (42-52) L 12/04/21 MCV 92.1 fL (80-100) 12/04/21 MCH 30.6 pg (25-34) 12/04/21 MCHC 33.2 g/dL (32-36) 12/04/21 RDW Standard Deviation 44.7 fL (36.4-46.3) 12/04/21 RDW Coefficient of Variation 13.2 % (11.5-14.5) 12/04/21 Plt Count 329 K/uL (130-400) 12/04/21 MPV 10.0 fL (7.4-10.4) 12/04/21 Neutrophils (%) (Auto) 59.7 % 12/04/21 Lymphocytes (%) (Auto) 24.7 % 12/04/21 Monocytes # (Auto) 0.59 K/uL (0.11-0.59) 12/04/21 Eosinophils # (Auto) 0.23 K/uL (0-0.5) 12/04/21 Immature Granulocyte % (Auto) 0.4 % 12/04/21 Neutrophils # (Auto) 3.31 K/uL (1.4-6.5) 12/04/21 Lymphocytes # (Auto) 1.37 K/uL (1.2-3.4) 12/04/21 Monocytes # (Auto) 0.59 K/uL (0.11-0.59) 12/04/21 Eosinophils # (Auto) 0.23 K/uL (0-0.5) 12/04/21 Basophils # (Auto) 0.03 K/uL (0-0.2) 12/04/21 Immature Granulocyte # (Auto) 0.02 K/uL (0.00-0.02) 12/04/21 Na 138 mmol/L (136-145) 12/04/21 K 3.8 mmol/L (3.5-5.1) 12/04/21 Cl 106 mmol/L (98-107) 12/04/21 CO2 27 mmol/L (21-32) 12/04/21 Anion Gap 5 (3-11) 12/04/21 BUN 14 mg/dl (6-23) 12/04/21 Creatinine 0.77 mg/dl (0.6-1.4) 12/04/21 Estimated GFR ( Amer) 111.2 ml/min 12/04/21 Estimated GFR (Non-Af Amer) 95.9 ml/min 12/04/21 BUN/Creatinine Ratio 18.2 (10-20) 12/04/21 Glu 107 mg/dl (70-99(Fasting)) H 12/04/21 Ca 8.3 mg/dl (8.5-10.1) L 12/04/21 Calcium Level 8.3 mg/dl (8.5-10.1) L 12/04/21 06:08 12/04/21 I & O Totals 24 Hours 12/03/21 12/04/21 12/05/21 06:59 06:59 06:59 Intake Total 2125.333 / 2125.333 240 / 240 Output Total 1825 / 1825 475 / 475 Balance 300.333 / 300.333 -235 / -235 Cumulative 12/03/21 07:27 thru 12/04/21 10:22 Intake Total 2365.333 Output Total 2300 Balance 65.333 RT Ventilator Mngmt (Last Documented) Ventilator Ordered Settings Respiratory Rate 20 12/04/21 11:25 Ventilator - PT Measurements Respiratory Rate 20 Coding Level of Care Code 58373 Inpt Consult Level 3 Diagnoses Non-ST elevation (NSTEMI) myocardial infarction I21.4 Ischemic dilated cardiomyopathy I25.5; I42.0
[2021-12-04] MEDS: EPTIFIBATIDE 75 MG/100 ML VIAL IV SCH ×2 (17:19→23:20)
[2021-12-04] MEDS ORDERED: TICAGRELOR 90 MG TAB PO STA (18:08)
--- NOTE | 2021-12-04 18:08 | Billing Data ---
Date of Service December 04, 2021 Coding Level of Care Code 72383 Subseq Hosp Care Lvl 3
[2021-12-04] MEDS ORDERED: Nursing to Pharmacy Communication SCH (18:15)
--- NOTE | 2021-12-04 18:51 | Cardiac Catheterization ---
[facility] Data: Credit Risk Specialist Cardiac Status Clinical evaluation leading to the procedure CAD Presenation: Non STEMI Anginal Classification: CCS IV Heart Failure: No Cardiogenic Shock within 24 Hours: No Cardiac Arrest within 24 Hours: No Imaging Studies Past 6 Months: Yes Stress Studies Past 6 Months: No Diagnostic Physicians Name: Qamar Dias MD Status: Elective Closure Device Percutaneous Entry Location: Femoral Closure Device: Angio-Seal Recommendations: PCI without planned CABG PCI Indication: PCI for high risk Non-NIMO Lesion Segment Name: Ostial LAD Culprit Artery: Yes Stenosis Prior to Rx (%): 90 Chronic Total Occlusion: No IVUS: Yes FFR: No Pre-Procedure DOMENICO Flow: 2 Previously Treated Lesion: Timeframe: greater than 2 years Treated with Stent: Yes In-Stent Restenosis: Yes In-Stent Thrombosis: Yes Stent Type: KAITLIN Yes Lesion Complexity: High/C Lesion Length (mm): 25 Thrombus Present: Yes Bifurcation Lesion: Yes Guidewire Across Lesion: Stenosis Post-Procedure (%): 0 Post-Procedure DOMENICO Flow: 3 Devices(s) Deployed: Yes Yes Intraprocedure Events Significant Disection: No Perforation: No Cardiac Cath Procedure Full Procedure Date December 04, 2021 Pre-Procedure Diagnosis Pre-Procedure Diagnosis: Non STEMI AUC Score AUC Score: 8 Post-Procedure Diagnosis Post-Procedure Diagnosis: Severe CAD, Successful PCI and Normal Intracardiac Pressures Procedure(s) Performed Procedure(s) Performed: Coronary Angiography, Left Heart Cath, Drug Eluting Stent, Ultrasound Guided Vascular Access, IVUS and Femoral Artery Angiography Singing Telegram Performer Qamar Dias MD Library Consultant(s) Showers Estimated Blood Loss Estimated Blood Loss: 20 Medication(s) Medication(s): Dopamine, Fentanyl, Heparin, Integrilin, Lidocaine 1%, Nicardipine, Nitroglycerin and Versed Summary of Findings Indication: NSTEMI. History of complex coronary disease. PCI with proximal to mid LAD stent 2008. Inferior [place] 2010. Two-vessel CABG 2010 (MCFARLANE to LAD, SVG to OM1), grafts known to be occluded. PCI with KAITLIN of left main into LAD 03/2014 . RCA known to be occluded with right to right and [id number] collaterals. Access: 6 Fr right radial artery, 6 Fr right CLINICAL DOCUMENTATION DEVELOPER access under ultrasound guidance Catheters: [place], 5 Fr JL 3.5 guide, JR4 guide. Intervention via EBU 3.75 guide from femoral artery. Findings: LM -normal caliber, left main stent widely patent LAD -stents extending from left main to mid LAD patent with 90% ostial in-stent restenosis/thrombosis, 70% ISR at the distal end mid LAD stent. 50% mid LAD stenosis prior to D2. 95% distal stenosis with DOMENICO II flow in apical segment. Circumflex -40% ostial stenosis extending into large high OM1. Small, mid to distal AV groove circumflex without significant disease RCA -dominant, not well visualized, known to be occluded proximally LVEDP -9 -- PCI -- Antithrombotic therapy: Heparin, Integrilin Procedure: Initial angiography via right radial artery. With complex coronary anatomy, dilated aortic root and tortuous subclavian procedure converted to femoral approach. Left main cannulated with EBU 3.75 guide Napper Fixer 50 wire passed across lesion into latemid LAD. Brief attempt made to cross distal LAD stenosis but unable to pass. Prowater wire navigated into distal OM1 Ostial to mid LAD stent dilated with 2.0, 3.0 balloons Broadbent IVUS catheter placed into mid LAD. Pullback revealed moderate mid LAD disease, moderate ISR at distal aspects of prior stent. Heavily calcified throughout vessel. Severe disease at LAD ostium. Left main stent widely patent without significant in-stent restenosis. LAD stents redilated with 3.5 NC balloon Ostial/proximal LAD ISR restented with 3.5 x 15 mm Xience drug-eluting stent Circumflex rewired with pilot instructor 50 wire New proximal LAD stent post-dilated with 4.0 noncompliant balloon Repeat Broadbent IVUS revealed well-expanded proximal stent Intervention wires removed Patient endorsed new chest pain, nausea and noted to be diaphoretic. Repeat angiography revealed haziness in distal aspect of prior stent and new occlusion at distal LAD (apex known to be infarcted/akinetic on prior echoes). Started on IV Integrilin. LAD rewired with pilot instructor 50 wire. Patient more hypotensive with blood pressures to the 70s, treated with IV fluid bolus. Second KAITLIN (3.0 x 12 mm Xience) to mid LAD overlapping distal aspect of prior stent Stent postdilated with stent balloon. Patient remained hypotensive to the 70s. Started on dopamine 5 mcg/kg/min Repeat angiography revealed severe circumflex ostial stenosis with DOMENICO II flow in circumflex distal Circumflex/OM1 rewired with pilot instructor 50 wire. Ostium of circumflex dilated with 2.0 and 2.5 balloons Additional stent (3.5 x 12 mm Xience) placed to ostium of circumflex into proximal OM1. Postdilated with stent balloon Repeat angiography revealed worsened ostial LAD stenosis Kissing balloon inflation with 2.5 balloon to LAD and 3.0 balloon to circumflex Post procedure DOMENICO 3 flow in LAD, circumflex. Flow reestablished in apical LAD. Stents well expanded with minimal residual stenosis and no apparent cardiac complications. Repeat LVEDP 6. Additional IV fluid bolus. Dopamine weaned off. Arterial Closure: Angio-Seal, TR band Summary: 1. Severe multi-vessel coronary artery disease Widely patent left main stent -90% ostial, 70% mid LAD in-stent restenosis. Chronic 95% distal LAD stenosis 40% ostial circumflex Known proximal RCA 100% chronic total occlusion 2. Known occluded MCFARLANE to LAD, SVG to OM1 3. Normal intracardiac filling pressure 4. Successful PCI of LAD in-stent restenosis with KAITLIN to ostial LAD (3.5 x 15 Xience; postdilated with 4.0 NC) and KAITLIN to mid LAD ISR (3.0 x 12 Xience). 5. Successful PCI of ostial circumflex into high OM1 with single KAITLIN (3.5 x 12 Xience). Recommendations: To ICU for continued monitoring Load with ticagrelor 180 mg Continue Integrilin infusion for 6 hours Continue dual-antiplatelet therapy for a least 1 year, likely indefinitely Continue statin, and ASCVD risk factor modification Consult cardiac Rehab Hemodynamics Rest Ao:: 92/56/77 Final Ao: 99/54/72 LV: 99/9 Recommendations Recommendations: PCI without planned CABG Specimens Specimens: None Radiation Exposure (mGy) 8644 Contrast (mls) 290 Drains Drains: None Anesthesia Moderate 6725-3669 Procedural Complication(s) None Disposition ICU I attest to the content of the Intraoperative Record and any orders documented therein. Any exceptions are noted below. [employer] Card Cath Procedure Codes Cardiac Catheterization Procedure 1: Cardiovascular Cath Procedures: 08936 Coronaries and LHC (+/-LV) Therapeutic Services & Ancillary Proc Procedure 1: Cardiovascular Tx and Anc Procedures: 46753 IV Ultrasound (Coronary or Graft) Moderate Sedation Procedure 1: Sedation/Anesthesia: 66408 Mod Sedation by the same physician;Init15 Min Child Age 5 & Up Procedure 2: Sedation/Anesthesia: 90939 Mod Sedation by the same physician; Ea [id number] Minutes Stenting Procedure 1: Cardiovascular Stent Procedures: 17195 Perc transcatheter placement of intracoronary stent(s), with ang Procedure 2: Cardiovascular Stent Procedures: 65870 Ea addl branch of a major coronary artery PG Care Time/CCT Total # of Minutes Spent Total Time Spent with Patient: Total time spent is greater than 50% in coordination of care (as documented) at patient's floor/unit and/or counseling patient:
--- NOTE | 2021-12-04 19:56 | Pharmacy Report ---
Pharmacy Vanc AUC Short Note - Date of Service December 04, 2021 - Assessment & Plan Assessment 66 year old M receiving IV vancomycin for treatment of right hip infection s/p hip arthroplasty Day #9 of antimicrobial therapy. * Had hip arthroplasty in 09/2021 with subsequent infection. On IV Vancomycin at home via PICC line. Patient states hip is feeling much improved. * Underwent cardiac catheterization today. 1200 dose was not given until 1935. Trough drawn late. Adjusted vanc times based on this. Plan Vancomycin * AUC/GERI is the preferred PK/PD target for vancomycin * AUC guided dosing is effective and associated with decreased risk of nephrotoxicity compared to traditional trough targets * Trough level of 9.5 mcg/mL is subtherapeutic. However, this was drawn ~ 6 hours late. Therefore, expect true trough to be therapeutic. * Continue dose of 2000 mg IV every 12 hours * Predicted to achieve target AUC/GERI of 558 (goal 400-600) mg/L.hr and may be associated with a 10% risk of nephrotoxicity * Trough ordered for 12/07/21 prior to 0700 dose. Pharmacy will continue to follow and will adjust dose/frequency as necessary. Thank you.
[2021-12-05 05:38] LABS: Basophils # (auto) 0.03 K/uL (0-0.2); Basophils % (auto) 0.4 %; Eosinophils # (auto) 0.12 K/uL (0-0.5); Eosinophils % (auto) 1.7 %; Hematocrit (blood only) 33.2 % (42-52); Immature Granulocytes # (auto) 0.01 K/uL (0.00-0.02); Immature Granulocytes % (auto) 0.1 %; Lymphocytes # (auto) 0.97 K/uL (1.2-3.4); Lymphocytes % (auto) 13.9 %; Mean Corpuscular Hemoglobin 30.5 pg (25-34); Mean Corpuscular Hgb Conc 33.1 g/dL (32-36); Mean Platelet Volume 10.2 fL (7.4-10.4); Monocytes # (auto) 0.69 K/uL (0.11-0.59); Monocytes % (auto) 9.9 %; Neutrophils # (auto) 5.15 K/uL (1.4-6.5); Platelet Count 340 K/uL (130-400); RDW Coefficient of Variation 13.3 % (11.5-14.5); RDW Standard Deviation 44.9 fL (36.4-46.3); Red Blood Count 3.61 M/uL (4.7-6.1); White Blood Count 6.97 K/uL (4.8-10.8)
[2021-12-05] MEDS: VANCOMYCIN HCL 2,000 MG in SODIUM CHLORIDE 0.9% 500 ML IV SCH (05:58)
[2021-12-05 06:02] LABS: Albumin Globulin Ratio 1.2 (0.9-2); BUN Creatinine Ratio 21.4 (10-20); Bilirubin,Total 0.5 mg/dl (0.2-1.0); Calcium 8.1 mg/dl (8.5-10.1); Creatinine Clr Calc Pharmacy 136.1 ml/min; Est GFR (African American) 115.6 ml/min; Est GFR (Non-African American) 99.7 ml/min; Globulin 2.6 gm/dl (2.5-4.0); Magnesium 1.8 mg/dl (1.7-2.4); Potassium 3.6 mmol/L (3.5-5.1); Total Protein 5.6 gm/dl (6.0-8.3)
[2021-12-05] MEDS ORDERED: POTASSIUM CHLORIDE CRTAB 20 MEQ TABCR PO STA (06:05)
[2021-12-05] MEDS: MAGNESIUM SULFATE / D5W 1 GM/100 ML BAG IV SCH ×2 (06:31→08:38)
--- NOTE | 2021-12-05 08:04 | Critical Care Progress Note ---
Date of Service December 05, 2021 Assessment & Plan (1) Non-ST elevation (NSTEMI) myocardial infarction: (2) Ischemic dilated cardiomyopathy: Plan: Impression: 66-year-old male with extensive coronary history presenting with acute coronary syndrome/non-ST elevation myocardial infarction. He was taken to the [facility] and had multiple stents placed. Please refer to cardiology notes. He is doing well and chest pain-free. He is hemodynamically stable. Recommendations: 1. Acute coronary syndrome: Management per cardiology. He is currently pain- free. We will continue to monitor at this point time. No pressor requirement 2. Hypertension: Continue statin beta-natividad. Will defer additional antiplatelet and anticoagulation to cardiology. 3. Mild anemia: Asymptomatic currently. We will continue to follow. No indication for transfusion currently. 4. History of septic hip. Patient's had definitive therapy. He is on vancomycin now. Continue under the direction of ID and orthopedics. Pharmacy to assist in dosing. Will need continued home health at discharge OOB to chair and ambulate as tolerated Patient is stable to discharge from the ICU. Will defer ultimate disposition to the hospitalist and cardiology service. Critical care services will sign off. Feel free to contact us if our services are required Admission and Anticipated Discharge Date Admission Date: December 04, 2021 Physical Exam Constitutional: WD/WN, vitals as above Neck: trachea midline, no thyromegaly Respiratory: normal respiratory effort, lungs clear to auscultation Cardiovascular: RRR, no murmur, no edema Gastrointestinal (Abdomen): normal bowel sounds, soft, nontender, no hepatosplenomegaly Musculoskeletal: Extremities: extremities normal to inspection Skin: no rashes, warm and dry Lymphatic: no cervical lymphadenopathy Results & Data Results & Data ([facility]) Vital Signs (Past 12 Hours) Vital Signs Temp Pulse Pulse Resp BP Pulse Ox 12/05/21 06:30 71 14 96 12/05/21 06:00 84 15 112/69 98 12/05/21 05:30 77 15 95 12/05/21 05:00 83 17 108/72 97 12/05/21 04:30 80 26 H 92 12/05/21 04:00 75 8 L 111/66 96 12/05/21 03:30 85 19 100 12/05/21 03:15 72 24 94 12/05/21 03:00 37.1 C 77 9 L 115/70 96 12/05/21 02:45 83 27 H 93 12/05/21 02:30 70 13 93 12/05/21 02:15 84 29 H 88 L 12/05/21 02:00 74 9 L 115/75 97 12/05/21 01:45 83 23 94 12/05/21 01:30 76 25 H 96 12/05/21 01:15 75 9 L 97 12/05/21 01:00 82 24 98/55 L 94 12/05/21 00:45 75 16 95 12/05/21 00:30 79 14 95 12/05/21 00:23 76 12/05/21 00:15 77 8 L 96 12/05/21 00:00 76 14 111/66 97 12/04/21 23:45 78 24 95 12/04/21 23:30 86 21 96 12/04/21 23:15 82 13 99/69 L 97 12/04/21 23:05 37.0 C 78 22 110/68 98 12/04/21 23:03 81 8 L 12/04/21 22:46 76 21 116/67 95 12/04/21 22:45 75 22 96 12/04/21 22:30 74 21 135/79 95 12/04/21 22:15 77 14 118/69 96 12/04/21 22:11 37.0 C 70 71 15 96 12/04/21 22:00 72 14 125/75 93 12/04/21 21:45 70 9 L 128/71 95 12/04/21 21:31 73 12 110/64 99 12/04/21 21:30 87 25 H 96 12/04/21 21:15 74 14 122/66 96 12/04/21 21:00 69 15 115/63 97 12/04/21 20:45 76 16 118/66 95 12/04/21 20:30 83 14 112/70 95 12/04/21 20:15 76 14 123/77 95 Critical Care Results & Data Vital Signs (Past 12 Hours) Vital Signs Temp Pulse Pulse Resp BP Pulse Ox 12/05/21 06:30 71 14 96 12/05/21 06:00 84 15 112/69 98 12/05/21 05:30 77 15 95 12/05/21 05:00 83 17 108/72 97 12/05/21 04:30 80 26 H 92 12/05/21 04:00 75 8 L 111/66 96 12/05/21 03:30 85 19 100 12/05/21 03:15 72 24 94 12/05/21 03:00 37.1 C 77 9 L 115/70 96 12/05/21 02:45 83 27 H 93 12/05/21 02:30 70 13 93 12/05/21 02:15 84 29 H 88 L 12/05/21 02:00 74 9 L 115/75 97 12/05/21 01:45 83 23 94 12/05/21 01:30 76 25 H 96 12/05/21 01:15 75 9 L 97 12/05/21 01:00 82 24 98/55 L 94 12/05/21 00:45 75 16 95 12/05/21 00:30 79 14 95 12/05/21 00:23 76 12/05/21 00:15 77 8 L 96 12/05/21 00:00 76 14 111/66 97 12/04/21 23:45 78 24 95 12/04/21 23:30 86 21 96 12/04/21 23:15 82 13 99/69 L 97 12/04/21 23:05 37.0 C 78 22 110/68 98 12/04/21 23:03 81 8 L 12/04/21 22:46 76 21 116/67 95 12/04/21 22:45 75 22 96 12/04/21 22:30 74 21 135/79 95 12/04/21 22:15 77 14 118/69 96 12/04/21 22:11 37.0 C 70 71 15 96 12/04/21 22:00 72 14 125/75 93 12/04/21 21:45 70 9 L 128/71 95 12/04/21 21:31 73 12 110/64 99 12/04/21 21:30 87 25 H 96 12/04/21 21:15 74 14 122/66 96 12/04/21 21:00 69 15 115/63 97 12/04/21 20:45 76 16 118/66 95 12/04/21 20:30 83 14 112/70 95 12/04/21 20:15 76 14 123/77 95 Lab & Micro Results (Past 24 Hours) RBC 3.61 M/uL (4.7-6.1) L 12/05/21 WBC 6.97 K/uL (4.8-10.8) 12/05/21 Hgb 11.0 g/dL (14.0-18.0) L 12/05/21 Hct 33.2 % (42-52) L 12/05/21 MCV 92.0 fL (80-100) 12/05/21 MCH 30.5 pg (25-34) 12/05/21 MCHC 33.1 g/dL (32-36) 12/05/21 RDW Standard Deviation 44.9 fL (36.4-46.3) 12/05/21 RDW Coefficient of Variation 13.3 % (11.5-14.5) 12/05/21 Plt Count 340 K/uL (130-400) 12/05/21 MPV 10.2 fL (7.4-10.4) 12/05/21 Neutrophils (%) (Auto) 74.0 % 12/05/21 Lymphocytes (%) (Auto) 13.9 % 12/05/21 Monocytes # (Auto) 0.69 K/uL (0.11-0.59) H 12/05/21 Eosinophils # (Auto) 0.12 K/uL (0-0.5) 12/05/21 Immature Granulocyte % (Auto) 0.1 % 12/05/21 Neutrophils # (Auto) 5.15 K/uL (1.4-6.5) 12/05/21 Lymphocytes # (Auto) 0.97 K/uL (1.2-3.4) L 12/05/21 Monocytes # (Auto) 0.69 K/uL (0.11-0.59) H 12/05/21 Eosinophils # (Auto) 0.12 K/uL (0-0.5) 12/05/21 Basophils # (Auto) 0.03 K/uL (0-0.2) 12/05/21 Immature Granulocyte # (Auto) 0.01 K/uL (0.00-0.02) 12/05/21 Na 137 mmol/L (136-145) 12/05/21 K 3.6 mmol/L (3.5-5.1) 12/05/21 Cl 105 mmol/L (98-107) 12/05/21 CO2 25 mmol/L (21-32) 12/05/21 Anion Gap 7 (3-11) 12/05/21 BUN 15 mg/dl (6-23) 12/05/21 Creatinine 0.70 mg/dl (0.6-1.4) 12/05/21 Estimated GFR ( Amer) 115.6 ml/min 12/05/21 Estimated GFR (Non-Af Amer) 99.7 ml/min 12/05/21 BUN/Creatinine Ratio 21.4 (10-20) H 12/05/21 Glu 101 mg/dl (70-99(Fasting)) H 12/05/21 Ca 8.1 mg/dl (8.5-10.1) L 12/05/21 Phosphorus Level 2.7 mg/dl (2.5-4.9) 12/05/21 Total Bilirubin 0.5 mg/dl (0.2-1.0) 12/05/21 AST 72 U/L (13-39) H 12/05/21 ALT 57 U/L (7-52) H 12/05/21 Alkaline Phosphatase 69 U/L (34-104) 12/05/21 TP 5.6 gm/dl (6.0-8.3) L 12/05/21 Albumin 3.0 gm/dl (3.4-5.0) L 12/05/21 Globulin 2.6 gm/dl (2.5-4.0) 12/05/21 Albumin/Globulin Ratio 1.2 (0.9-2) 12/05/21 Mg 1.8 mg/dl (1.7-2.4) 12/05/21 04:08 12/05/21 Calcium Level 8.1 mg/dl (8.5-10.1) L 12/05/21 04:08 12/05/21 I & O Totals 24 Hours 12/04/21 12/05/21 12/06/21 06:59 06:59 06:59 Intake Total 2125.333 / 2125.333 2049.667 / 2049.667 Output Total 1825 / 1825 1650 / 1650 Balance 300.333 / 300.333 399.667 / 399.667 Cumulative 12/03/21 07:27 thru 12/05/21 05:50 Intake Total 4175.000 Output Total 3475 Balance 700.000 RT Ventilator Mngmt (Last Documented) Ventilator Ordered Settings Respiratory Rate 14 12/05/21 06:30 Ventilator - PT Measurements Respiratory Rate 14 Coding Level of Care Code 65437 Subseq Hosp Care Lvl 2 Diagnoses Non-ST elevation (NSTEMI) myocardial infarction I21.4 Ischemic dilated cardiomyopathy I25.5; I42.0
[2021-12-05] MEDS: EZETIMIBE 10 MG TABLET PO SCH (08:33)
[2021-12-05] MEDS: CYANOCOBALAMIN (B-12) 500 MCG TABLET PO SCH (08:33)
[2021-12-05] MEDS: ASPIRIN 81 MG ECTAB PO SCH (08:34)
[2021-12-05] MEDS: MULTIVITAMIN TAB PO SCH (08:34)
[2021-12-05] MEDS: METOPROLOL SUCC 50MG EXT REL TAB PO SCH (08:34)
[2021-12-05] MEDS: CHOLECALCIFEROL 1,000 UNITS 25 MCG TAB PO SCH (08:34)
[2021-12-05] MEDS: ACETAMINOPHEN 325 MG TAB PO PRN (08:42)
[2021-12-05] MEDS ORDERED: ROSUVASTATIN CALCIUM 10 MG TAB PO SCH (09:00)
[2021-12-05] MEDS ORDERED: TICAGRELOR 90 MG TAB PO SCH (09:00)
[2021-12-05] MEDS ORDERED: LOSARTAN POTASSIUM 25 MG TAB PO SCH (10:00)
--- NOTE | 2021-12-05 10:51 | Electrocardiogram Report ---
Test Reason : Blood Pressure : / mmHG Vent. Rate : 078 BPM Atrial Rate : 078 BPM P-R Int : 196 ms QRS Dur : 096 ms QT Int : 382 ms P-R-T Axes : 046 024 -67 degrees QTc Int : 435 ms Normal sinus rhythm Low voltage QRS Anterior infarct (cited on or before 21-MAY-2012) T wave abnormality, consider inferolateral ischemia Abnormal ECG When compared with ECG of 04-DEC-2021 06:22, T wave inversion less evident in Lateral leads Confirmed by Zander Bolaños ([id number]) on 12/05/2021 10:51:33 AM Referred By: REFERRED SELF Confirmed By:Zander Bolaños
--- NOTE | 2021-12-05 12:15 | Med Student Discharge Summary ---
Date of Service December 05, 2021 Admission HPI Per Admitting Provider 66 yo M with CAD, hx CABG with occlusion s/p stent placement, ischemic dilated cardiomyopathy, HLD, HTN, PAD, obesity, recently admitted for infection of prosthetic hip joint, in ER today for episode of chest pain. Describes episode at 5:30 this morning where he was sitting in a chair after walking from the bathroom and felt tightness in his chest that was associated with some sweating as well. Denies any SOB or radiation of pain at the time. He says the episode went away on its own in 10-15 minutes. He was able to take a baby aspirin and nitro tab by the time the pain had already started to fade. He denies any other episodes of chest pain while sitting or while exerting himself. ER Course: ASA 325, CXR, EKG, initial labwork prior to calling hospitalist for admission. He denies any fevers, chills, night sweats, trouble breathing, calf pain. He has been able to take all of his medications at home. Admission Exam (Per Admitting) Constitutional WD/WN, vitals as above [facility] Mallampati Class: III Neck trachea midline, no thyromegaly Respiratory normal respiratory effort, lungs clear to auscultation Cardiovascular RRR, no murmur, no edema Gastrointestinal (Abdomen) normal bowel sounds, soft, nontender, no hepatosplenomegaly Musculoskeletal Extremities: extremities normal to inspection Skin no rashes, warm and dry Lymphatic no cervical lymphadenopathy Discharge Exam Constitutional WD/WN, vitals as above [facility] Mallampati Class: III Neck trachea midline, no thyromegaly Respiratory normal respiratory effort, lungs clear to auscultation Cardiovascular RRR, no murmur, no edema Gastrointestinal (Abdomen) normal bowel sounds, soft, nontender, no hepatosplenomegaly Musculoskeletal Extremities: extremities normal to inspection Skin no rashes, warm and dry Lymphatic no cervical lymphadenopathy Discharge Data Consultations 12/03/21 10:51 ED Decision to Admit Stat 12/03/21 12:23 Consult Cardiology Routine 12/04/21 16:59 Consult Cardiac Rehabilitation Routine Procedures Performed Operation Date: 12/04/21 12:00 Actual Procedures s Cineradiography w/Routine Exam - Cem Dias MD s Drug Eluting Stent SGl Vessel - Cem Dias MD s Ultrasound Vascular Access - Cem Dias MD p Cath, Left w/Cors Vent Grafts - Cem Dias MD s IVUS Coronary Single Vessel - Cem Dias MD s Drug Eluting Stent each ADDTL Vessel - Cem Dias MD Hospital Course (1) Chest pain: 66 yo M with extensive cardiac hx including CAD s/p Stent, CABG, HTN, HLD, ischemic dilated cardiomyopathy (EF 40%) recently discharged from hospital stay for infection of prosthetic right hip joint, admitted for chest pain workup. NSTEMI Catheterization on 12-04-2021: 2 LAD stents placed and 1 left circumflex stent placed EKG ST-T-wave abnormalities resolving - continue ASA 81 mg ONCE daily - starting Brilinta 90mg twice per day - starting Losartan 25mg once per day - nitro for chest pain - follow with Dr. Marin @ 1-2 weeks; follow up with cardiac rehab - BMP @ 2 weeks - talk to PCP about cardiac diet Extensive CAD/ischemic dilated cardiomyopathy/CABG hx - continue home metoprolol, zetia, rosuvastatin Prosthetic R Hip infection - ASA 81 mg as stated above for ppx - Continue vancomycin at home - follow up with orthopedic surgery Dilated aortic root - no heavy lifting Discharge Plan Discharge Items Patient Disposition: Home - Self-Care Reason For Visit: CHEST PAIN Discharge Diagnosis: NSTEMI Activity: Per Instructions section Non-emergency contact: Primary Care Provider and Interventional Physician Call non-emergency contact if: you have any medication questions and your symptoms worsen Follow-up/Referrals: Ibrahima Marin MD [Physician] - (Follow up appointment scheduled with Devora Parkinson PA-C.) Devora Parkinson PA-C [Physician Windows Phone Developer] - 12/14/21 2:00 pm (Please follow up with Devora Parkinson PA-C on 12/14/21 at 2:00 pm. Please arrive to the office at 1:45 pm for your appointment. If you are unable to keep this appointment, please call the office to reschedule at [phone].) Mick Maguire DO [Primary Care Provider] - 12/12/21 11:30 am (Please follow up with Dr. Maguire on Saturday12/12/21 at 11:30 am. Please arrive to the office at 11:15 am for your appointment. If you are unable to keep this appointment, please call the office to reschedule at [phone].) Diet: Heart Healthy Addtl Attending Provider Instructions: You were admitted to [facility] from 12/03 - 12/05 for a myocardial infarction (heart attack). We consulted Cardiology, and you were taken for a heart catheterization. Three stents were placed in several heart arteries that were blocked off. You were started on several medications due to the heart attack, and you should continue all of these after discharge: 1. Brilinta 90mg twice per day 2. Losartan 25mg once per day 3. Continue home Aspirin, Metoprolol, and Rosuvastatin NOTE: your Aspirin will be decreased to only once per day. You should follow up with Cardiac rehab. You should also follow up with Cardiology and with your primary care physician. Please speak with your primary care physician about eating a more healthy diet, which will be essential to help prevent further heart attacks. You will need to get a blood test done in 2 weeks to ensure that you are doing well on the new medications. Please continue to take Vancomycin for your recent right hip prosthetic infection, with the weekly blood test monitoring as already has been arranged. Please follow up with Orthopedic surgery as previously scheduled. Please continue to take your other home medications as scheduled. Pending Studies at Discharge: No Stand-Alone Forms: My [facility], Smoking Cessation Medications and DC Order Prescriptions: New losartan 25 mg Tablet 25 mg PO QAM Qty: 30 RF: 2 Brilinta 90 mg Tablet 90 mg PO BID Qty: 60 RF: 0 Continued nitroglycerin 0.4 mg tablet, sublingual 0.4 mg sublingual UD PRN (Reason: Chest Pain) Qty: 25 RF: 0 cyanocobalamin (vitamin B-12) [Vitamin B-12] 1,000 mcg tablet 1,000 mcg PO QAM Qty: 90 RF: 3 metoprolol succinate 50 mg tablet extended release 24 hr 50 mg PO QAM Qty: 90 RF: 3 cholecalciferol (vitamin D3) 25 mcg (1,000 unit) capsule 1,000 unit PO QAM RF: 0 rosuvastatin 40 mg tablet 40 mg PO QAM RF: 0 multivitamin Tablet 1 tab PO QAM RF: 0 ezetimibe [Zetia] 10 mg tablet 10 mg PO QAM RF: 0 Changed aspirin 81 mg Tablet,Delayed Release (Dr/Ec) 81 mg PO DAILY Qty: 30 RF: 0 Discontinued cefadroxil 500 mg capsule 500 mg PO BID RF: 0 Discharge Orders: Discharge Order (Routine); Ordered 12/05/21 Ordered By: Brett Sheppard Admission Data Admit Date/Time: 12/04/21 12:35 Attending Provider: Jhonny Elizabeth Admit Provider: Jordan Farrell Primary Care Provider: Mick Maguire Other Providers: Zander Bolaños ; Jose Laura ; [facility] Other Interventions: Discharge Summary Assessment (RN) Last Done: 12/05/21 12:20 Supervising Attestation I personally examined the patient and verified all will points of history and exam, discussed case, and agree with decision making with A Fany MS2 Feeling good. No chest pain. No chest pain with ambulation. Feels up to going home. Discussed lifestylehe seems open to making some positive changes. Discussed medicationshe notes no concern about adherence. Vitals noted, in general he is awake and alert pleasant no distress. HEENT normocephalic atraumatic mucous membranes moist. Breathing unlabored no accessory muscle use good effort. Skin shows no rashes no pallor or icterus. Neuro without focal deficits. NSTEMI/coronary artery diseasestable for home. Med management, lifestyle, secondary risk reduction. Otherwise as above.
--- NOTE | 2021-12-05 12:33 | Electrocardiogram Report ---
Test Reason : Blood Pressure : / mmHG Vent. Rate : 076 BPM Atrial Rate : 076 BPM P-R Int : 188 ms QRS Dur : 098 ms QT Int : 408 ms P-R-T Axes : 029 023 173 degrees QTc Int : 459 ms Normal sinus rhythm Low voltage QRS Poor R wave progression, consider anterior MA vs. lead placement vs. LVH Abnormal ECG When compared with ECG of 04-DEC-2021 17:52, (unconfirmed) No significant change Confirmed by Zander Bolaños ([id number]) on 12/05/2021 12:32:34 PM Referred By: REFERRED SELF Confirmed By:Zander Bolaños
--- NOTE | 2021-12-05 14:39 | Cardiology Progress Note ---
Date of Service December 05, 2021 Assessment & Plan (1) Non-ST elevation (NSTEMI) myocardial infarction: Plan: Patient chest pain-free, hemodynamically and electrically stable. Post procedure labs stable. No access site complications From a cardiac standpoint okay with discharge today. Discharge on DAPT with aspirin, ticagrelor. Continue beta-natividad, statin/zetia Follow-up with Dr. Marin in 1 to 2 weeks Admission and Anticipated Discharge Date Admission Date: December 04, 2021 Subjective Feeling well today. No additional chest pain. No issues overnight. Blood pressure stable off dopamine. Review of Systems Review of Systems: All systems reviewed & are unremarkable except as noted in HPI & below Physical Exam Physical Exam: General: Comfortable HEENT: Sclerae anicteric Lungs: Clear to auscultation bilaterally, no crackles or wheezes Cardiac: Regular rate and rhythm, no murmurs. Vascular: 2+ radial, no hematoma/ecchymosis. Right PL[employer] CHANGER pulse intact, no hemat marlyn. Abdomen: Soft, nontender Extremities: Well perfused, no peripheral edema Neuro: Nonfocal Psych: Alert orient x3, normal affect and mood Results & Data ([facility]) Vital Signs (Past 12 Hours) Vital Signs Temp Pulse Pulse Resp BP BP Pulse Ox 12/05/21 12:20 98.2 F 80 12 98/56 L 97 12/05/21 12:09 98.2 F 80 12 98/56 L 97 12/05/21 08:44 84 13 107/63 12/05/21 08:12 97.9 F 82 17 107/63 98 12/05/21 08:00 82 12 105/60 98 12/05/21 07:00 77 20 111/72 98 12/05/21 06:30 71 14 96 12/05/21 06:00 84 15 112/69 98 12/05/21 05:30 77 15 95 12/05/21 05:00 83 17 108/72 97 12/05/21 04:30 80 26 H 92 12/05/21 04:00 75 8 L 111/66 96 12/05/21 03:30 85 19 100 12/05/21 03:15 72 24 94 12/05/21 03:00 98.8 F 77 9 L 115/70 96 12/05/21 02:45 83 27 H 93 PG Care Time/CCT Total # of Minutes Spent Total Time Spent with Patient: Total time spent is greater than 50% in coordination of care (as documented) at patient's floor/unit and/or counseling patient: Coding Level of Care Code 25775 Subseq Hosp Care Lvl 3 Diagnoses Non-ST elevation (NSTEMI) myocardial infarction I21.4
--- NOTE | 2021-12-05 17:32 | Billing Data ---
Date of Service December 05, 2021 Coding Level of Care Code D/C DAY MANAGEMENT <30 MINS
[2021-12-07] MEDS ORDERED: VANCOMYCIN TROUGH ONE (06:30)
== END 2021-12-05 13:28 | disposition home or self-care (01) | DRG 247 ==
LOC: ED 07:27 → 2N 07:27 → SUATTDRO 11:11 → 2N 13:30 → 1E 12-04 17:06